=== PATIENT | female | born 1940 | race Caucasian/White ===

== ENCOUNTER 2023-09-26 23:48 | Inpatient (IN) | payer MEDICARE, OTHER, SELFPAY ==
[2023-09-26 20:56] VITALS: BP 118/78
[2023-09-26 21:00] VITALS: BP 125/71
--- NOTE | 2023-09-26 21:15 | ED.GENMED ---
History of Present Illness
General
Chief Complaint: Breathing Problem
Source: patient, spouse and family
Time Seen by Provider: 09/26/23 21:06
Travel History
Have you had any contact with someone who has COVID-19?: Yes
Comment: unknown
Do you have any symptoms of coronavirus? Fever > 100 degrees, chills, cough, shortness of breath, sore throat, loss of taste or smell, muscle aches, or headache?: Yes
Symptoms:: cough
History of Present Illness
History of Present Illness:
83-year-old female presents to the emergency room complaining of malaise, poor appetite, nausea, occasional diarrhea. Patient has been experiencing a decline in her health over the past week or so. She was diagnosed with COVID 2 weeks ago. In
addition the patient has chronic conditions including rheumatoid arthritis, diabetes, hypertension among others. She has received infusions for rheumatoid arthritis recently. No known fever. Patient had to be hypoxic by medics on the way in.
Past History
Past History
ED Past Medical History: GERD, NIDDM and Other (Kidney stones)
ED Past Surgical History: Appendectomy, Cholecystectomy, Gynecological (Hysterectomy), Orthopedic (Right rotator cuff), Tonsilectomy, Urological (Lithotripsy) and Other (Hiatal hernia repair, left breast lumpectomy)
Social History
Tobacco: Non-smoker
Alcohol: None
Drug: None
Personal:
Phy Exam
Physical Exam
Physical Exam:
General: Awake, Alert, Oriented X3. Appears weak, chronically ill
Vitals: Hypoxic on room air
Head: Atraumatic
Eyes: Pupils equal, EOMI
Throat: Airway intact, no exudates, dry mucosa
Neck: Trachea midline
Lungs: Crackles bilateral bases
Heart: Regular rate, no murmurs
Abd: Soft, Nontender, No pulsatile mass
Neuro: Nonfocal
Skin: Warm, dry, no rash
Extremities: pulses equal b/l, no edema
Scores
Heart Failure Risk
Heart Failure Risk Score: Not Applicable
Course
Orders/Labs/Results
Orders:
Orders
09/26/23 21:00
Electrocardiogram (*1) Urgent
Reason for Study: Other
Other Reason for Exam: Possible Sepsis
Cardiac Monitoring- Treatment ONCE
IV Insert/Care/Rem.- Treatment PRN
Straight cath- Treatment ONCE
O2 Therapy [RESP] Urgent
Titrate/Wean O2 to maintain O2 sat greater than (%): 93
Special Instructions: TO MAINTAIN CONTINUOUS O2 SATS > OR = 93%
Pulse Ox/cont/shift [RESP] Urgent
Quantity: 1
Special Instructions: CONTINUOUS
09/26/23 21:01
EKG- Treatment ONCE
09/26/23 21:15
0.9% Sodium Chloride 1000 ml [Nss] 1,000 ml IV BOLUS
09/26/23 21:18
Urinalysis Reflex To Culture Urgent
Date Specimen was Collected: 09/27/23
Time Specimen was Collected: 00:19
09/26/23 21:22
COVID-19 Antigen Urgent
Source: Nasal Swab
Complete Blood Count/With Diff Urgent
Comprehensive Metabolic Panel Urgent
Lactic Acid Q4H
Comment: ON ICE, CANCEL 2ND ORDER IF FIRST LACTIC ACID LEVEL <2
Magnesium Urgent
Blood Culture Q30M
[place] Source: Blood/Venous
Specimen Description:
Comment: FROM 2 SEPARATE SITES
Influenza A+B Rapid Molecular Urgent
[place] Source: Nasal Swab
Specimen Description:
09/26/23 22:11
Blood Culture Q30M
[place] Source: Blood/Venous
Specimen Description:
Comment: FROM 2 SEPARATE SITES
09/26/23 22:13
Chest [CR Chest - 2 Views ] Urgent
Comment:
Reason For Exam: recent COVID weakness
09/26/23 22:16
Potassium Chloride 10% Elixir [KCl Elixir] 80 meq PO NOW STA
09/26/23 22:59
Potassium Chloride [KCl] 40 meq 0.9% Sodium Chloride 250 ml [Nss] 250 ml IV NOW
09/26/23 23:12
Admit/Transfer Patient As Directed
Co-Sign Provider:
Level of Care: Inpatient admission
Assign to:: Telemetry
Physician / Group: Grant
Diagnosis: Hypokalemia
Reason for Telemetry: Other
Other Reason for Telemetry: Electrolyte abnormalitis
Date to Stop Telemetry: 09/28/23
Time to Stop Telemetry: 11:00
Reason for Hospitalization: potassium replacement
Expected length of stay greater than two midnights?: Yes
ELOS- Estimated Length of Stay in days: 3
I certify the patient meets the requirements for IP care: Yes
09/26/23 23:23
Code Status As Directed
Resuscitation Status: Do not resuscitate
Reached after discussion with pt or family/Healthcare POA: Yes
DNR Bracelet Application ONCE
09/26/23 23:30
Add On- LAB Urgent
Tests Added?: magnesium
09/27/23 00:20
Lactic Acid Q4H
Comment: ON ICE, CANCEL 2ND ORDER IF FIRST LACTIC ACID LEVEL <2
09/27/23 03:00
Potassium Routine
09/28/23 11:00
DC Protocol for Telemetry ONCE
Abnormal Lab Results
09/26/23
21:22
WBC 10.9 H 10^3/uL
(4.8-10.8)
RBC 4.18 L 10^6/uL
(4.20-5.40)
MCH 33.5 H pg
(27.0-31.0)
Abs Immat Gran (auto) 0.1 H 10^3/uL
(0-0.05)
Absolute Neuts (auto) 6.8 H 10^3/uL
(1.4-6.5)
Absolute Monos (auto) 1.0 H 10^3/uL
(0.1-0.6)
Sodium 134 L mmol/L
(135-145)
Potassium 2.7 L* mmol/L
(3.5-5.1)
Chloride 96 L mmol/L
(98-107)
Glucose 110 H mg/dl
(70-99)
Lactic Acid 2.1 H mmol/L
(0.7-2.0)
Total Protein 5.7 L g/dl
(6.3-8.2)
Albumin 3.2 L g/dl
(3.5-5.0)
09/26/23 21:22
09/26/23 21:22
Vital Signs
Initial and Last Documented VS:
Initial Vital Signs
Temp Pulse Resp Pulse Ox
97.6 F 84 26 90
09/26/23 20:51 09/26/23 20:51 09/26/23 20:51 09/26/23 20:51
Last Documented Vital Signs
Temp Pulse Resp BP Pulse Ox
97.6 F 79 20 136/74 93
09/26/23 20:51 09/27/23 01:00 09/27/23 01:00 09/27/23 01:00 09/27/23 01:00
MDM/Problems Addressed
Differential Diagnosis Includes:
Pneumonia, pneumonitis, heart failure, anemia, sepsis, UTI
MDM/Problems Addressed:
Patient found to have significant hypokalemia which certainly would explain much of the patient's weakness. Pulse ox consistently at or below 90 prior to oxygen. Chest x-ray shows no acute abnormality. Patient will require hospitalization for
hydration and potassium replacement
Chronic conditions affecting care: DM and HTN
*Pulse Oximetry
Patient hypoxic: no
*EKG
Interpreted by ED Provider?: Yes
Heart Rate: 84
Rate: normal
Rhythm: sinus
QRS Pattern: other (left ant fasicular block)
Ischemia: non-specific ST changes
*Industrial Radiographer Interpretation
Rate: normal
Rhythm: sinus
*Critical Care Note
Total Time (30-74mins, 75-104mins- exclusive of procedures): Not Applicable
Patient Management
Social determinants of health affecting care: Strong social support
ED Attending Note
-
Portions of this chart may have been created with voice recognition software.� Occasional wrong word or��sound alike� substitutions may have occurred due to the inherent limitations of voice recognition software.
Discharge Plan
Departure
Patient Disposition: Admit
Date of Disposition: 09/26/23
Time of Disposition: 22:55
Presentation/result/management discussed w/ accepting MD/DO: Hospitalist
Condition: Fair
Discharge Problem:
Hypoxia, Hypokalemia
Interventions
Interventions:
*Risk Screen - Suicide Last Done: 09/26/23 20:51
*General Assessment Last Done: 09/26/23 20:51
*Neglect/Abuse Screening Last Done: 09/26/23 20:51
ED- Fall Risk Assessment Last Done: 09/26/23 20:51
*ED COVID-19 Vaccine History Last Done: 09/26/23 20:51
ED- Cardiac Assessment Last Done: 09/26/23 21:36
ED- Pulmonary Assessment Last Done: 09/26/23 21:36
[2023-09-26] MEDS: NSS 1000 IV (21:30)
[2023-09-26 21:35] LABS: % Basophils 0.7 % (0-2); % Eosinophils 0.6 % (0-6); % Immature Granulocytes 0.5 % (0-0.5); % Lymphocytes 26.7 % (20.5-51.1); % Monocytes 8.7 % (1.7-9.3); % Neutrophils 62.8 % (42.2-75.2); Absolute Basophils 0.1 10^3/uL (0-0.2); Absolute Eosinophils 0.1 10^3/uL (0-0.7); Absolute Immature Granulocytes 0.1 10^3/uL (0-0.05); Absolute Lymphocytes 2.9 10^3/uL (1.2-3.4); Absolute Neutrophils 6.8 10^3/uL (1.4-6.5); Mean Corp Hgb Conc. 36.8 g/dL (33.0-37.0); Mean Corpuscular Hgb 33.5 pg (27.0-31.0); Mean Corpuscular Volume 90.9 fL (81.0-99.0); Mean Platelet Volume 9.2 fL (7.4-10.4); Nucleated Red Blood Cells % 0 %; Platelet Count 321 10^3/uL (130-400); Red Blood Cell Count 4.18 10^6/uL (4.20-5.40); Red Cell Dist. Width 13.9 % (11.5-14.5); White Blood Cell Count 10.9 10^3/uL (4.8-10.8)
[2023-09-26 21:42] LABS: Albumin 3.2 g/dl (3.5-5.0); Blood Urea Nitrogen 12 mg/dl (7-17); Carbon Dioxide 27 mmol/L (22-30); Estimated Creatinine Clearance 41 ml/min; Lactic Acid 2.1 mmol/L (0.7-2.0); Total Bilirubin 0.8 mg/dl (0.2-1.3); eGFR > 60.00
[2023-09-26 21:43] LABS: ALT (SGPT) 16 U/L (0-35); AST (SGOT) 27 U/L (14-36); Alkaline Phosphatase 70 U/L (38-126); COVID-19 Antigen Negative (Negative); Calcium 8.6 mg/dl (8.4-10.2); Glucose 110 mg/dl (70-99); Total Protein 5.7 g/dl (6.3-8.2)
[2023-09-26 21:58] LABS: Chloride 96 mmol/L (98-107); Potassium 2.7 mmol/L (3.5-5.1); Sodium 134 mmol/L (135-145)
[2023-09-26 22:00] VITALS: BP 130/72
[2023-09-26] MEDS: KCL ELIXIR 80 MEQ PO (22:34)
[2023-09-26 23:00] VITALS: BP 114/74
--- NOTE | 2023-09-26 23:29 | HPS.HSE ---
Addendum entered and electronically signed by Jose Burns MD 09/26/23 23:44:
Patient seen and examined independently with PA.� 83-year-old female past medical history of diabetes, GERD, hypertension, history of DVT on Eliquis, presenting with dry heaving/nausea, decreased p.o. intake, dizziness over the past month after her
dose of Ozempic was increased to 0.5 mg shortly prior.� She had a few episodes of diarrhea in the past few days.� She also had COVID infection a few weeks ago.� Symptoms likely from Ozempic toxicity.� Patient clinically dehydrated with hypokalemia
on labs.� Leukocytosis likely reactive from dehydration.�
Would discontinue Ozempic at this time.� IV fluids.� Potassium repletion.� Check magnesium.� Patient was placed on 2 L of oxygen but unclear if truly hypoxic, wean oxygen.� Chest x-ray shows left lower lobe atelectasis.� Incentive spirometry.� PT/OT.
Original Note:
Family Physician
-
Family Physician: Mary Goyal DO
Chief Complaint
-
Weakness
History of Present Illness
Patient is an 83-year-old female past medical history of hypertension, hyperlipidemia, diabetes and rheumatoid arthritis who presents with weakness, fatigue, poor appetite and diarrhea. Patient reports she had weeks ago and still has not returned
back to her usual. She has noted continued decline over the last week. Family at the bedside note that she has had poor oral intake with complaints of nausea and dry heaves. She has also had watery diarrhea. She denies fevers, sweats or chills.
Upon further discussion with patient's family they note she was started on Ozempic about 2 months ago with increase in the dosage a few weeks ago. They note since being on Ozempic, in particular with increased dose patient has not been herself.
Medical History
Past Medical History
Past Medical History: Reports Other
Additional Past Medical History:
Essential Hypertension
Hyperlipidemia
Diabetes Mellitus, Type II
Rheumatoid Arthritis
GERD/Gastritis
Osteoporosis
Recurrent UTIs
Hx Uterine CA
Hx DVT
Past Surgical History: Reports Other
Additional Past Surgical History:
Appendectomy
Cholecystectomy
Hysterectomy
Left breast lumpectomy
Umbilical Hernia
Tonsillectomy
Left total knee replacement
Left Shoulder replacement
Social History
Tobacco: Non-smoker
Alcohol: None
Drug: None
Personal:
Family History
Family History: Not pertinent
Allergies / Home Medications
Allergies reflects when Allergies were last updated in [facility].
Home Medications with original date entered in [facility]
Allergy/Medication List:
Allergies
Allergy/AdvReac Type Severity Reaction Status Date / Time
Iodinated Contrast Media Allergy Anaphylaxis Verified 09/26/23 20:58
[IV Dye, Iodine Containing
Contrast ]
iodine Allergy Anaphylaxis Verified 09/26/23 20:58
metformin Allergy vomiting,di Verified 09/26/23 20:58
arrhea
metformin HCl Allergy vomiting,di Verified 09/26/23 20:58
[From Glucophage] arrhea
tetracycline Allergy stomach Verified 09/26/23 20:58
pain
Home Medications
simvastatin 10 mg tablet 10 mg PO HS High cholesterol 02/12/12
biotin 5,000 mcg disintegrating tablet 2,500 mcg PO HS Supplement 03/07/22
cholecalciferol (vitamin D3) 50 mcg (2,000 unit) chewable tablet 50 mcg PO DAILY Supplement 03/07/22
folic acid 1 mg tablet 1 mg PO BID Supplement 03/07/22
methotrexate sodium 2.5 mg tablet 20 mg PO TH@1700 Autoimmune disorder 03/07/22
metoprolol succinate 25 mg tablet,extended release 24 hr 25 mg PO DAILY Blood pressure 03/07/22
lisinopril 10 mg tablet 10 mg PO DAILY Blood pressure 03/08/22
apixaban 2.5 mg tablet (Eliquis) 2.5 mg PO BID 09/26/23
cranberry extract 200 mg capsule (Ellura) 400 mg PO DAILY 09/26/23
denosumab 60 mg/mL subcutaneous syringe (Prolia) 60 mg SC [id number] 09/26/23
hydrocodone 7.5 mg-acetaminophen 325 mg tablet 1 tab PO TIDPRN PRN severe pains 09/26/23
methenamine hippurate 1 gram tablet (Hiprex) 1 g PO BID 09/26/23
omeprazole 20 mg tablet,delayed release 20 mg PO DAILY 09/26/23
semaglutide 0.25 mg or 0.5 mg (2 mg/3 mL) subcutaneous pen injector (Ozempic) 0.25 mg SC TU 09/26/23
Review of Systems
-
A 12 point ROS was completed and negative except as noted: Yes
Constitutional: Denies Fever or Chills
Respiratory: Reports Cough; Denies Trouble Breathing
Cardiac: Denies Chest Pain or Palpitations
Abdomen/GI: Reports Nausea and Diarrhea; Denies Abdominal Pain
Physical Exam
Vital Signs
Vital Signs
Temp Pulse Resp BP Pulse Ox
97.6 F 85 32 130/72 90
09/26/23 20:51 09/26/23 22:45 09/26/23 22:45 09/26/23 22:00 09/26/23 21:36
Physical Exam
General: Comfortable and Conversant
HEENT: NormoCephalic, Anicteric, Oxygen (Nasal Cannula) and Other (Dry mucous membrane)
Respiratory: Rales (Bilateral bases) and Non Labored Respirations
Cardiac: S1/S2 and Regular Rhythm
GI: Soft, Non Tender and Non Distended
Musculoskeletal: No Clubbing, No Cyanosis and No Edema
Skin: Warm and Dry
Neuro: Awake, Alert, Oriented and Nonfocal/grossly intact
Laboratory Results
-
09/26/23 21:22
09/26/23 21:22
Laboratory Results
Lactic Acid 2.1 mmol/L (0.7-2.0) H 09/26/23 21:22
Total Bilirubin 0.8 mg/dl (0.2-1.3) 09/26/23 21:22
AST 27 U/L (14-36) 09/26/23 21:22
ALT 16 U/L (0-35) 09/26/23 21:22
Alkaline Phosphatase 70 U/L (38-126) 09/26/23 21:22
Data Reviewed
-
Diagnostic Radiology: Report Reviewed by me
Lab Data: Labs Reviewed by me
Impression/Plan
-
Hypokalemia likely related to volume depletion and GI Loss
-Continue IVFs
-Replace potassium PO and IV
-Check magnesium'
-Repeat potassium level in AM
Nausea/Diarrhea and Poor Appetite suspect related to Ozempic
-Reviewed with patient and family about discontinuing Ozempic and monitoring symtpoms
Recent COVID - Currently on oxygen though unclear if truly hypoxic
-CXR negative for pneumonia
-Encourage use of incentive spirometer for atelectasis
Essential Hypertension
-Continue lisinopril and metoprolol
Hyperlipidemia
-Continue statin
Diabetes Mellitus, Type II
-Stop Ozempic
-Monitor sugars and continue coverage insulin
Rheumatoid Arthritis
-Patient maintained on methotrexate as outpatient
GERD/Gastritis
-Continue Protonix
Recurrent UTIs
-Continue Hiprex
Hx DVT
-Continue Eliquis for prophylaxis
Code Status:DNR
[2023-09-27] VITALS (8 sets, daily range): BP systolic 86–154; BP diastolic 52–98; PULSE 120; O2SAT 90; BMI 28.7
[2023-09-27 00:31] LABS: Magnesium 1.8 mg/dl (1.6-2.3)
[2023-09-27] MEDS: KCL 270 MEQ IV (00:32)
[2023-09-27 00:48] LABS: Urine Albumin Trace (Neg - Trace); Urine Bilirubin Negative (Negative); Urine Character Clear (Clear); Urine Color Yellow; Urine Glucose Negative (Negative); Urine Ketone 1+ (Negative); Urine Leukocyte Trace (Negative); Urine Nitrite Negative (Negative); Urine Occult Blood Negative (Negative); Urine Specific Gravity 1.015 (<1.030); Urine Urobilinogen Negative (Neg - 1+)
[2023-09-27 00:53] LABS: Lactic Acid 1.5 mmol/L (0.7-2.0)
[2023-09-27 01:44] LABS: Urine Hyaline Cast 0-2 /LPF (0-2); Urine Red Blood Cell 0-2 /HPF (0-2); Urine Squamous Cell 16-20 /LPF (Few)
[2023-09-27 01:45] LABS: Urine Bacteria Few (Negative)
[2023-09-27] MEDS: NSS 1000 IV ×2 (02:57→21:28)
[2023-09-27] MEDS: VITAMIN D3 (cholecalciferol) 50 MCG PO (07:48)
[2023-09-27] MEDS: FOLVITE 1 MG PO ×2 (07:48→19:38)
[2023-09-27 07:49] LABS: Hematocrit 37.7 % (37.0-47.0); Hemoglobin 13.3 g/dL (12.0-16.0); Mean Corp Hgb Conc. 35.3 g/dL (33.0-37.0); Mean Corpuscular Hgb 33.5 pg (27.0-31.0); Mean Platelet Volume 9.4 fL (7.4-10.4); Platelet Count 300 10^3/uL (130-400); Red Blood Cell Count 3.97 10^6/uL (4.20-5.40); Red Cell Dist. Width 14.1 % (11.5-14.5); White Blood Cell Count 10.5 10^3/uL (4.8-10.8)
[2023-09-27] MEDS: TOPROL XL 25 MG PO (07:50)
[2023-09-27] MEDS: ZESTRIL 10 MG PO (07:50)
[2023-09-27] MEDS: ELIQUIS 2.5 MG PO ×2 (07:50→19:38)
[2023-09-27] MEDS: PROTONIX 40 MG PO (07:51)
[2023-09-27] MEDS: HIPREX 1 GRAM PO ×2 (07:51→19:38)
[2023-09-27 08:08] LABS: Blood Urea Nitrogen 11 mg/dl (7-17); Calcium 7.6 mg/dl (8.4-10.2); Carbon Dioxide 18 mmol/L (22-30); Chloride 108 mmol/L (98-107); Estimated Creatinine Clearance 55 ml/min; Glucose 125 mg/dl (70-99); Magnesium 1.6 mg/dl (1.6-2.3); Potassium 3.9 mmol/L (3.5-5.1); Sodium 137 mmol/L (135-145); eGFR > 60.00
[2023-09-27 08:56] LABS: Glycohemoglobin (HgbA1c) 6.1 % (4.0-5.6)
[2023-09-27] MEDS: NOVOLOG FLEXPEN-LOW RESISTANCE SC ×3 (09:06→17:40)
[2023-09-27 10:48] LABS: Glucose - Point of Care 132 mg/dl (70-99)
[2023-09-27 11:44] LABS: Glucose - Point of Care 166 mg/dl (70-99)
--- NOTE | 2023-09-27 12:54 | CM ---
Reviewed chart, met with patient to obtain information for assessment. Patient's daughter was at bedside and was able to provide information for assessment.
Patient lives with her spouse in a two story home with two steps to enter with a first floor set up. There is a railing next to the steps to enter.
Patient needs assistance with her ADLs, personal care, dressing and bathing and she is supervision for ambulation with her rollator. Her spouse and two daughters who both live within 10 minutes are able to assist her with her needs, however,
patient's daughter did relay that patient is a fall risk and has had several falls within the past year.
Patient's daughter stated that patient is in need of assistance with transfers.
Patient's spouse and her daughters assist with the cooking, cleaning, laundry and teacher theater arts.
Patient has a prescription plan and uses [facility] pharmacy in [place] for all of her medications.
She has a PCP, Dr. Mary Goyal.
Patient's daughter communicated that patient's spouse works during the day and she is fearful of her being left unattended as she was deconditioned and weak, prior to her hospitalization.
Per RN, patient is on 4 liters of o2. Her daughter stated that she is new to o2. She has been hypoxic upon admission and throughout her stay when she is put on room air.
Will most likely need to discuss SNF options with patient and her family as patient is new to o2 and may become more deconditioned through acute care stay.
Attending came in to see patient, will review PT/OT and meet back with patient and her family to discuss discharge planning.
Plan: Case management will continue to follow and assist with discharge planning. Most likely patient will need a SNF. No authorization is needed for transfer.
[2023-09-27 14:05] LABS: HCO3 17.9 mmol/L (21-28); O2 Saturation % 97.1 % (94-98); PCO2 27 mmHg (32-35); PO2 76 mmHg (83-108); pH 7.43 (7.35-7.45)
--- NOTE | 2023-09-27 14:21 | W.PN.HOSP.TC ---
Addendum entered and electronically signed by Caleb Lemos MD 09/27/23 16:54:
Patient seen and examined
Discussed with resident
Discussed with nursing.
Impression:
Presentation with generalized fatigue, recurrent nausea and vomiting, oral intake.
Toxic metabolic encephalopathy likely multifactorial due to hypoxia, dehydration.
Acute hypoxic respiratory failure with desaturations down to 84%
Bilateral infiltrates, with differential: Pneumonia in immunocompromised patient, versus noninfectious including vasculitis, post-COVID lung less likely pulmonary edema.
Elevated anion gap metabolic acidosis
Severe hypokalemia.
Recent COVID-19 infection.
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
Essential hypertension
Diabetes mellitus type 2.
GERD/hiatal hernia
History of UTI with E. coli.
Chronic DVT on Eliquis
Plan:
Low oral intake with weight loss, failure to thrive, clinically dehydrated with severe hypokalemia.
Suspect possibly Ozempic, also could be with contribution of hypoxia prior to presentation.
Hold Ozempic
IV hydration
Replete potassium.
Acute hypoxic respiratory failure
Chest x-ray with no acute findings.
CT scan without contrast with diffuse bilateral infiltrates.
Differential as above.
Speech and swallow consultation.
Procalcitonin.
Vasculitis serology/JOLENE level
Pulmonology consultation
Hold methotrexate/Remicade.
Empiric antibiotics vancomycin and Zithromax
Follow blood cultures
Type 2 diabetes
Update hemoglobin A1c
Basal bolus protocol
Stop Ozempic given possible side effects.
Original Note:
Today's Communication/Plan
-
- IV antibiotics
IV hydration
Monitor BMP levels
Speech therapy evaluation
pending blood cultures and vasculitides work up.
Assessment / Plan
Assessment / Plan
Impression:
82 yo F with complex PMHx presents to the ER for not feeling herself lately, nausea and decreased appetite for 3 weeks, after being initiated on Ozempic.
Hypokalemia - Resolved
Toxic metabolic encephalopathy
nausea and poor appetite secondary to Ozempic.
Plan:
Toxic metabolic encephalopathy.
Dehydration vs electrolytes vs Chronic neurological conditions vs pneumonia
Confused, Urine analysis negative, Blood cultures and stool culture pending.
Chest X-ray negative
Hepatic function tests, and RFT WNL.
peripheral Doppler US of legs - negative
CT head 09/27/23
No acute intracranial abnormality.
Unchanged moderate chronic white matter disease and small chronic lacunar infarct within the right basal ganglia.
CT chest 09/27/23
Fairly extensive patchy bilateral airspace disease, most prominent within both upper lobes, suspicious for multifocal pneumonia.
Trace bilateral pleural effusions with adjacent atelectasis.
Additional findings above.
Hypokalemia - resolved, CO2 - at 18,
ABG - Ph -7.43, PCO2 - 27, PaO2 - 76, HCO3 - 17.7, - metabolic acidosis with high anion gap with Resp compensation
Given hbA1C and POC glucose readings less likely secondary to hyper/hypoglycemia.
Abnormal Chest CT scan -
pneumonia vs rheumatoid lung vs vasculitides vs aspiration
predominantly in the upper lobes
suspect vasculitides in the context of recent Remicade infusion
ANCA titres, JOLENE levels pending
Speech therapy evaluation
pulmonology consulted, on board.
started on zosyn and azithromycin
Hypokalemia - Resolved
secondary to dehydration.
Continue IVFs
potassium PO and IV held for today.
Check magnesium and potassium level in AM
Recent COVID,
Hypoxemia on room air, at 83% today morning.
Currently on 2l Nasal cannula flow.
CXR negative for pneumonia
Encourage use of incentive spirometer for atelectasis
Nausea/Diarrhea and Poor Appetite
large Hiatal hernia vs secondary to gastroparesis from Ozempic
Ozempic discontinued
Monitor for symptoms
Benign HTN
continue home meds, lisinopril and metoprolol
NIDDM
hold Ozempic
insulin basal bolus regimen and serial accuchecks
recurrent UTI
On Hiprex
Hx DVT
Continue Eliquis.
Code Status:DNR
Conditions CLAIMS ADJUSTER:
Essential Hypertension
Hyperlipidemia
Diabetes Mellitus, Type II
Rheumatoid Arthritis
GERD/Gastritis
Osteoporosis
Recurrent UTIs
Hx Uterine CA
Hx DVT
Continue protonix, statin and methotrexate.
Anticipated Discharge: 24 - 48 hours
Subjective/Interval History
-
Date of Service: September 27, 2023
Patient appears very confused, talks about her grandmother knitting her socks and jacket she wore today, thinks her 's phone is ringing
Not oriented to time and person, oriented to place
Extensive h/o DVT, on multiple anticoag meds in the past, hypoxemic at 83%
Objective Data
-
Labs:
Laboratory Results
09/27/23 09/27/23 09/27/23
07:03 07:03 13:55
WBC 10.5
Hgb 13.3
Hct 37.7
Plt Count 300
HCO3 17.9 L
Sodium 137
Potassium Cancelled 3.9 D
Chloride 108 H
Carbon Dioxide 18 L
BUN 11
Creatinine 0.6
Glucose 125 H
Calcium 7.6 L
Vital Signs:
Vital Signs
Temp Pulse Resp BP Pulse Ox
97.6 F 105 26 119/76 96
09/27/23 11:31 09/27/23 11:31 09/27/23 11:31 09/27/23 11:31 09/27/23 11:31
I&O
09/26/23 09/27/23 09/28/23
06:59 06:59 06:59
Intake Total 1250 / 1250
Output Total 200 / 200
Balance 1050 / 1050
Review of Systems
-
Unable to obtain full review of systems at this time due to: Other (patient confused)
History Source: Family
Constitutional: Reports Fatigue
Respiratory: Reports Trouble Breathing
Musculoskeletal: Reports Other (frequent falls, x 4 times in last 6months to 1 year)
Neuro: Reports Dizzy and Lightheadedness
Physical Exam
-
General: No Apparent Distress and Comfortable (on 2l nasal cannula flow)
HEENT: Normocephalic, Atraumatic and Moist Mucous Membranes
Respiratory: Decreased Breath Sounds (b/l upper lobes) and Other (left sided crackles in lower lobe)
Cardiac: Regular Rhythm, S1/S2 and Other (no murmur, rubs and gallops)
Breast: Deferred by me
GI: Soft, Nontender, Nondistended and Normal Bowel Sounds
Musculoskeletal: No Edema (b/l LE)
Skin: Warm
Neuro: Awake, Nonfocal/Grossly Intact and Other (Not oriented to person and place)
[2023-09-27] MEDS: ZITHROMAX INFUSION 250 IV (17:09)
--- NOTE | 2023-09-27 17:15 | CON.PUL ---
Consultation
Consultation Request
Date/Time Consultation Requested: 09/27/2023
Date/Time Consultation Performed: 09/27/2023
Reason for Consultation: Abnormal CT imaging, pneumonia
Medical History
-
History of Present Illness:
History obtained from the patient, , 2 daughters at the bedside along with reviewing records. 83-year-old female with complex medical history, rheumatoid arthritis diagnosed in 2021 on methotrexate started sometime in 2021?, Remicade started
July 2023, history of DVT x 2, last 40 years ago, presented with multiple symptoms 09/26/2023 including shortness of breath, cough, recently diagnosed with Covid early August based on symptoms. Upon arrival, found to be afebrile, pulse 84,
breathing at 26, 90%. Patient was found to have electrolyte abnormalities, chest x-ray without any acute findings per report. Patient was apparently started on Ozempic early July and since then developed increased dizziness, vertigo. She fell
around [place] while at [employer]. Hospital stay reviewed, given IV fluids, potassium. Due to hypoxia, 84%, CT chest obtained. We are asked to comment on CT imaging.
Patient does describe cough over the past 3 to 4 weeks, intermittently productive, no hemoptysis. There is no clear history of abdominal pain, diarrhea. No clear history of difficulty swallowing or choking. Patient has had 25 pound weight loss
over the past 6 months.
.
PMH: RA followed by rheumatology on methotrexate for at least 2 years, recently started Remicade July 2023, history of DVT at age 20 and at age 40, none since, on chronic anticoagulation, diabetes, hypertension, Covid pneumonia August 2023.
History of uterine cancer in the past
Past Medical History
Past Medical History: None (See above)
Past Surgical History: None (See above)
Social History
Tobacco: Non-smoker
Alcohol: None
Drug: None
Personal:
Living: With Family
Employment: Retired
Family History
Family History: Other (Family history negative for blood clots, lung disease)
Allergies / Home Medications
Allergies
Allergy/AdvReac Type Severity Reaction Status Date / Time
Iodinated Contrast Media Allergy Anaphylaxis Verified 09/26/23 20:58
[IV Dye, Iodine Containing
Contrast ]
iodine Allergy Anaphylaxis Verified 09/26/23 20:58
metformin Allergy vomiting,di Verified 09/26/23 20:58
arrhea
metformin HCl Allergy vomiting,di Verified 09/26/23 20:58
[From Glucophage] arrhea
tetracycline Allergy stomach Verified 09/26/23 20:58
pain
Home Medications
Medication Instructions Recorded Confirmed Last Taken Type
simvastatin 10 mg tablet 10 mg PO HS High cholesterol 02/12/12 09/26/23 09/26/23 History
biotin 5,000 mcg disintegrating 2,500 mcg PO HS Supplement 03/07/22 09/26/23 09/26/23 History
tablet
cholecalciferol (vitamin D3) 50 50 mcg PO DAILY Supplement 03/07/22 09/26/23 09/26/23 History
mcg (2,000 unit) chewable tablet
folic acid 1 mg tablet 1 mg PO BID Supplement 03/07/22 09/26/23 09/26/23 History
methotrexate sodium 2.5 mg tablet 20 mg PO TH@1700 Autoimmune 03/07/22 09/26/23 09/26/23 History
disorder
metoprolol succinate 25 mg 25 mg PO DAILY Blood pressure 03/07/22 09/26/23 09/26/23 History
tablet,extended release 24 hr
lisinopril 10 mg tablet 10 mg PO DAILY Blood pressure 03/08/22 09/26/23 09/26/23 History
apixaban 2.5 mg tablet (Eliquis) 2.5 mg PO BID Blood Clot 09/26/23 09/26/23 09/26/23 20:00 History
Prevention/Tx
cranberry extract 200 mg capsule 400 mg PO DAILY Supplement 09/26/23 09/26/23 09/26/23 History
(Ellura)
denosumab 60 mg/mL subcutaneous 60 mg SC [id number] osteoporosis 09/26/23 09/26/23 Unknown History
syringe (Prolia)
hydrocodone 7.5 mg-acetaminophen 1 tab PO TIDPRN PRN severe pains 09/26/23 09/26/23 Unknown History
325 mg tablet
methenamine hippurate 1 gram 1 g PO BID Urinary Issue 09/26/23 09/26/23 09/26/23 History
tablet (Hiprex)
omeprazole 20 mg tablet,delayed 20 mg PO DAILY Gastrointestinal 09/26/23 09/26/23 09/26/23 History
release Issue
semaglutide 0.25 mg or 0.5 mg (2 0.25 mg SC TU diabetes 09/26/23 09/26/23 09/24/23 History
mg/3 mL) subcutaneous pen injector
(Ozempic)
Review of Systems
-
History Source: Patient and Family
All other systems: Negative unless noted
Vitals / Labs / Diagnostic Testing
Vital Signs
Temp Pulse Resp BP Pulse Ox
97.6 F 105 26 119/76 96
09/27/23 11:31 09/27/23 11:31 09/27/23 11:31 09/27/23 11:31 09/27/23 11:31
Lab Data
09/27/23 07:03
09/27/23 07:03
Laboratory Results
09/27/23
13:55
pH 7.43
pCO2 27 L
pO2 76 L
HCO3 17.9 L
O2 Delivery Level
Microbiology
09/26/23 21:22 Nasal Swab Influenza Types A & B (SAROJ) - Final
Negative for Influenza A & B, NAAT
Negative results must be combined with clinical observations
and patient history.
Nucleic Acid Amplification test (NAAT)performed on the
[employer] platform.
Diagnostic Testing:
Physical Exam
-
HEENT: Normocephalic and Anicteric
Cardiovascular: S1/S2, Regular Rhythm, Murmur (n), Rub (n), Peripheral Edema (n) and Calf Tenderness
Respiratory: Wheeze (n), Rales (Bilateral posterior), Rhonchi (n), Non-Labored Respirations and Other (Decreased breath sounds)
GI: Soft, Non Distended and Non Tender
Neurology: Other (Lethargic but arousable, answers questions. Neuroexam nonfocal, moves all extremities)
Skin: Other (No clubbing, cyanosis) and Other (No rash)
General: Comfortable (Fatigued appearing)
Assessment
-
83-year-old female with history of rheumatoid arthritis on chronic methotrexate therapy, recently started on Remicade July 2023, COVID infection early August 2023, with general malaise, vertigo, lightheadedness, anorexia since initiation of
Ozempic early July. Admitted 09/26/2023 with electrolyte abnormalities, dehydration. Found to be hypoxic, 84% with normal chest x-ray. CT chest was obtained. We are asked to comment on her CT findings
Acute hypoxic respiratory insufficiency, 84%
Admitted 09/26/2023
Bilateral pulmonary infiltrates per CT imaging
Groundglass, areas of consolidation, small pleural effusions
Mild elevated lactate on admission, resolved
Metabolic acidemia per ABG
History of positive COVID
August 2023
3 weeks prior with cough per family
Positive COVID February 2022
Gait disturbance, vertigo
Recent fall July 2024
Conditions present prior to admission
Rheumatoid arthritis
Methotrexate since 2021
Remicade since July 2023
History of DVT x 2
On chronic anticoagulation. Eliquis
Coumadin in the past
Last episode age 40
History of uterine cancer
Hysterectomy
History of recurrent UTIs, followed by urology
Hiatal hernia/gastritis
Lxy-cvncqbs-eskoyvcqg diabetes
25 pound weight loss over the last 6 months
Plan/recommendations
Patient with extremely complex history. History obtained from multiple family members at bedside and reviewing outpatient records, hospital records
Salient features include slow decline in health over the last 3 months, 25 pound weight loss, poor appetite, vertigo, history of falls, gait disturbance
Patient developed a cough about 3 weeks ago
Although denies shortness of breath, family member states she was visibly short of breath with simple activity
Remicade started July 2023
Ozempic started July 2023
Has been on methotrexate since 2021 per records
Chest exam with crackles bilaterally poor air movement
I disagree with chest x-ray reading 09/26/2023
She has mild interstitial changes which appear to be peripheral predominant, especially so when compared to 09/23/2023
Differential is broad
Recent Covid illness noted
Aspiration pneumonitis, community-acquired infection, opportunistic infection are possibilities given chronic immunosuppression
Drug-induced pneumonitis (Remicade, methotrexate less likely given chronic use)
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
Rheumatoid arthritis related interstitial disease
Given that her chest x-ray does appear to be slightly progressive from 09/23 to 09/26/2023, I suspect there may be an acute component in the setting of subacute symptoms
There may be some mild peripheral predominant interstitial changes on her chest x-ray 02/12/2023 per my review (Subtle)
No significant interstitial changes at the lung bases on abdominal imaging February 2022
Moving forward
Agree with empiric antibiotics, despite negative procalcitonin
Can discontinue in the short-term if needed
Unfortunately, I do think we will have to start empiric steroids given the difficulty differentiate between rheumatoid arthritis with ILD (less likely given acuity) and COVID pneumonitis. Lets see how she does in the next 24 hours with low
threshold to start IV steroids
Sputum culture
Check Legionella antigen, streptococcal antigen
Aspiration precautions, head of bed elevated
Hold methotrexate as you are
Less likely CHF (nl ECHO)
Complex decision making process
Reviewed at length with family at bedside, family practice resident, primary service
Will follow
[2023-09-27 17:18] LABS: Procalcitonin < 0.05 ng/ml (0.0-0.25)
[2023-09-27 17:37] LABS: Glucose - Point of Care 115 mg/dl (70-99)
[2023-09-27] MEDS: ZOSYN 50 IV ×2 (18:22→23:56)
[2023-09-27 21:07] LABS: Glucose - Point of Care 129 mg/dl (70-99)
[2023-09-27] MEDS: LIPITOR 10 MG PO (21:28)
[2023-09-27] MEDS: NSS 250 IV (22:47)
[2023-09-28] VITALS (8 sets, daily range): BP systolic 93–112; BP diastolic 58–82; PULSE 98–114; BMI 29.1
--- NOTE | 2023-09-28 00:12 | PTCARENOTE ---
Pt. manual BP 86/52 at around 22:25. Pt. asymptomatic. MARTÍN Frazier notified. New order rec'd for 250 mL NSS bolus and to increase IVF to 100 mL/hr. After 250 mL bolus completed, BP rechecked. BP 109/68. Call velazquez within reach. Plan of care
ongoing.
[2023-09-28] MEDS: DUONEB 3 ML INH ×2 (03:07→16:48)
[2023-09-28] MEDS: ZOSYN 50 IV ×4 (05:50→23:10)
[2023-09-28 07:02] LABS: % Basophils 0.6 % (0-2); % Eosinophils 0.7 % (0-6); % Immature Granulocytes 0.6 % (0-0.5); % Lymphocytes 17.6 % (20.5-51.1); % Monocytes 6.6 % (1.7-9.3); % Neutrophils 73.9 % (42.2-75.2); Absolute Basophils 0.1 10^3/uL (0-0.2); Absolute Eosinophils 0.1 10^3/uL (0-0.7); Absolute Immature Granulocytes 0.1 10^3/uL (0-0.05); Absolute Lymphocytes 1.8 10^3/uL (1.2-3.4); Absolute Monocytes 0.7 10^3/uL (0.1-0.6); Absolute Neutrophils 7.4 10^3/uL (1.4-6.5); Hematocrit 34.8 % (37.0-47.0); Hemoglobin 12.6 g/dL (12.0-16.0); Mean Corp Hgb Conc. 36.2 g/dL (33.0-37.0); Mean Corpuscular Hgb 33.7 pg (27.0-31.0); Mean Platelet Volume 9.7 fL (7.4-10.4); Nucleated Red Blood Cells % 0 %; Platelet Count 283 10^3/uL (130-400); Red Blood Cell Count 3.74 10^6/uL (4.20-5.40); Red Cell Dist. Width 14.3 % (11.5-14.5)
[2023-09-28 07:27] LABS: Blood Urea Nitrogen 13 mg/dl (7-17); Calcium 7.1 mg/dl (8.4-10.2); Carbon Dioxide 17 mmol/L (22-30); Chloride 111 mmol/L (98-107); Estimated Creatinine Clearance 56 ml/min; Glucose 118 mg/dl (70-99); Potassium 3.5 mmol/L (3.5-5.1); Sodium 135 mmol/L (135-145); eGFR > 60.00
[2023-09-28] MEDS: ELIQUIS 2.5 MG PO ×2 (07:35→19:58)
[2023-09-28] MEDS: PROTONIX 40 MG PO (07:35)
[2023-09-28] MEDS: FOLVITE 1 MG PO ×2 (07:35→19:58)
[2023-09-28] MEDS: VITAMIN D3 (cholecalciferol) 50 MCG PO (07:36)
[2023-09-28] MEDS: HIPREX 1 GRAM PO ×2 (07:37→19:58)
[2023-09-28] MEDS: ZESTRIL PO (07:42)
[2023-09-28] MEDS: TOPROL XL PO (07:42)
[2023-09-28 07:51] LABS: Glucose - Point of Care 127 mg/dl (70-99)
[2023-09-28] MEDS: NOVOLOG FLEXPEN-LOW RESISTANCE SC ×3 (08:48→17:34)
[2023-09-28] MEDS: NSS 1000 IV (10:19)
--- NOTE | 2023-09-28 11:21 | W.PN.HOSP.TC ---
Today's Communication/Plan
-
Monitor vital signs and see plan
Wean oxygen as tolerated
Pulmonary to see today
Continue with antibiotics for now
normosol
Assessment / Plan
Assessment / Plan
Presentation with generalized fatigue, recurrent nausea and vomiting, oral intake.
Toxic metabolic encephalopathy likely multifactorial due to hypoxia, dehydration.
Acute hypoxic respiratory failure with desaturations down to 84%
Bilateral infiltrates, with differential: Pneumonia in immunocompromised patient, versus noninfectious including vasculitis, post-COVID lung less likely pulmonary edema.
Elevated anion gap metabolic acidosis
Severe hypokalemia.
Recent COVID-19 infection.
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
Essential hypertension
Diabetes mellitus type 2.
GERD/hiatal hernia
History of UTI with E. coli.
Chronic DVT on Eliquis
Plan:
Low oral intake with weight loss, failure to thrive, clinically dehydrated with severe hypokalemia.
Suspect possibly Ozempic, also could be with contribution of hypoxia prior to presentation.
Hold Ozempic
IV hydration; change to normosol
Acute hypoxic respiratory failure
Chest x-ray with no acute findings.
CT scan without contrast with diffuse bilateral infiltrates.
Differential as above.
Speech and swallow consultation.
Procalcitonin not significant however given symptoms we will treat with antibiotics for now
Vasculitis serology/JOLENE level
Pulmonology following, low threshold for steroids
Hold methotrexate/Remicade.
cw zosyn
Follow blood cultures
Type 2 diabetes
hemoglobin A1c 6.1
Basal bolus protocol
Stop Ozempic given possible side effects.
Recent COVID,
Currently on 4l Nasal cannula flow.
Encourage use of incentive spirometer for atelectasis
Benign HTN
continue home meds, lisinopril and metoprolol
recurrent UTI
On Hiprex
Hx DVT
Continue Eliquis.
Code Status:DNR
General: Comfortable and Conversant
HEENT: NormoCephalic, Anicteric, Oxygen (Nasal Cannula) and Other (Dry mucous membrane)
Respiratory: Rales (Bilateral bases) and Non Labored Respirations
Cardiac: S1/S2 and Regular Rhythm
GI: Soft, Non Tender and Non Distended
Musculoskeletal: No Clubbing, No Cyanosis and No Edema
Skin: Warm and Dry
Neuro: Awake, Alert, Oriented and Nonfocal/grossly intact
Anticipated Discharge: > 48 hours
Subjective/Interval History
-
Date of Service: September 28, 2023
denies pain
Objective Data
-
Labs:
Laboratory Results
09/28/23
06:02
WBC 10.0
Hgb 12.6
Hct 34.8 L
Plt Count 283
Sodium 135
Potassium 3.5
Chloride 111 H
Carbon Dioxide 17 L
BUN 13
Creatinine 0.6
Glucose 118 H
Calcium 7.1 L
Vital Signs:
Vital Signs
Temp Pulse Resp BP Pulse Ox
97.5 F 100 18 109/82 95
09/28/23 11:00 09/28/23 11:00 09/28/23 11:00 09/28/23 11:00 09/28/23 11:00
I&O
09/27/23 09/28/23 09/29/23
06:59 06:59 06:59
Intake Total 1250 / 1250 600 / 600
Output Total 200 / 200
Balance 1050 / 1050 600 / 600
[2023-09-28 11:38] LABS: Glucose - Point of Care 120 mg/dl (70-99)
--- NOTE | 2023-09-28 11:52 | CM ---
Chart reviewed. PT recommending snf
Spoke with pt and her at bedside
Discussed SNF and PT recs
Obtained choices of [facility]
Will refer in care port
CM will cont to follow for d/c needs
Plan - SNF - tbd when medically stable
[2023-09-28] MEDS: KCL 40 MEQ PO (12:08)
[2023-09-28 12:35] LABS: Magnesium 1.7 mg/dl (1.6-2.3)
[2023-09-28] MEDS: NORMOSOL-R 1000 IV (12:47)
--- NOTE | 2023-09-28 13:09 | PTOTSP ---
Dysphagia Evaluation
Pt presents with at most a mildly impaired oropharyngeal swallow characterized by prolonged mastication of regular solid w/ oral residue and cough x1 w/ pills w/ straw sips of thin liquid. Guarded bolus acceptance with poor appetite.
Aspiration risk is increased 2/2 AMS, increased lethargy, O2 needs, abnormal CT of chest, and multiple comorbidities (RA, large hiatal hernia, recent PNA 2/2 COVID).
Recommend:
1. Regular solids (IDDSI 7), Thin liquids (IDDSI 0)
2. Meds as tolerated, consider whole vs. crushed in puree
3. Slow rate, small bites, single sips, chew well
4. Aspiration and reflux precautions
5. SPECIAL EDUCATION COORDINATOR service to follow up at the acute care level, assess diet tolerance, and provide dysphagia tx PRN
[2023-09-28] MEDS: MAGNESIUM SULFATE 50 IV (16:36)
[2023-09-28 16:54] LABS: Glucose - Point of Care 112 mg/dl (70-99)
--- NOTE | 2023-09-28 17:50 | W.PN.PUL3 ---
Today's Communication / Plan
-
O2
Atb
CXR
Asp precs
CPT
Assessment
-
83-year-old female with history of rheumatoid arthritis on chronic methotrexate therapy, recently started on Remicade July 2023, COVID infection early August 2023, with general malaise, vertigo, lightheadedness, anorexia since initiation of
Ozempic early July. Admitted 09/26/2023 with electrolyte abnormalities, dehydration. Found to be hypoxic, 84% with normal chest x-ray. CT chest was obtained. We are asked to comment on her CT findings
Acute hypoxic respiratory insufficiency, 84%
Admitted 09/26/2023
Bilateral pulmonary infiltrates per CT imaging
Groundglass, areas of consolidation, small pleural effusions
Mild elevated lactate on admission, resolved
Metabolic acidemia per ABG
History of positive COVID
August 2023
3 weeks prior with cough per family
Positive COVID February 2022
Gait disturbance, vertigo
Recent fall July 2024
Conditions present prior to admission
Rheumatoid arthritis
Methotrexate since 2021
Remicade since July 2023
History of DVT x 2
On chronic anticoagulation. Eliquis
Coumadin in the past
Last episode age 40
History of uterine cancer
Hysterectomy
History of recurrent UTIs, followed by urology
Hiatal hernia/gastritis
Clw-hvqjyxq-hfbqctpxk diabetes
25 pound weight loss over the last 6 months
Plan/recommendations
Patient with extremely complex history.
History obtained by Dr Beltre from multiple family members at bedside and reviewing outpatient records, hospital records
Salient features include slow decline in health over the last 3 months, 25 pound weight loss, poor appetite, vertigo, history of falls, gait disturbance
Patient developed a cough about 3 weeks ago
Although denies shortness of breath, family member states she was visibly short of breath with simple activity
Remicade started July 2023
Ozempic started July 2023
Has been on methotrexate since 2021 per records
Chest exam with crackles bilaterally poor air movement
Disagree with chest x-ray reading 09/26/2023, has mild interstitial changes which appear to be peripheral predominant, especially so when compared to 09/23/2023
Differential is broad
Recent Covid illness noted
Aspiration pneumonitis, community-acquired infection, opportunistic infection are possibilities given chronic immunosuppression
Drug-induced pneumonitis (Remicade, methotrexate less likely given chronic use)
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
Rheumatoid arthritis related interstitial disease
ABG 09-27 on 4L: 7.43/27/76/17.9/97%
Continue O2 protocol
Not on home O2
Currently on 5L, POx 93%
Given that her chest x-ray does appear to be slightly progressive from 09/23 to 09/26/2023, suspect there may be an acute component in the setting of subacute symptoms
There may be some mild peripheral predominant interstitial changes on her chest x-ray 02/12/2023 (Subtle)
No significant interstitial changes at the lung bases on abdominal imaging February 2022
Agree with empiric antibiotics, despite negative procalcitonin
Can discontinue in the short-term if needed
Unfortunately, may have to start empiric steroids given the difficulty differentiate between rheumatoid arthritis with ILD (less likely given acuity) and COVID pneumonitis.
Reports mild improvement in dyspnea and no change in mild cough
Continue observing off IV CS for now
CXR PA/lat in AM 09-29
Sputum culture not collected yet, ordered 09-27, collection jar available at bedside
Check Legionella antigen, streptococcal antigen, not collected yet, d/w RN
IS encouraged, showed correct technique
Added acapella
Aspiration precautions, head of bed elevated
Speech eval 09-28: aspiration risk increased, rec reg solids, thin liquids
Holding methotrexate
Less likely CHF (nl ECHO)
DNR status
D/w and Mr Benjamin and their daughter at bedside
Subjective Data
-
Date of Service:
Date of Service: September 28, 2023
Chief Complaint: Pulmonary Follow Up
Subjective:
No change in mild intermittent cough
Mild improvement in dyspnea
Passed sputum sample in a foam cup, could not be sent for cx
Sputum jar collection at bedside
Accompanied by and daughter
Review of Systems
General: Fever (n), Sweats (n), Chills (n) and Satisfactory Appetite (n)
HEENT: Epistaxis (n) and Dysphagia (n)
Cardiopulmonary: Dyspnea, Cough, Wheezing (n) and Hemoptysis (n)
GI: Abdominal Pain (n), Nausea (n) and Vomiting (n)
Neuro: Weakness
Objective Data
Data Reviewed
Vital Signs / I&O / Oxygen:
Vital Signs
Temp Pulse Resp BP Pulse Ox
98.1 F 101 20 109/80 93
09/28/23 15:00 09/28/23 16:52 09/28/23 16:52 09/28/23 15:00 09/28/23 16:52
Intake and Output
09/27/23 09/28/23 09/29/23
06:59 06:59 06:59
Intake Total 1250 / 1250 600 / 600
Output Total 200 / 200
Balance 1050 / 1050 600 / 600
SaO2 93
Nasal Cannula flow liters per 5
minute
Physical Exam
General: Comfortable
HEENT: Normocephalic, Moist Mucous Membranes and Thrush (n)
Cardiovascular: Regular Rhythm, Murmur, JVD (n), Peripheral Edema (n) and Calf Tenderness (n)
Respiratory: Rhonchi, Accessory Resp Muscle Use (mild) and Stridor (n)
GI: Soft, Non Distended and Non Tender
Neurology: Awake, AO x 3 and No Motor Deficits
Skin: Dry
Labs/Micro/Reports
Lab Data
09/28/23 06:02
09/28/23 06:02
Microbiology
09/27/23 00:20 Feces/Stool Salmonella/Shigella Culture - Preliminary
Culture in Progress
09/27/23 00:20 Feces/Stool Campylobacter Culture - Preliminary
Culture in Progress
09/26/23 22:11 Blood/Venous Blood Culture - Preliminary
No Growth in 24 hours- Final report to follow
09/26/23 21:22 Blood/Venous Blood Culture - Preliminary
No Growth in 24 hours- Final report to follow
09/26/23 21:22 Nasal Swab Influenza Types A & B (SAROJ) - Final
Negative for Influenza A & B, NAAT
Negative results must be combined with clinical observations
and patient history.
Nucleic Acid Amplification test (NAAT)performed on the
[employer] platform.
[2023-09-28] MEDS: LIPITOR 10 MG PO (21:04)
[2023-09-28 21:27] LABS: Glucose - Point of Care 142 mg/dl (70-99)
[2023-09-29 03:14] VITALS: BP 124/84
[2023-09-29 03:35] LABS: Glucose - Point of Care 136 mg/dl (70-99)
[2023-09-29] MEDS: NORMOSOL-R 1000 IV (03:38)
[2023-09-29] MEDS: DUONEB 3 ML INH (03:55)
--- NOTE | 2023-09-29 04:14 | W.PN.UPDATE ---
Update Note
Progress Note Update
pt c/o a lttle more sob this am. o2 increased from 4-->5 L
Resp therapist gave breathing treatment-noted increased rales.
Will check proBNP, hold fluids for now
--- NOTE | 2023-09-29 04:15 | PTCARENOTE ---
pt c/o feeling like she was going to faint and SOB, pts VSS. pt received her PRN duoneb d/t being SOB. pt has rales upon assessment to which respiratory therapist also heard on assessment. pts oxygen now on 6 L NC satting 95%. MARTÍN Frazier
notified and IVFs put on hold. pt resting comfortably in bed. call velazquez within reach.
[2023-09-29] MEDS: ZOSYN 50 IV ×4 (05:39→23:20)
[2023-09-29 06:00] VITALS: BMI 29.5
[2023-09-29 07:00] VITALS: BP 106/67
[2023-09-29 07:15] LABS: % Basophils 0.3 % (0-2); % Eosinophils 0.4 % (0-6); % Immature Granulocytes 0.6 % (0-0.5); % Lymphocytes 17.4 % (20.5-51.1); % Monocytes 7.4 % (1.7-9.3); % Neutrophils 73.9 % (42.2-75.2); Absolute Immature Granulocytes 0.1 10^3/uL (0-0.05); Absolute Lymphocytes 1.6 10^3/uL (1.2-3.4); Absolute Monocytes 0.7 10^3/uL (0.1-0.6); Absolute Neutrophils 6.8 10^3/uL (1.4-6.5); Hemoglobin 11.8 g/dL (12.0-16.0); Mean Corp Hgb Conc. 36.9 g/dL (33.0-37.0); Mean Corpuscular Hgb 33.7 pg (27.0-31.0); Mean Corpuscular Volume 91.4 fL (81.0-99.0); Mean Platelet Volume 9.3 fL (7.4-10.4); Nucleated Red Blood Cells % 0 %; Platelet Count 257 10^3/uL (130-400); Red Cell Dist. Width 14.2 % (11.5-14.5); White Blood Cell Count 9.3 10^3/uL (4.8-10.8)
[2023-09-29 07:37] LABS: NT-proBNP 8900 pg/ml
[2023-09-29 07:59] LABS: Blood Urea Nitrogen 11 mg/dl (7-17); Calcium 7.1 mg/dl (8.4-10.2); Carbon Dioxide 19 mmol/L (22-30); Chloride 110 mmol/L (98-107); Estimated Creatinine Clearance 56 ml/min; Glucose 125 mg/dl (70-99); Potassium 3.5 mmol/L (3.5-5.1); Sodium 134 mmol/L (135-145); eGFR > 60.00
[2023-09-29 08:08] LABS: Glucose - Point of Care 122 mg/dl (70-99)
[2023-09-29] MEDS: ELIQUIS 2.5 MG PO ×2 (08:31→19:59)
[2023-09-29] MEDS: PROTONIX 40 MG PO (08:32)
[2023-09-29] MEDS: VITAMIN D3 (cholecalciferol) 50 MCG PO (08:32)
[2023-09-29] MEDS: FOLVITE 1 MG PO ×2 (08:32→19:59)
[2023-09-29] MEDS: HIPREX 1 GRAM PO ×2 (08:32→19:59)
[2023-09-29] MEDS: DECADRON 4 MG IV ×3 (08:33→23:20)
[2023-09-29] MEDS: TOPROL XL 25 MG PO (08:33)
[2023-09-29] MEDS: LASIX 20 MG IV (08:33)
[2023-09-29] MEDS: NOVOLOG FLEXPEN-LOW RESISTANCE SC ×3 (09:06→17:04)
[2023-09-29] MEDS: ZESTRIL PO (09:06)
--- NOTE | 2023-09-29 10:35 | W.PN.HOSP.TC ---
Addendum entered and electronically signed by Aidn Thakur MD 09/29/23 17:08:
echo 08/17 with normal EF; hold off on new echo
Original Note:
Today's Communication/Plan
-
Monitor vital signs and see plan
Responded to IV Lasix
Check echo tomorrow
Start Decadron
Chest x-ray pending
Change nebs to Xopenex and ipratropium
Wean oxygen as tolerated
Assessment / Plan
Assessment / Plan
Presentation with generalized fatigue, recurrent nausea and vomiting, oral intake.
Toxic metabolic encephalopathy likely multifactorial due to hypoxia, dehydration.
Acute hypoxic respiratory failure
Bilateral infiltrates, with differential: Pneumonia in immunocompromised patient, versus noninfectious including vasculitis, post-COVID lung less likely pulmonary edema.
Elevated anion gap metabolic acidosis
Severe hypokalemia.
Recent COVID-19 infection.
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
Essential hypertension
Diabetes mellitus type 2.
GERD/hiatal hernia
History of UTI with E. coli.
Chronic DVT on Eliquis
Plan:
Low oral intake with weight loss, failure to thrive
Suspect possibly Ozempic, also could be with contribution of hypoxia prior to presentation.
Hold Ozempic
dc fluids as appears now volume overloaded; responded to low dose lasix; monitor volume status. BNP 8900. Check echo tomorrow. Currently on 6 L. Wean oxygen as tolerated. Given worsening symptoms also started on Decadron.
Acute hypoxic respiratory failure
Chest x-ray with no acute findings.
CT scan without contrast with diffuse bilateral infiltrates.
Differential as above.
Speech and swallow consultation.
Procalcitonin not significant however given symptoms we will treat with antibiotics for now
Vasculitis serology/JOLENE level
Pulmonology following, low threshold for steroids
Hold methotrexate/Remicade.
cw zosyn
Follow blood cultures
Type 2 diabetes
hemoglobin A1c 6.1
Basal bolus protocol
Stop Ozempic given possible side effects.
Recent COVID,
Currently on 6l Nasal cannula flow.
Encourage use of incentive spirometer for atelectasis
Benign HTN
continue metoprolol, hold lisinopril
recurrent UTI
On Hiprex
Hx DVT
Continue Eliquis.
Code Status:DNR
General: Comfortable and Conversant
HEENT: NormoCephalic, Anicteric, Oxygen (Nasal Cannula) and Other (Dry mucous membrane)
Respiratory: Rales (Bilateral bases) and Non Labored Respirations
Cardiac: S1/S2 and Regular Rhythm
GI: Soft, Non Tender and Non Distended
Musculoskeletal: No Clubbing, No Cyanosis and No Edema
Skin: Warm and Dry
Neuro: Awake, Alert, Oriented and Nonfocal/grossly intact
I spent a total of 53 minutes with the patient or on the floor. More than 50% of this time involved counseling and coordination of care.
Anticipated Discharge: > 48 hours
Subjective/Interval History
-
Date of Service: September 29, 2023
had sob overnight and now on 6L
Objective Data
-
Labs:
Laboratory Results
09/29/23
06:50
WBC 9.3
Hgb 11.8 L
Hct 32.0 L
Plt Count 257
Sodium 134 L
Potassium 3.5
Chloride 110 H
Carbon Dioxide 19 L
BUN 11
Creatinine 0.5 L
Glucose 125 H
Calcium 7.1 L
Vital Signs:
Vital Signs
Temp Pulse Resp BP Pulse Ox
97.3 F 110 22 106/67 96
09/29/23 07:00 09/29/23 08:33 09/29/23 07:00 09/29/23 09:06 09/29/23 07:00
I&O
09/28/23 09/29/23 09/30/23
06:59 06:59 06:59
Intake Total 600 / 600 820 / 820
Balance 600 / 600 820 / 820
[2023-09-29 11:00] VITALS: BP 112/79
[2023-09-29 12:29] LABS: Glucose - Point of Care 134 mg/dl (70-99)
[2023-09-29] MEDS: ATROVENT NEBULES 0.5 MG INH ×2 (14:31→20:23)
[2023-09-29] MEDS: XOPENEX 1.25 MG INHALANT SOLUTION INH ×2 (14:31→20:23)
[2023-09-29 15:00] VITALS: BP 93/61
--- NOTE | 2023-09-29 15:09 | W.PN.PUL3 ---
Today's Communication / Plan
-
O2
Atb
CPT
BD
Assessment
-
83-year-old female with history of rheumatoid arthritis on chronic methotrexate therapy, recently started on Remicade July 2023, COVID infection early August 2023, with general malaise, vertigo, lightheadedness, anorexia since initiation of
Ozempic early July. Admitted 09/26/2023 with electrolyte abnormalities, dehydration. Found to be hypoxic, 84% with normal chest x-ray. CT chest was obtained. We are asked to comment on her CT findings
Acute hypoxic respiratory insufficiency, 84%
Admitted 09/26/2023
Bilateral pulmonary infiltrates per CT imaging
Groundglass, areas of consolidation, small pleural effusions
Mild elevated lactate on admission, resolved
Metabolic acidemia per ABG
History of positive COVID
August 2023
3 weeks prior with cough per family
Positive COVID February 2022
Gait disturbance, vertigo
Recent fall July 2024
Conditions present prior to admission
Rheumatoid arthritis
Methotrexate since 2021
Remicade since July 2023
History of DVT x 2
On chronic anticoagulation. Eliquis
Coumadin in the past
Last episode age 40
History of uterine cancer
Hysterectomy
History of recurrent UTIs, followed by urology
Hiatal hernia/gastritis
Nop-fiwfefw-rxoimejrv diabetes
25 pound weight loss over the last 6 months
Plan/recommendations
Patient with extremely complex history.
History obtained by Dr Beltre from multiple family members at bedside and reviewing outpatient records, hospital records
Salient features include slow decline in health over the last 3 months, 25 pound weight loss, poor appetite, vertigo, history of falls, gait disturbance
Patient developed a cough about 3 weeks ago
Although denies shortness of breath, family member stated she was visibly short of breath with simple activity
Remicade started July 2023
Ozempic started July 2023
Has been on methotrexate since 2021 per records
Chest exam with crackles bilaterally poor air movement
Chest x-ray reading 09/26/2023, has mild interstitial changes which appear to be peripheral predominant, especially so when compared to 09/23/2023
CXR 09-29 with underpenetration but overall appears worse as c/w 09-26 regarding infitrates
However, clinically appears mildly improved, patient states her dyspnea and cough are improving
Sputum production decreasing, passed sample for cx today but volume was too small for processing
Differential is broad
Recent Covid illness noted
Aspiration pneumonitis, community-acquired infection, opportunistic infection are possibilities given chronic immunosuppression
Drug-induced pneumonitis (Remicade, methotrexate less likely given chronic use)
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
Rheumatoid arthritis related interstitial disease
ABG 09-27 on 4L: 7.43/27/76/17.9/97%
Continue O2 protocol
Not on home O2
Currently on 5L plus neb treatment, POx 99%
Continue levalb/iprat nebs tid and prn
Given that her chest x-ray does appear to be slightly progressive from 09/23 to 09/26/2023, suspect there may be an acute component in the setting of subacute symptoms
There may be some mild peripheral predominant interstitial changes on her chest x-ray 02/12/2023 (Subtle)
No significant interstitial changes at the lung bases on abdominal imaging February 2022
Continue with empiric antibiotics, despite negative procalcitonin
Zosyn since 09-27
Monitor closely for potential use of empiric steroids given the difficulty differentiate between rheumatoid arthritis with ILD (less likely given acuity) and COVID pneumonitis.
Reports mild improvement in dyspnea and mild cough as of 09-29
Continue observing off IV CS for now
Check Legionella antigen, streptococcal antigen, not collected yet, d/w RN 09-28, patient had incontinence and could not provide sample
IS encouraged, showed correct technique
Added acapella, continue
Aspiration precautions, head of bed elevated
Speech eval 09-28: aspiration risk increased, rec reg solids, thin liquids
Holding methotrexate
Less likely CHF (nl ECHO)
DNR status
D/w Mrs and Mr Alexander at bedside
Subjective Data
-
Date of Service:
Date of Service: September 29, 2023
Chief Complaint: Pulmonary Follow Up
Subjective:
Intermittent worsening dyspnea overnight, improved on BDs
Feels better this morning
Sputum production decreasing, pass sample for cx but volume too scanty for analysis
Review of Systems
General: Fever (n), Sweats (n), Chills and Satisfactory Appetite
HEENT: Epistaxis and Dysphagia (n)
Cardiopulmonary: Dyspnea, Cough, Sputum Production, Wheezing (n), Chest Pain (n) and Edema (n)
GI: Abdominal Pain (n), Nausea (n) and Vomiting (n)
Neuro: Weakness
Objective Data
Data Reviewed
Vital Signs / I&O / Oxygen:
Vital Signs
Temp Pulse Resp BP Pulse Ox
97.3 F 111 22 112/79 98
09/29/23 11:00 09/29/23 14:35 09/29/23 14:35 09/29/23 11:00 09/29/23 14:35
Intake and Output
09/28/23 09/29/23 09/30/23
06:59 06:59 06:59
Intake Total 600 / 600 820 / 820
Balance 600 / 600 820 / 820
SaO2 98
Nasal Cannula flow liters per 5
minute
Physical Exam
General: Comfortable
HEENT: Normocephalic, Moist Mucous Membranes and Thrush (n)
Cardiovascular: Regular Rhythm, Murmur, JVD (n), Peripheral Edema (n) and Calf Tenderness (n)
Respiratory: Rhonchi, Accessory Resp Muscle Use (mild) and Stridor (n)
GI: Soft, Non Distended, Non Tender and Normal Bowel Sounds
Neurology: Awake, AO x 3 and No Motor Deficits
Skin: Dry
Labs/Micro/Reports
Lab Data
09/29/23 06:50
09/29/23 06:50
Microbiology
09/27/23 00:20 Feces/Stool Salmonella/Shigella Culture - Final
No Salmonella, Shigella, Aeromonas or Plesiomonas species
isolated.
09/27/23 00:20 Feces/Stool Campylobacter Culture - Final
No Campylobacter species isolated.
09/26/23 22:11 Blood/Venous Blood Culture - Preliminary
No Growth in 48 hours- Final report to follow
09/26/23 21:22 Blood/Venous Blood Culture - Preliminary
No Growth in 48 hours- Final report to follow
09/26/23 21:22 Nasal Swab Influenza Types A & B (SAROJ) - Final
Negative for Influenza A & B, NAAT
Negative results must be combined with clinical observations
and patient history.
Nucleic Acid Amplification test (NAAT)performed on the
[employer] platform.
[2023-09-29 16:46] LABS: Glucose - Point of Care 146 mg/dl (70-99)
[2023-09-29 19:32] VITALS: BP 102/67; BP 105/67; PULSE 97; PULSE 98
[2023-09-29 21:19] LABS: Glucose - Point of Care 166 mg/dl (70-99)
[2023-09-29] MEDS: LIPITOR 10 MG PO (21:44)
[2023-09-29 23:35] VITALS: BP 94/57
[2023-09-30] VITALS (10 sets, daily range): BP systolic 94–115; BP diastolic 56–75; PULSE 94–112; O2SAT 95; BMI 29.3
[2023-09-30 04:08] LABS: Angiotensin-1-converting Enzym <10 U/L (16-85)
[2023-09-30] MEDS: ZOSYN 50 IV ×4 (05:33→23:39)
[2023-09-30 06:38] LABS: % Basophils 0.1 % (0-2); % Immature Granulocytes 0.5 % (0-0.5); % Lymphocytes 12.3 % (20.5-51.1); % Monocytes 3.7 % (1.7-9.3); % Neutrophils 83.4 % (42.2-75.2); Absolute Monocytes 0.3 10^3/uL (0.1-0.6); Absolute Neutrophils 6.7 10^3/uL (1.4-6.5); Hematocrit 33.3 % (37.0-47.0); Hemoglobin 11.7 g/dL (12.0-16.0); Mean Corp Hgb Conc. 35.1 g/dL (33.0-37.0); Mean Corpuscular Hgb 33.8 pg (27.0-31.0); Mean Corpuscular Volume 96.2 fL (81.0-99.0); Mean Platelet Volume 9.6 fL (7.4-10.4); Nucleated Red Blood Cells % 0 %; Platelet Count 269 10^3/uL (130-400); Red Blood Cell Count 3.46 10^6/uL (4.20-5.40); Red Cell Dist. Width 13.8 % (11.5-14.5)
[2023-09-30 07:09] LABS: Blood Urea Nitrogen 10 mg/dl (7-17); Calcium 7.6 mg/dl (8.4-10.2); Carbon Dioxide 25 mmol/L (22-30); Chloride 102 mmol/L (98-107); Estimated Creatinine Clearance 56 ml/min; Glucose 148 mg/dl (70-99); Potassium 3.3 mmol/L (3.5-5.1); Sodium 136 mmol/L (135-145); eGFR > 60.00
[2023-09-30] MEDS: ATROVENT NEBULES 0.5 MG INH ×3 (07:50→19:17)
[2023-09-30] MEDS: XOPENEX 1.25 MG INHALANT SOLUTION INH ×3 (07:51→19:18)
[2023-09-30 08:04] LABS: Glucose - Point of Care 149 mg/dl (70-99)
[2023-09-30] MEDS: TOPROL XL 25 MG PO (08:15)
[2023-09-30] MEDS: PROTONIX 40 MG PO (08:15)
[2023-09-30] MEDS: DECADRON 4 MG IV ×3 (08:15→23:39)
[2023-09-30] MEDS: NOVOLOG FLEXPEN-LOW RESISTANCE SC ×2 (08:15→12:46)
[2023-09-30] MEDS: HIPREX 1 GRAM PO ×2 (08:15→20:16)
[2023-09-30] MEDS: ELIQUIS 2.5 MG PO ×2 (08:15→20:16)
[2023-09-30] MEDS: FOLVITE 1 MG PO ×2 (08:15→20:16)
[2023-09-30] MEDS: VITAMIN D3 (cholecalciferol) 50 MCG PO (08:15)
--- NOTE | 2023-09-30 09:22 | CM ---
Addendum entered by BLAS Olivera 09/30/23 09:30:
Placed a call to Sherita in admissions at [facility] and she stated that she will have to review chart prior to rendering a determination. Provided CM contact information. Will await return call.
Original Note:
Reviewed chart and referral in [employer]. [place] stated can maybe take pending a little more information. Placed a call to [facility] and left message for Jaimee in admissions. Provided CM contact information. Will await return call.
Plan: Case management will continue to follow and assist with discharge planning. Patient will need to transfer to a SNF. Daughter chose [facility] and [facility].
--- NOTE | 2023-09-30 10:51 | W.PN.PUL3 ---
Today's Communication / Plan
-
O2
BDs
Atb
CS
Assessment
-
83-year-old female with history of rheumatoid arthritis on chronic methotrexate therapy, recently started on Remicade July 2023, COVID infection early August 2023, with general malaise, vertigo, lightheadedness, anorexia since initiation of
Ozempic early July. Admitted 09/26/2023 with electrolyte abnormalities, dehydration. Found to be hypoxic, 84% with normal chest x-ray. CT chest was obtained. We are asked to comment on her CT findings
Acute hypoxic respiratory insufficiency, 84%
Admitted 09/26/2023
Bilateral pulmonary infiltrates per CT imaging
Groundglass, areas of consolidation, small pleural effusions
Mild elevated lactate on admission, resolved
Metabolic acidemia per ABG
History of positive COVID
August 2023
3 weeks prior with cough per family
Positive COVID February 2022
Gait disturbance, vertigo
Recent fall July 2024
Conditions present prior to admission
Rheumatoid arthritis
Methotrexate since 2021
Remicade since July 2023
History of DVT x 2
On chronic anticoagulation. Eliquis
Coumadin in the past
Last episode age 40
History of uterine cancer
Hysterectomy
History of recurrent UTIs, followed by urology
Hiatal hernia/gastritis
Njf-dreveyz-ecpurueqd diabetes
25 pound weight loss over the last 6 months
Plan/recommendations
Patient with extremely complex history.
History obtained by Dr Beltre from multiple family members at bedside and reviewing outpatient records, hospital records
Salient features include slow decline in health over the last 3 months, 25 pound weight loss, poor appetite, vertigo, history of falls, gait disturbance
Patient developed a cough about 3 weeks [employer]
Although denies shortness of breath, family member stated she was visibly short of breath with simple activity
Remicade started July 2023
Ozempic started July 2023
Has been on methotrexate since 2021 per records
Chest exam with crackles bilaterally poor air movement
Chest x-ray reading 09/26/2023, has mild interstitial changes which appear to be peripheral predominant, especially so when compared to 09/23/2023
CXR 09-29 with underpenetration but overall appears worse as c/w 09-26 regarding infitrates
However, clinically appears mildly improved, patient states her dyspnea and cough are improving (coincidentally started on IV CS 09-29 AM)
Sputum production decreasing, passed sample for cx 09-29 but volume was too small for processing
Differential is broad
Recent Covid illness noted
Aspiration pneumonitis, community-acquired infection, opportunistic infection are possibilities given chronic immunosuppression
Drug-induced pneumonitis (Remicade, methotrexate less likely given chronic use)
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
Rheumatoid arthritis related interstitial disease
ABG 09-27 on 4L: 7.43/27/76/17.9/97%
Continue O2 protocol
Not on home O2
Currently O2 requirement declining from 5L to 3L, POx 98% at rest
Continue levalb/iprat nebs tid and prn
Given that her chest x-ray does appear to be slightly progressive from 09/23 to 09/26/2023, suspect there may be an acute component in the setting of subacute symptoms
There may be some mild peripheral predominant interstitial changes on her chest x-ray 02/12/2023 (Subtle)
No significant interstitial changes at the lung bases on abdominal imaging February 2022
Continue with empiric antibiotics, despite negative procalcitonin
Zosyn since 09-27
Difficulty differentiating between rheumatoid arthritis with ILD (less likely given acuity) and COVID pneumonitis.
Started dexam 4 mg IV q6h on 09-29 AM, continue
Coincidentally reports mild improvement in dyspnea and mild cough since day of initiation of CS
Check Legionella antigen, streptococcal antigen, not collected yet, d/w RN 09-28, patient had incontinence and could not provide sample
IS encouraged, showed correct technique
Added acapella, continue
Aspiration precautions, head of bed elevated
Speech eval 09-28: aspiration risk increased, rec reg solids, thin liquids
Holding methotrexate
Less likely CHF (nl ECHO)
DNR status
D/w and Mr Alexander at bedside on a daily basis
Subjective Data
-
Date of Service:
Date of Service: September 30, 2023
Chief Complaint: Pulmonary Follow Up
Subjective:
No major events reported
Started on systemic CS 09-29
Objective Data
Data Reviewed
Vital Signs / I&O / Oxygen:
Vital Signs
Temp Pulse Resp BP Pulse Ox
97.5 F 89 20 105/65 98
09/30/23 07:00 09/30/23 08:15 09/30/23 07:54 09/30/23 08:15 09/30/23 07:54
Intake and Output
09/29/23 09/30/23 10/01/23
06:59 06:59 06:59
Intake Total 820 / 820 720 / 720
Balance 820 / 820 720 / 720
SaO2 98
Nasal Cannula flow liters per 4
minute
Physical Exam
General: Comfortable
HEENT: Normocephalic, Moist Mucous Membranes and Thrush (n)
Cardiovascular: Regular Rhythm, Murmur, JVD (n), Peripheral Edema (n) and Calf Tenderness (n)
Respiratory: Rhonchi, Accessory Resp Muscle Use (mild) and Stridor (n)
GI: Soft, Non Distended, Non Tender and Normal Bowel Sounds
Neurology: Awake, AO x 3 and No Motor Deficits
Skin: Dry
Labs/Micro/Reports
Lab Data
09/30/23 06:18
09/30/23 06:18
Microbiology
09/27/23 00:20 Feces/Stool Salmonella/Shigella Culture - Final
No Salmonella, Shigella, Aeromonas or Plesiomonas species
isolated.
09/27/23 00:20 Feces/Stool Campylobacter Culture - Final
No Campylobacter species isolated.
09/27/23 00:20 Feces/Stool Shiga Toxin Test - Final
No E. coli Shiga Toxin 1 or 2 detected.
09/26/23 22:11 Blood/Venous Blood Culture - Preliminary
No Growth in 72 hours- Final report to follow
09/26/23 21:22 Blood/Venous Blood Culture - Preliminary
No Growth in 72 hours- Final report to follow
--- NOTE | 2023-09-30 11:36 | CM ---
Received a return call from [facility] in admissions at [facility] who stated that she can take patient pending that she does not have to take the Ozempic or the Prolia during the time that she is at facility and if so, she would self provide.
TT attending and he clarified that she is off of both medications.
Returned call to [facility] in admissions and left a message that patient is off of both medications. Requested return call back to confirm acceptance.
Plan: Case management will continue to follow and assist with discharge planning. Patient/family hopeful for [facility]. No authorization would be needed for transfer.
[2023-09-30] MEDS: KCL 40 MEQ PO (11:45)
[2023-09-30 11:57] LABS: Glucose - Point of Care 136 mg/dl (70-99)
[2023-09-30] MEDS: TYLENOL 650 MG PO (13:11)
--- NOTE | 2023-09-30 13:59 | W.PN.HOSP.TC ---
Today's Communication/Plan
-
Echo
Videofluoroscopy
Assessment / Plan
Assessment / Plan
Generalized weakness
Dyspnea at rest
Acute hypoxic respiratory failure
Toxic metabolic encephalopathy likely multifactorial due to hypoxia, dehydration.
Elevated anion gap metabolic acidosis
Hypokalemia.
Recent COVID-19 infection.
Rheumatoid arthritis on immunosuppression with Remicade and methotrexate.
Essential hypertension
Diabetes mellitus type 2.
GERD/hiatal hernia
History of UTI with E. coli.
Chronic DVT on Eliquis
Plan:
# Generalized weakness
Low oral intake with 25 pound weight loss and poor appetite.
Suspect possibly Ozempic, also could be with contribution of hypoxia prior to presentation or chronic rheumatoid arthritis on immunosuppression
Ozempic on hold
# Dyspnea at rest/probability of CHF
pt c/o a worsening sob on 09/29/2023. o2 increased from 4-->5 L
proBNP 8900
IV fluids on hold as patient appears volume overloaded
Responded to low dose lasix 20 mg IV
Monitor volume status
Echo 08/02/23 report: Estimated ejection fraction is 55-60%.
�Aortic sclerosis without stenosis.
�Mitral annular calcification.� No significant mitral regurgitation detected
�Mild tricuspid regurgitation.
Plan for echo today
Currently on 4 L oxygen, wean oxygen as tolerated.
#Acute hypoxic respiratory failure
Today on 4L O2, spO2 at 97%
Chest x-ray report 09/29/23 : Marked widespread bilateral parenchymal opacification most likely with some progression in comparison to recent prior Chest CT. Most likely differential diagnostic possibilities would be pneumonia or acute pulmonary edema
CT scan without contrast with diffuse bilateral infiltrates.
Differential: rheumatoid arthritis with ILD, post-COVID lung, Vasculitides, drug-induced pneumonitis, pneumonia in immunocompromised patient, aspiration pneumonitis
JOLENE level < 10
MPO pending
Hold methotrexate/Remicade.
Continue empiric Zosyn
Continue dexamethasone 4 mg IV
Follow blood cultures
Legionella and streptococcal antigen pending
Encouraged the use of incentive spirometer, Acapella device
Video fluoroscopy to rule out aspiration pneumonitis.
# Toxic metabolic encephalopathy
Currently patient appears oriented to time place and location
Mental status at baseline
# Hypokalemia
Potassium 3.3 today
KCl per oral 40 mEq
#Type 2 diabetes
hemoglobin A1c 6.1
Basal bolus protocol
Stop Ozempic given possible side effects.
#Recent COVID,
Currently on 4 L nasal cannula flow.
Increased the use of incentive spirometer, Acapella device
#Benign HTN
continue metoprolol, hold lisinopril
#recurrent UTI
On Hiprex
#Hx DVT
Continue Eliquis.
Code Status:DNR
Anticipated Discharge: 24 - 48 hours
Subjective/Interval History
-
Date of Service: September 30, 2023
Patient reports her dyspnea has improved after starting corticosteroids. SpO2 at 95% on 4 L oxygen. reports having productive cough with very minimal amount of sputum but no fever / chest pain.
Patient is oriented to time place and person. No confusion, mental status at baseline. Reports having dizziness when she gets up from bed.
Objective Data
-
Labs:
Laboratory Results
09/30/23
06:18
WBC 8.0
Hgb 11.7 L
Hct 33.3 L
Plt Count 269
Sodium 136
Potassium 3.3 L
Chloride 102
Carbon Dioxide 25
BUN 10
Creatinine 0.6
Glucose 148 H
Calcium 7.6 L
Vital Signs:
Vital Signs
Temp Pulse Resp BP Pulse Ox
98.0 F 93 18 101/60 95
09/30/23 11:00 09/30/23 11:00 09/30/23 11:00 09/30/23 11:00 09/30/23 11:00
I&O
09/29/23 09/30/23 10/01/23
06:59 06:59 06:59
Intake Total 820 / 820 720 / 720
Balance 820 / 820 720 / 720
Review of Systems
-
History Source: Patient
All other systems: Reviewed and negative
Constitutional: Reports Weakness
Respiratory: Reports Trouble Breathing
Neuro: Reports Dizzy
Physical Exam
-
General: Well Developed and No Apparent Distress
HEENT: Normocephalic, Atraumatic and Moist Mucous Membranes
Respiratory: Wheezes (Mild wheezing at the bases bilaterally) and Decreased Breath Sounds
Cardiac: Regular Rhythm and S1/S2
GI: Soft, Nontender, Nondistended and Normal Bowel Sounds
Skin: Warm and Dry
Neuro: Awake, Alert, Oriented and AO x 3
Psych: Calm
--- NOTE | 2023-09-30 15:40 | W.PN.HOSP.TC ---
Today's Communication/Plan
-
Continue oxygen supplementation with attempt to wean off
Repeat echocardiogram
Gentle diuresis
IV corticosteroids
Empiric antibiotics
Follow vasculitis serology
Assessment / Plan
Assessment / Plan
Impression:
Presentation with generalized fatigue, recurrent nausea and vomiting, oral intake.
Toxic metabolic encephalopathy likely multifactorial due to hypoxia, dehydration.
Acute hypoxic respiratory failure with desaturations down to 84%
Bilateral infiltrates, with differential: Pneumonia in immunocompromised patient, versus noninfectious including vasculitis, post-COVID lung less likely pulmonary edema.
Elevated anion gap metabolic acidosis
Severe hypokalemia.
Recent COVID-19 infection.
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
Essential hypertension
Diabetes mellitus type 2.
GERD/hiatal hernia
History of UTI with E. coli.
Chronic DVT on Eliquis
Plan:
Low oral intake with weight loss, failure to thrive, clinically dehydrated with severe hypokalemia.
Suspect possibly Ozempic, also could be with contribution of hypoxia prior to presentation.
Hold Ozempic
IV hydration
Replete potassium.
Acute hypoxic respiratory failure
Chest x-ray with no acute findings.
CT scan without contrast with diffuse bilateral infiltrates.
Differential as above.
Speech and swallow consultation
VSE
Procalcitonin undetectable
Vasculitis serology pending.
JOLENE level within normal limits.
Noted elevated pro CHF BNP above baseline.
Repeat echocardiogram
Gentle diuresis, Lasix 20 mg IV will be provided on 09/30.
Initiated on corticosteroids: IV Decadron on 09/29
Hold methotrexate/Remicade.
Empiric antibiotics vancomycin and Zithromax
Follow blood cultures
Type 2 diabetes
Update hemoglobin 6.1
Basal bolus protocol
Stop Ozempic given possible side effects.
Anticipated Discharge: > 48 hours
Subjective/Interval History
-
Date of Service: September 30, 2023
Objective Data
-
Labs:
Laboratory Results
09/30/23
06:18
WBC 8.0
Hgb 11.7 L
Hct 33.3 L
Plt Count 269
Sodium 136
Potassium 3.3 L
Chloride 102
Carbon Dioxide 25
BUN 10
Creatinine 0.6
Glucose 148 H
Calcium 7.6 L
Vital Signs:
Vital Signs
Temp Pulse Resp BP Pulse Ox
98.0 F 87 20 101/60 95
09/30/23 11:00 09/30/23 14:27 09/30/23 14:27 09/30/23 11:00 09/30/23 14:27
I&O
09/29/23 09/30/23 10/01/23
06:59 06:59 06:59
Intake Total 820 / 820 720 / 720
Balance 820 / 820 720 / 720
Physical Exam
-
General: Well Developed and No Apparent Distress
HEENT: Normocephalic, Atraumatic and Moist Mucous Membranes
Respiratory: Clear to Auscultation
Cardiac: Regular Rhythm and S1/S2; Negative Murmur, Rub or Gallop
GI: Soft, Nontender, Nondistended and Normal Bowel Sounds; Negative Organomegaly
Rectal: Deferred by Provider
Musculoskeletal: No Clubbing, No Cyanosis and No Edema
Skin: Negative Rash
Neuro: Nonfocal/Grossly Intact
[2023-09-30] MEDS: LASIX 20 MG IV (16:10)
[2023-09-30 16:40] LABS: Glucose - Point of Care 203 mg/dl (70-99)
[2023-09-30] MEDS: NOVOLOG FLEXPEN-LOW RESISTANCE 2 UNITS SC (17:11)
[2023-09-30 17:42] LABS: Myeloperoxidase Antibody 0 AU/mL (0-19)
[2023-09-30] MEDS: LIPITOR 10 MG PO (21:23)
[2023-09-30 22:07] LABS: Glucose - Point of Care 163 mg/dl (70-99)
[2023-10-01 03:05] VITALS: BP 105/67
[2023-10-01 05:41] VITALS: BMI 30.7
[2023-10-01] MEDS: ZOSYN 50 IV ×4 (06:15→23:15)
[2023-10-01 07:12] VITALS: BP 95/58
--- NOTE | 2023-10-01 07:13 | W.PN.HOSP.TC ---
Addendum entered and electronically signed by Caleb Lemos MD 10/01/23 16:31:
Patient seen and examined
Discussed with cardiology
Discussed with resident
Impression:
Acute hypoxic respiratory failure
Diffuse bilateral infiltrates
New cardiomyopathy with now reduced EF of 25% (possibly stress/Takotsubo type).
Plan:
Given presentation with diffuse bilateral infiltrates initiated on empiric antibiotics for presumed pneumonia, systemic steroids for presumed vasculitis, post-COVID pneumonitis
Afebrile and cultures negative to date. Procalcitonin undetectable.
Vasculitis serology negative.
Complete antibiotic therapy 5 to 7-day course.
Continue systemic steroids with attempt to taper.
New diagnosis of cardiomyopathy with repeated echocardiogram LVEF of 25%, suspect Takotsubo type.
Will need ischemic evaluation plan tentatively for 10/02.
Cardiology input appreciated.
Initiated on IV diuresis.
Follow-up chest x-ray in response.
Original Note:
Today's Communication/Plan
-
.
Assessment / Plan
Assessment / Plan
Generalized weakness
Heart failure with reduced ejection fraction
Acute hypoxic respiratory failure
Toxic metabolic encephalopathy likely multifactorial due to hypoxia, dehydration.
Elevated anion gap metabolic acidosis
Hypokalemia.
Recent COVID-19 infection.
Rheumatoid arthritis on immunosuppression with Remicade and methotrexate.
Essential hypertension
Diabetes mellitus type 2.
GERD/hiatal hernia
History of UTI with E. coli.
Chronic DVT
Plan:
# Generalized weakness
Low oral intake with 25 pound weight loss and poor appetite.
Suspect possibly Ozempic, also could be with contribution of hypoxia prior to presentation or chronic rheumatoid arthritis on immunosuppression
Ozempic on hold
# Heart failure with reduced ejection fraction 25-30%
pt c/o a worsening sob on 09/29/2023. o2 increased from 4-->5 L
proBNP 8900
IV fluids on hold as patient appears volume overloaded
Responded to low dose lasix 20 mg IV
Monitor volume status
Echo on 09/30/2023 report: Severely reduced left ventricular systolic function.� Akinesis of all horvath
�except basal horvath.
�LV ejection fraction is 25-30% by visual assessment.
�Severe mitral annular calcification.
�Mild mitral stenosis without significant regurgitation.
�Moderate to severe tricuspid regurgitation.
Currently on 2L oxygen, wean oxygen as tolerated.
Continue Lasix, 40 mg, per oral, daily
Left heart catheterization tomorrow
#Acute hypoxic respiratory failure
Today on 2 L O2, spO2 at 96%
Chest x-ray report 09/29/23 : Marked widespread bilateral parenchymal opacification most likely with some progression in comparison to recent prior Chest CT. Most likely differential diagnostic possibilities would be pneumonia or acute pulmonary edema
CT scan without contrast with diffuse bilateral infiltrates.
Differential: rheumatoid arthritis with ILD, post-COVID lung, Vasculitides, drug-induced pneumonitis, pneumonia in immunocompromised patient, aspiration pneumonitis
JOLENE level < 10
MPO negative
Hold methotrexate/Remicade.
Continue empiric Zosyn, today day 5
Continue corticosteroids
Follow blood cultures
Legionella and streptococcal antigen pending
Encouraged the use of incentive spirometer, Acapella device
Video fluoroscopy report: No aspiration noted. Distal esophageal retention seen.
Speech eval 09/28/23 report: aspiration risk increased, rec reg solids, thin liquids
Aspiration precautions, head of bed elevation
# Toxic metabolic encephalopathy
Currently patient appears oriented to time place and location
Mental status at baseline
# Hypokalemia
Potassium 3.3 today
KCl per oral 40 mEq
#Type 2 diabetes
hemoglobin A1c 6.1
Basal bolus protocol
Stop Ozempic given possible side effects.
#Recent COVID,
Currently on 2 L nasal cannula flow.
Increased the use of incentive spirometer, Acapella device
#Benign HTN
continue metoprolol, hold lisinopril
#recurrent UTI
On Hiprex
#Hx DVT
Stop Eliquis
Start heparin
Code Status:DNR
Anticipated Discharge: 24 - 48 hours
Subjective/Interval History
-
Date of Service: October 01, 2023
Patient mentioned her breathing has improved since yesterday. No chest pain, fever, chills, leg pain, swelling of the feet.
Currently on 2 L oxygen
Objective Data
-
Labs:
Laboratory Results
10/01/23
06:56
WBC Pending
Hgb Pending
Hct Pending
Plt Count Pending
Sodium Pending
Potassium Pending
Chloride Pending
Carbon Dioxide Pending
BUN Pending
Creatinine Pending
Glucose Pending
Calcium Pending
Vital Signs:
Vital Signs
Temp Pulse Resp BP Pulse Ox
97.8 F 85 18 105/67 95
10/01/23 03:05 10/01/23 03:05 10/01/23 03:05 10/01/23 03:05 10/01/23 03:05
I&O
09/30/23 10/01/23 10/02/23
06:59 06:59 06:59
Intake Total 720 / 720 960 / 960
Balance 720 / 720 960 / 960
Review of Systems
-
All other systems: Reviewed and negative (As per history)
Physical Exam
-
General: No Apparent Distress
Respiratory: Wheezes
Cardiac: Regular Rhythm, S1/S2 and Murmur
GI: Soft, Nontender, Nondistended and Normal Bowel Sounds
Musculoskeletal: No Clubbing, No Cyanosis and No Edema
Skin: Warm and Dry
Neuro: Awake, Alert, Oriented and AO x 3
Psych: Calm
[2023-10-01 07:21] LABS: % Basophils 0.1 % (0-2); % Immature Granulocytes 0.8 % (0-0.5); % Lymphocytes 10.6 % (20.5-51.1); % Monocytes 5.3 % (1.7-9.3); % Neutrophils 83.2 % (42.2-75.2); Absolute Immature Granulocytes 0.1 10^3/uL (0-0.05); Absolute Lymphocytes 0.9 10^3/uL (1.2-3.4); Absolute Monocytes 0.5 10^3/uL (0.1-0.6); Absolute Neutrophils 7.4 10^3/uL (1.4-6.5); Hematocrit 32.1 % (37.0-47.0); Hemoglobin 11.5 g/dL (12.0-16.0); Mean Corp Hgb Conc. 35.8 g/dL (33.0-37.0); Mean Corpuscular Hgb 33.9 pg (27.0-31.0); Mean Corpuscular Volume 94.7 fL (81.0-99.0); Mean Platelet Volume 9.6 fL (7.4-10.4); Nucleated Red Blood Cells % 0.2 %; Platelet Count 263 10^3/uL (130-400); Red Blood Cell Count 3.39 10^6/uL (4.20-5.40); Red Cell Dist. Width 14.2 % (11.5-14.5); White Blood Cell Count 8.9 10^3/uL (4.8-10.8)
[2023-10-01 07:46] LABS: Blood Urea Nitrogen 13 mg/dl (7-17); Calcium 7.3 mg/dl (8.4-10.2); Carbon Dioxide 29 mmol/L (22-30); Chloride 104 mmol/L (98-107); Estimated Creatinine Clearance 49 ml/min; Glucose 167 mg/dl (70-99); Potassium 3.3 mmol/L (3.5-5.1); Sodium 135 mmol/L (135-145); eGFR > 60.00
[2023-10-01 07:50] LABS: Glucose - Point of Care 166 mg/dl (70-99)
[2023-10-01] MEDS: ATROVENT NEBULES 0.5 MG INH ×3 (08:15→19:20)
[2023-10-01] MEDS: XOPENEX 1.25 MG INHALANT SOLUTION INH ×3 (08:16→19:20)
[2023-10-01] MEDS: PROTONIX 40 MG PO (08:27)
[2023-10-01] MEDS: VITAMIN D3 (cholecalciferol) 50 MCG PO (08:27)
[2023-10-01] MEDS: ELIQUIS 2.5 MG PO (08:27)
[2023-10-01] MEDS: FOLVITE 1 MG PO ×2 (08:27→21:05)
[2023-10-01] MEDS: HIPREX 1 GRAM PO ×2 (08:27→21:05)
[2023-10-01] MEDS: TOPROL XL PO (08:27)
[2023-10-01] MEDS: NOVOLOG FLEXPEN-LOW RESISTANCE 1 UNITS SC ×2 (08:28→17:22)
[2023-10-01] MEDS: DECADRON 4 MG IV (08:28)
--- NOTE | 2023-10-01 09:31 | CM ---
Spoke with Jaimee in admissions at [facility] who confirmed acceptance and stated to call her the day of/before discharge so that updates can be provided.
Plan: Case management will continue to follow and assist with discharge planning. Patient to transfer to [facility] upon medical clearance.
--- NOTE | 2023-10-01 10:47 | PTOTSP ---
VIDEOFLUOROSCOPIC SWALLOWING STUDY RESULTS:
Patient presents with oropharyngeal swallow function grossly WFL at this time. VSE indicated no aspiration or penetration with any consistencies trialed. No pharyngeal residue noted during examination. Esophageal sweep revealed contrast retention in
esophagus. Consider GI consult. Patient with known hiatal hernia. Patient remains at risk for aspiration given respiratory (currently on NC) and pulmonary (current pneumonia) status. Recommend Regular texture diet and thin liquids. Medications whole
with liquid as tolerated. Aspiration precautions including: upright positioning; small single sips and bites; slow rate of intake; remain upright 30 minutes after eating/drinking; do note eat when SOB or coughing; alternate textures; GERD
precautions. Speech therapy to follow briefly at the acute care level to provide education regarding aspiration/GERD precautions.
RECOMMEND:
1) Regular texture diet and thin liquids
2) Medications whole with liquid as tolerated
3) Aspiration precautions including: upright positioning; small single sips and bites; slow rate of intake; remain upright 30 minutes after eating/drinking; do note eat when SOB or coughing; alternate textures; GERD precautions
4) Speech therapy to follow briefly at the acute care level to provide education regarding aspiration/GERD precautions
[2023-10-01] MEDS: KCL 40 MEQ PO (10:52)
[2023-10-01] MEDS: LASIX 40 MG IV (10:52)
[2023-10-01 10:54] VITALS: BP 117/71
[2023-10-01 11:00] VITALS: BP 108/65; BP 110/70; BP 117/71; PULSE 103; PULSE 82; PULSE 94
--- NOTE | 2023-10-01 11:21 | CON.CAR ---
Addendum entered and electronically signed by Uday Espinosa MD 10/01/23 12:32:
83 yo female with PMH HTN, DM, DVT on eliquis admitted with weakness. Being treated for PNA. Echo was done and showed EF 25%, with pattern that could be consistent with Takutsubo. She denies CP, SOB, edema. Exam with RRR, no murmurs, no edema.
Echo: EF 25-30%, akinesis of mid to apical segments.
New cardiomyopathy. May be Takutsubo. Continue Toprol XL and lisinopril. Cath tomorrow to assess for multivessel CAD. Prep for dye allergy. Will ramp up GDMT based on cath results.
Original Note:
Consultation
Consultation Request
Date/Time Consultation Requested: 10/01/23 10:20
Date/Time Consultation Performed: 10/01/23 11:20
Requesting Provider: Dr. Lemos
Performing Provider: MARTÍN Torres for Dr. Espinosa
Reason for Consultation: Abnormal echocardiogram
Medical History
-
Chief Complaint: Weakness
History of Present Illness:
Lora Alexander is an 80-year-old female (known to Dr. 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
09/26/2023 with a chief complaint of weakness. She endorsed associated fatigue and poor oral intake. She reports she started both Remicade and Ozempic approximately 6 weeks ago. She has had intermittent nausea and diarrhea. She was hypokalemic due
to volume depletion and GI loss on admission. She was found to have issues with hypoxia. She had bilateral infiltrates on her chest CT. An echocardiogram was ordered and she was found to have a decline in her LVEF compared to July,. She
reports no recent stressful events but did have COVID approximately 3 weeks ago. She states her family has been reporting that she has been breathing more heavily but she denies shortness of breath.
Past Medical History
Past Medical History: HTN and Hypercholesterolemia
Past Surgical History: Appendectomy, Cholecystectomy, Orthopedic and Tonsilectomy
Social History
Tobacco: Non-Smoker
Alcohol: None
Drug: None
Personal:
Living: With Family
Employment: Retired
Family History
Family History: Reviewed & Not Pertinent
Allergies / Home Medications
Allergy/AdvReac Type Severity Reaction Status Date / Time
Iodinated Contrast Media Allergy Anaphylaxis Verified 09/26/23 20:58
[IV Dye, Iodine Containing
Contrast ]
iodine Allergy Anaphylaxis Verified 09/26/23 20:58
metformin Allergy vomiting,di Verified 09/26/23 20:58
arrhea
metformin HCl Allergy vomiting,di Verified 09/26/23 20:58
[From Glucophage] arrhea
tetracycline Allergy stomach Verified 09/26/23 20:58
pain
Medication Instructions Recorded Confirmed Type
simvastatin 10 mg tablet 10 mg PO HS High cholesterol 02/12/12 09/26/23 History
biotin 5,000 mcg disintegrating 2,500 mcg PO HS Supplement 03/07/22 09/26/23 History
tablet
cholecalciferol (vitamin D3) 50 50 mcg PO DAILY Supplement 03/07/22 09/26/23 History
mcg (2,000 unit) chewable tablet
folic acid 1 mg tablet 1 mg PO BID Supplement 03/07/22 09/26/23 History
methotrexate sodium 2.5 mg tablet 20 mg PO TH@1700 Autoimmune 03/07/22 09/26/23 History
disorder
metoprolol succinate 25 mg 25 mg PO DAILY Blood pressure 03/07/22 09/26/23 History
tablet,extended release 24 hr
lisinopril 10 mg tablet 10 mg PO DAILY Blood pressure 03/08/22 09/26/23 History
apixaban 2.5 mg tablet (Eliquis) 2.5 mg PO BID Blood Clot 09/26/23 09/26/23 History
Prevention/Tx
cranberry extract 200 mg capsule 400 mg PO DAILY Supplement 09/26/23 09/26/23 History
(Ellura)
denosumab 60 mg/mL subcutaneous 60 mg SC [id number] osteoporosis 09/26/23 09/26/23 History
syringe (Prolia)
hydrocodone 7.5 mg-acetaminophen 1 tab PO TIDPRN PRN severe pains 09/26/23 09/26/23 History
325 mg tablet
methenamine hippurate 1 gram 1 g PO BID Urinary Issue 09/26/23 09/26/23 History
tablet (Hiprex)
omeprazole 20 mg tablet,delayed 20 mg PO DAILY Gastrointestinal 09/26/23 09/26/23 History
release Issue
semaglutide 0.25 mg or 0.5 mg (2 0.25 mg SC TU diabetes 09/26/23 09/26/23 History
mg/3 mL) subcutaneous pen injector
(Ozempic)
Review of Systems
-
History Source: Patient
All other systems: Negative unless noted
Constitutional: Weight Loss and Fatigue
Respiratory: Trouble Breathing
Cardiac: No Symptoms
Abdomen/GI: Anorexia
Physical Exam
Vital Signs
Temp Pulse Resp BP Pulse Ox
97.6 F 82 18 117/71 96
10/01/23 10:54 10/01/23 10:54 10/01/23 10:54 10/01/23 10:54 10/01/23 10:54
Lab Results
10/01/23 06:56
10/01/23 06:56
Ufl-E-Ndtrheszecq Pept 8900 pg/ml 09/29/23 06:50
Physical Exam
General: Well Developed, Well Nourished, No Apparent Distress and Comfortable
HEENT: Normocephalic, Anicteric and Moist Mucous Membranes
Respiratory: Clear and Non Labored Respirations
Cardiac: S1/S2 and Regular Rhythm; Negative Peripheral Edema
Breast: Deferred by me
GI: Soft, Non Tender, Non Distended and Normal Bowel Sounds
Rectal: Deferred by Provider
Genito-urinary: No Costovertebral Tender
Musculoskeletal: No Clubbing, No Cyanosis and No Edema
Skin: Warm and Dry
Neuro: AO x 3
Hematologic/Lymphatic: No Lymphadenopathy
Psych: Calm
Impression / Plan
-
HFrEF, LVEF 25-30% by TTE 09/30/2023
-Akinesis of all horvath except basal horvath
-Coronary angiography tomorrow morning
-ASA 324mg now & 81mg in am
-Start heparin gtt this evening
-Pre-treatment of dye allergy
-GDMT per findings, continue beta joey and ACEi
Multifocal PNA, in the immunocompromised patient (Remicade & MTX)
Moderate to severe tricuspid regurgitation
Type II DM, Hgba1c 6.1%
Recurrent DVTs, on apixaban 2.5 mg twice daily, per hematology
Recent COVID-19 infection
Data Reviewed
-
EKG: Report Reviewed by me (Sinus rhythm, LAFB, rate 84)
Radiology: Report Reviewed by me (CXR: Markedly low lung volumes. Marked widespread bilateral parenchymal opacification most likely with some progression in comparison to recent prior Chest CT. Most likely differential diagnostic possibilities
would be pneumonia or acute pulmonary edema.)
Medical Tests (Nuc Med, Echo etc): Report Reviewed by me (Echo as above)
Labs: Labs Reviewed by me
Old Records: Reviewed
[2023-10-01 12:01] LABS: Glucose - Point of Care 129 mg/dl (70-99)
--- NOTE | 2023-10-01 13:00 | W.PN.PUL3 ---
Today's Communication / Plan
-
O2
Atb
CS
Diuretic
LHC
Assessment
-
83-year-old female with history of rheumatoid arthritis on chronic methotrexate therapy, recently started on Remicade July 2023, COVID infection early August 2023, with general malaise, vertigo, lightheadedness, anorexia since initiation of
Ozempic early July. Admitted 09/26/2023 with electrolyte abnormalities, dehydration. Found to be hypoxic, 84% with normal chest x-ray. CT chest was obtained. We are asked to comment on her CT findings
Acute hypoxic respiratory insufficiency, 84%
Admitted 09/26/2023
Bilateral pulmonary infiltrates per CT imaging
Groundglass, areas of consolidation, small pleural effusions
Mild elevated lactate on admission, resolved
Metabolic acidemia per ABG
History of positive COVID
August 2023
3 weeks prior with cough per family
Positive COVID February 2022
Gait disturbance, vertigo
Recent fall July 2024
Conditions present prior to admission
Rheumatoid arthritis
Methotrexate since 2021
Remicade since July 2023
History of DVT x 2
On chronic anticoagulation. Eliquis
Coumadin in the past
Last episode age 40
History of uterine cancer
Hysterectomy
History of recurrent UTIs, followed by urology
Hiatal hernia/gastritis
Cll-tzxuggu-tjeidmsfw diabetes
25 pound weight loss over the last 6 months
Plan/recommendations
Patient with extremely complex history.
History obtained by Dr Beltre from multiple family members at bedside and reviewing outpatient records, hospital records
Salient features include slow decline in health over the last 3 months, 25 pound weight loss, poor appetite, vertigo, history of falls, gait disturbance
Patient developed a cough about 3 weeks [employer]
Although denies shortness of breath, family member stated she was visibly short of breath with simple activity
Remicade started July 2023
Ozempic started July 2023
Has been on methotrexate since 2021 per records
Chest exam with crackles bilaterally poor air movement
Chest x-ray reading 09/26/2023, has mild interstitial changes which appear to be peripheral predominant, especially so when compared to 09/23/2023
CXR 09-29 with underpenetration but overall appears worse as c/w 09-26 regarding infitrates
However, clinically appears mildly improved, patient states her dyspnea and cough are improving (coincidentally started on IV CS 09-29 AM)
Sputum production decreasing, passed sample for cx 09-29 but volume was too small for processing
Differential is broad
Recent Covid illness noted
Aspiration pneumonitis, community-acquired infection, opportunistic infection are possibilities given chronic immunosuppression
Drug-induced pneumonitis (Remicade, methotrexate less likely given chronic use)
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
Rheumatoid arthritis related interstitial disease
ABG 09-27 on 4L: 7.43/27/76/17.9/97%
Continue O2 protocol
Not on home O2
Currently O2 requirement declining from 5L to 2L, POx 96% at rest
Continue levalb/iprat nebs tid and prn
Given that her chest x-ray does appear to be slightly progressive from 09/23 to 09/26/2023, suspect there may be an acute component in the setting of subacute symptoms
There may be some mild peripheral predominant interstitial changes on her chest x-ray 02/12/2023 (Subtle)
No significant interstitial changes at the lung bases on abdominal imaging February 2022
Continue with empiric antibiotics, despite negative procalcitonin
Zosyn since 09-27
Difficulty differentiating between rheumatoid arthritis with ILD (less likely given acuity) and COVID pneumonitis.
Started dexam 4 mg IV q8h on 09-29 AM, continue
Coincidentally reports mild improvement in dyspnea and mild cough since day of initiation of CS
Check Legionella antigen, streptococcal antigen, not collected yet, d/w RN 09-28, patient had incontinence and could not provide sample
IS encouraged, showed correct technique
Added acapella, continue
TTE 09-30-23: LVEF 25-30%, akinesis of all horvath except basal horvath, mild MS, mod to severe TR
Seen by Cards, for [facility] tomorrow, rec IV heparin and high dose ASA
Started po furosemide 10-01
Aspiration precautions, head of bed elevated
Speech eval 09-28: aspiration risk increased, rec reg solids, thin liquids
Barium swallow 10-01: no penetration or aspiration. Distal esophageal retention
Holding methotrexate
Less likely CHF (nl ECHO)
DNR status
D/w Mrs and Mr Alexandre at bedside on a daily basis
Subjective Data
-
Date of Service:
Date of Service: October 01, 2023
Chief Complaint: Pulmonary Follow Up
Subjective:
No major events reported
Reports dyspnea and cough continue improving
Review of Systems
General: Fever (n), Sweats (n), Chills (n) and Satisfactory Appetite
Cardiopulmonary: Dyspnea (mild at rest on O2), Cough (improved), Sputum Production (n), Wheezing (n), Chest Pain (n) and Hemoptysis (n)
GI: Abdominal Pain (n), Nausea (n) and Vomiting (n)
Neuro: Weakness
Objective Data
Data Reviewed
Vital Signs / I&O / Oxygen:
Vital Signs
Temp Pulse Resp BP Pulse Ox
97.6 F 82 18 117/71 96
10/01/23 10:54 10/01/23 10:54 10/01/23 10:54 10/01/23 10:54 10/01/23 10:54
Intake and Output
09/30/23 10/01/23 10/02/23
06:59 06:59 06:59
Intake Total 720 / 720 960 / 960
Balance 720 / 720 960 / 960
SaO2 96
Nasal Cannula flow liters per 2
minute
Physical Exam
General: Comfortable
HEENT: Normocephalic, Moist Mucous Membranes and Thrush (n)
Cardiovascular: Regular Rhythm, Murmur, JVD (n), Peripheral Edema (n) and Calf Tenderness (n)
Respiratory: Wheeze (n), Crackles (posterior bases), Rhonchi (few scattered), Accessory Resp Muscle Use (mild) and Stridor (n)
GI: Soft, Non Distended, Non Tender and Normal Bowel Sounds
Neurology: Awake, AO x 3 and No Motor Deficits
Skin: Dry
Labs/Micro/Reports
Lab Data
10/01/23 06:56
10/01/23 06:56
Microbiology
09/26/23 22:11 Blood/Venous Blood Culture - Preliminary
No Growth in 4 days- Final report to follow
09/26/23 21:22 Blood/Venous Blood Culture - Preliminary
No Growth in 4 days- Final report to follow
09/27/23 00:20 Feces/Stool Salmonella/Shigella Culture - Final
No Salmonella, Shigella, Aeromonas or Plesiomonas species
isolated.
09/27/23 00:20 Feces/Stool Campylobacter Culture - Final
No Campylobacter species isolated.
09/27/23 00:20 Feces/Stool Shiga Toxin Test - Final
No E. coli Shiga Toxin 1 or 2 detected.
[2023-10-01] MEDS: NOVOLOG FLEXPEN-LOW RESISTANCE SC (13:19)
[2023-10-01] MEDS: LOW STRENGTH ASPIRIN 324 MG PO (13:19)
[2023-10-01 15:00] VITALS: BP 106/64
[2023-10-01 16:29] LABS: APTT 25.6 Sec (23.4-35.0)
[2023-10-01 16:49] LABS: Glucose - Point of Care 185 mg/dl (70-99)
[2023-10-01] MEDS: HEPARIN 25000 UNITS/250 ML IV (16:55)
[2023-10-01] MEDS: LIPITOR 10 MG PO (21:05)
[2023-10-01 21:39] LABS: Glucose - Point of Care 152 mg/dl (70-99)
[2023-10-01] MEDS: FLUSH (NSS) 1 FLUSH IV (23:16)
[2023-10-01 23:20] VITALS: BP 104/64; BP 98/66; PULSE 94; PULSE 99
[2023-10-01 23:28] LABS: APTT 89.4 Sec (23.4-35.0)
[2023-10-02] VITALS (14 sets, daily range): BP systolic 93–113; BP diastolic 58–72; PULSE 98–107; BMI 29.7
[2023-10-02 05:42] LABS: % Basophils 0.1 % (0-2); % Eosinophils 0.6 % (0-6); % Immature Granulocytes 0.6 % (0-0.5); % Lymphocytes 30.6 % (20.5-51.1); % Monocytes 9.3 % (1.7-9.3); % Neutrophils 58.8 % (42.2-75.2); Absolute Eosinophils 0.1 10^3/uL (0-0.7); Absolute Immature Granulocytes 0.1 10^3/uL (0-0.05); Absolute Lymphocytes 3.3 10^3/uL (1.2-3.4); Absolute Neutrophils 6.3 10^3/uL (1.4-6.5); Hematocrit 34.5 % (37.0-47.0); Hemoglobin 12.1 g/dL (12.0-16.0); Mean Corp Hgb Conc. 35.1 g/dL (33.0-37.0); Mean Corpuscular Hgb 33.5 pg (27.0-31.0); Mean Corpuscular Volume 95.6 fL (81.0-99.0); Mean Platelet Volume 9.3 fL (7.4-10.4); Nucleated Red Blood Cells % 0 %; Platelet Count 253 10^3/uL (130-400); Red Blood Cell Count 3.61 10^6/uL (4.20-5.40); Red Cell Dist. Width 14.5 % (11.5-14.5); White Blood Cell Count 10.8 10^3/uL (4.8-10.8)
[2023-10-02] MEDS: ZOSYN 50 IV ×4 (05:50→23:45)
[2023-10-02] MEDS: FLUSH (NSS) 1 FLUSH IV (05:53)
[2023-10-02 06:00] LABS: Glucose - Point of Care 94 mg/dl (70-99)
[2023-10-02] MEDS: NOVOLOG FLEXPEN-LOW RESISTANCE SC ×2 (06:00→12:22)
[2023-10-02 06:01] LABS: APTT 153.9 Sec (23.4-35.0)
--- NOTE | 2023-10-02 06:25 | PTCARENOTE ---
Lab informed this RN of critical ptt, oejnog=028.9. CAN HAND[employer]ER made aware, no new orders provided. Will follow protocol.
[2023-10-02 07:19] LABS: Blood Urea Nitrogen 11 mg/dl (7-17); Calcium 7.5 mg/dl (8.4-10.2); Carbon Dioxide 29 mmol/L (22-30); Chloride 105 mmol/L (98-107); Estimated Creatinine Clearance 48 ml/min; Glucose 87 mg/dl (70-99); Sodium 136 mmol/L (135-145); eGFR > 60.00
[2023-10-02] MEDS: XOPENEX 1.25 MG INHALANT SOLUTION INH ×3 (07:40→19:57)
[2023-10-02] MEDS: ATROVENT NEBULES 0.5 MG INH ×3 (07:40→19:58)
--- NOTE | 2023-10-02 08:17 | W.PN.CD ---
Today's Communication / Plan
-
Cardiac catheterization today.
Impression / Plan
-
Impression/Plan: 83 y/o female with NIDDM, DVTs on apixaban, RA on DMARD (MTX, infliximab) admitted with hypoxic respiratory failure.
#HFrEF/Cardiomyopathy
-Acute.
-LVEF 25-30% with akinesis of all horvath except basal horvath by TTE.
-Suspicious for Takotsubo.
-Coronary angiography/LHC today.
-Pre-treatment of dye allergy.
-Continue beta joey.
-Replace potassium.
#Multifocal PNA
-Immunocompromised patient (Infliximab & MTX).
-ABX per pulmonary.
#Type II DM
-Chronic, stable.
-Hgba1c 6.1%
#Recurrent DVTs
-Chronic.
-Continue apixaban 2.5 mg twice daily, per hematology.
#Recent COVID-19 infection
#Moderate to severe tricuspid regurgitation
Subjective/Interval History:
No acute events.
No subjective complaints.
Weight stable.
K+ = 3.0 this AM.
DATA:
TTE, 09/30/2023:
CONCLUSIONS
�Severely reduced left ventricular systolic function.� Akinesis of all horvath
�except basal horvath.
�LV ejection fraction is 25-30% by visual assessment.
�Severe mitral annular calcification.
�Mild mitral stenosis without significant regurgitation.
�Moderate to severe tricuspid regurgitation.
�Compared to previous echo 08/02/2023, the systolic function was normal on the
�prior study. There is now moderate to severe tricuspid regurgitation.
Speech/Swallow, 10/01/2023:
Impression: No penetration or aspiration noted. Distal esophageal retention Detailed findings as described above.
Physical Exam
Vital Signs/Labs
Vital Signs
Temp Pulse Resp BP Pulse Ox
36.6 C 85 18 113/72 96
10/02/23 07:30 10/02/23 07:42 10/02/23 07:42 10/02/23 07:30 10/02/23 07:42
09/30/23 10/01/23 10/02/23
11:59 11:59 11:59
Actual Weight 63.548 kg 66.542 kg 64.41 kg
10/02/23 05:31
10/02/23 05:31
APTT 153.9 Sec (23.4-35.0) H* 10/02/23 05:31
Magnesium Cancelled 09/28/23 11:54
09/29/23
06:50
Uow-O-Nreavgldtqk Pept 8900
Physical Exam
Constitutional: No acute distress and Comfortable
EENT: Anicteric and Moist mucous membranes
Cardiovascular: Rhythm & rate is regular, Pedal edema is absent, JVD pressure is normal, S1S2 is normal and Murmur/rub/gallop absent
Respiratory: Respiratory effort normal, Lungs clear to auscul., Wheeze Absent, Crackles Absent and Rhonchi Absent
GI: Soft, Distention absent, Flat, Non tender and Normal bowel sounds
Neuro/Psych: AO x 3
Data Reviewed
-
Date of Service: October 02, 2023
Medical Decision Making: Reviewed Test Results, Independent Historian Assessment and Test Interpretation
EKG: Tracing Personally Visualized and interpreted and Report Reviewed by me
Echo: Report Reviewed by me
X-Ray/CT/US/MRI/NUC/PET: Image Personally Visualized and interpreted and Report Reviewed by me
Labs: Labs Reviewed by me
[2023-10-02] MEDS: ZOFRAN 4 MG IV (08:21)
[2023-10-02] MEDS: TOPROL XL 25 MG PO (08:22)
[2023-10-02] MEDS: ASPIR LOW (ENTERIC COATED) 81 MG PO (08:22)
[2023-10-02] MEDS: LASIX 40 MG IV (08:22)
[2023-10-02] MEDS: VITAMIN D3 (cholecalciferol) 50 MCG PO (08:22)
[2023-10-02] MEDS: PROTONIX 40 MG PO (08:22)
[2023-10-02] MEDS: FOLVITE 1 MG PO ×2 (08:22→20:37)
[2023-10-02] MEDS: HIPREX 1 GRAM PO ×2 (08:24→20:37)
[2023-10-02] MEDS: DELTASONE 50 MG PO ×2 (09:52→15:55)
[2023-10-02] MEDS: KCL 20 MEQ PO ×2 (10:14→20:38)
--- NOTE | 2023-10-02 10:38 | CM ---
Patient seen at bedside. Patient family also present and indicated that they were aware of plan to move to [facility] when medically appropriate and were hoping to see physician. CM will follow for discharge planning needs.
Plan; SNF; [facility] when medically appropriate/pending bed availability.
[2023-10-02 12:18] LABS: Glucose - Point of Care 119 mg/dl (70-99)
[2023-10-02 13:41] LABS: APTT 163.4 Sec (23.4-35.0)
--- NOTE | 2023-10-02 15:08 | W.PN.PUL3 ---
Today's Communication / Plan
-
O2 protocol
Atb
CS
Diuretic
LHC
Assessment
-
83-year-old female with history of rheumatoid arthritis on chronic methotrexate therapy, recently started on Remicade July 2023, COVID infection early August 2023, with general malaise, vertigo, lightheadedness, anorexia since initiation of
Ozempic early July. Admitted 09/26/2023 with electrolyte abnormalities, dehydration. Found to be hypoxic, 84% with normal chest x-ray. CT chest was obtained. We are asked to comment on her CT findings
Acute hypoxic respiratory insufficiency, 84%
Admitted 09/26/2023
Bilateral pulmonary infiltrates per CT imaging
Groundglass, areas of consolidation, small pleural effusions
Mild elevated lactate on admission, resolved
Metabolic acidemia per ABG
History of positive COVID
August 2023
3 weeks prior with cough per family
Positive COVID February 2022
Gait disturbance, vertigo
Recent fall July 2024
Conditions present prior to admission
Rheumatoid arthritis
Methotrexate since 2021
Remicade since July 2023
History of DVT x 2
On chronic anticoagulation. Eliquis
Coumadin in the past
Last episode age 40
History of uterine cancer
Hysterectomy
History of recurrent UTIs, followed by urology
Hiatal hernia/gastritis
Inh-aootdeo-wrsmookui diabetes
25 pound weight loss over the last 6 months
Plan/recommendations
History obtained by Dr Beltre from multiple family members at bedside and reviewing outpatient records, hospital records
Salient features include slow decline in health over the last 3 months, 25 pound weight loss, poor appetite, vertigo, history of falls, gait disturbance
Patient developed a cough about 3 weeks [employer]
Although denies shortness of breath, family member stated she was visibly short of breath with mild activity
Remicade started July 2023
Ozempic started July 2023
Has been on methotrexate since 2021 per records
Chest exam with crackles bilaterally poor air movement
Chest x-ray reading 09/26/2023, has mild interstitial changes which appear to be peripheral predominant, especially so when compared to 09/23/2023
CXR 09-29 with underpenetration but overall appears worse as c/w 09-26 regarding infiltrates
However, clinically appears mildly improved, patient states her dyspnea and cough are improving (coincidentally just started on IV CS 09-29 AM)
Sputum production decreasing, passed sample for cx 09-29 but volume was too small for processing
Follow up CXR 10-02 AM with better technique, no major change as c/w 09-26 film
Broad differential
Recent Covid illness noted
Aspiration pneumonitis, community-acquired infection, opportunistic infection are possibilities given chronic immunosuppression
Drug-induced pneumonitis (Remicade, methotrexate less likely given chronic use)
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
Rheumatoid arthritis related interstitial disease
ABG 09-27 on 4L: 7.43/27/76/17.9/97%
Continue O2 protocol
Not on home O2
Currently O2 requirement declining from 5L to 2L with POx 96% at rest. Currently on RA at rest, POx 96%
Continue levalb/iprat nebs tid and prn
Given that her chest x-ray does appear to be slightly progressive from 09/23 to 09/26/2023, suspect there may be an acute component in the setting of subacute symptoms
There may be some mild peripheral predominant interstitial changes on her chest x-ray 02/12/2023 (Subtle)
No significant interstitial changes at the lung bases on abdominal imaging February 2022
Continue with empiric antibiotics, despite negative procalcitonin
Zosyn since 09-27, complete 5d course 10-02 and d/c
Difficulty differentiating between rheumatoid arthritis with ILD (less likely given acuity) and COVID pneumonitis.
Started dexam 4 mg IV q8h on 09-29 AM, continue
Coincidentally reports improvement in dyspnea and mild cough since day of initiation of CS, and improvement accelerated since diuretics added upon identification of abnormal TTE with decreased EF
Legionella antigen, streptococcal antigen, not collected yet, d/w RN 09-28, patient had incontinence and could not provide sample
IS encouraged, showed correct technique
Added acapella, continue
TTE 09-30-23: LVEF 25-30%, akinesis of all horvath except basal horvath, mild MS, mod to severe TR
Seen by Cards, for [facility] today, rec IV heparin and high dose ASA
Started po furosemide 10-01
Apixaban on hold for now (h/o recurrent DVT)
Aspiration precautions, head of bed elevated
Speech eval 09-28: aspiration risk increased, rec reg solids, thin liquids
Barium swallow 10-01: no penetration or aspiration. Distal esophageal retention
Holding methotrexate
DNR status
D/w Mrs and Mr Alexander at bedside on a daily basis
Subjective Data
-
Date of Service:
Date of Service: October 02, 2023
Chief Complaint: Pulmonary Follow Up
Subjective:
Resp plaza continues improving
Awaiting [facility] today
Review of Systems
General: Fever (n), Sweats (n), Chills and Satisfactory Appetite (n)
Cardiopulmonary: Dyspnea (n at rest on RA at time of visit), Cough, Sputum Production (trace), Wheezing (n) and Chest Pain (n)
GI: Abdominal Pain (n), Nausea (n) and Vomiting (n)
Neuro: Weakness
Objective Data
Data Reviewed
Vital Signs / I&O / Oxygen:
Vital Signs
Temp Pulse Resp BP Pulse Ox
97.6 F 88 16 99/64 94
10/02/23 11:55 10/02/23 14:00 10/02/23 14:00 10/02/23 11:55 10/02/23 11:55
Intake and Output
10/01/23 10/02/23 10/03/23
06:59 06:59 06:59
Intake Total 960 / 960 820 / 820
Balance 960 / 960 820 / 820
SaO2 94
Nasal Cannula flow liters per 2
minute
Physical Exam
General: Comfortable
HEENT: Normocephalic, Moist Mucous Membranes and Thrush (n)
Cardiovascular: Regular Rhythm, Murmur, JVD (n), Peripheral Edema (n) and Calf Tenderness (n)
Respiratory: Wheeze (n), Crackles (posterior bases), Rhonchi (few scattered), Accessory Resp Muscle Use (mild) and Stridor (n)
GI: Soft, Non Distended, Non Tender and Normal Bowel Sounds
Neurology: Awake, AO x 3 and No Motor Deficits
Skin: Dry
Labs/Micro/Reports
Lab Data
10/02/23 05:31
10/02/23 05:31
Laboratory Results
10/01/23 10/01/23 10/01/23
16:10 21:00 23:08
APTT 25.6 Cancelled 89.4 H
10/02/23 10/02/23
05:31 12:38
APTT 153.9 H* 163.4 H*
Microbiology
09/26/23 22:11 Blood/Venous Blood Culture - Final
No Growth - Final Report
09/26/23 21:22 Blood/Venous Blood Culture - Final
No Growth - Final Report
09/27/23 00:20 Feces/Stool Salmonella/Shigella Culture - Final
No Salmonella, Shigella, Aeromonas or Plesiomonas species
isolated.
09/27/23 00:20 Feces/Stool Campylobacter Culture - Final
No Campylobacter species isolated.
09/27/23 00:20 Feces/Stool Shiga Toxin Test - Final
No E. coli Shiga Toxin 1 or 2 detected.
--- NOTE | 2023-10-02 15:50 | W.PN.HOSP.TC ---
Addendum entered and electronically signed by Caleb Lemos MD 10/02/23 16:46:
Patient seen and examined
Discussed with resident
Acute hypoxic respiratory failure with bilateral diffuse infiltrates.
Initial concern for multifocal pneumonia versus post-COVID lung, versus vasculitis.
ID workup negative to date.
Negative vasculitis serology.
Remains on broad-spectrum antibiotics.
Initiated on systemic corticosteroids.
New diagnosis of cardiomyopathy with LVEF now decreased to 25%.
Initiated on IV diuresis.
Follow-up chest x-ray today with significant improvement of bilateral infiltrates leaning towards resolving pulmonary edema rather than infectious or inflammatory infiltrates.
Left heart cath pending.
Continue IV diuresis monitoring renal function closely.
Plan is to complete total of 7-day course of antibiotics.
Start IV steroid taper from 10/03.
Original Note:
Today's Communication/Plan
-
Left heart catheterization today
Assessment / Plan
Assessment / Plan
Generalized weakness
Heart failure with reduced ejection fraction
Acute hypoxic respiratory failure
Toxic metabolic encephalopathy likely multifactorial due to hypoxia, dehydration.
Elevated anion gap metabolic acidosis
Hypokalemia.
Recent COVID-19 infection.
Rheumatoid arthritis on immunosuppression with Remicade and methotrexate.
Essential hypertension
Diabetes mellitus type 2.
GERD/hiatal hernia
History of UTI with E. coli.
Chronic DVT
Plan:
# Generalized weakness
Low oral intake with 25 pound weight loss and poor appetite.
Suspect possibly Ozempic, also could be with contribution of hypoxia prior to presentation or chronic rheumatoid arthritis on immunosuppression
Ozempic on hold
# Heart failure with reduced ejection fraction 25-30%
pt c/o a worsening sob on 09/29/2023. o2 increased from 4-->5 L
proBNP 8900
IV fluids on hold as patient appears volume overloaded
Responded to low dose lasix 20 mg IV
Monitor volume status
Echo on 09/30/2023 report: Severely reduced left ventricular systolic function.� Akinesis of all horvath
�except basal horvath.
�LV ejection fraction is 25-30% by visual assessment.
�Severe mitral annular calcification.
�Mild mitral stenosis without significant regurgitation.
�Moderate to severe tricuspid regurgitation.
Currently on room air, SpO2 sat at 94%
Continue Lasix, 40 mg, per oral, daily
Left heart catheterization today, suspicion for Takotsubo cardiomyopathy.
#Acute hypoxic respiratory failure
Today on 2 L O2, spO2 at 96%
Chest x-ray report 09/29/23 : Marked widespread bilateral parenchymal opacification most likely with some progression in comparison to recent prior Chest CT. Most likely differential diagnostic possibilities would be pneumonia or acute pulmonary edema
CT scan without contrast with diffuse bilateral infiltrates.
Differential: rheumatoid arthritis with ILD, post-COVID lung, Vasculitides, drug-induced pneumonitis, pneumonia in immunocompromised patient, aspiration pneumonitis
JOLENE level < 10
MPO negative
Hold methotrexate/Remicade.
Continue empiric Zosyn, today day 6
Continue corticosteroids
Follow blood cultures
Legionella and streptococcal antigen pending
Encouraged the use of incentive spirometer, Acapella device
Video fluoroscopy report: No aspiration noted. Distal esophageal retention seen.
Speech eval 09/28/23 report: aspiration risk increased, rec reg solids, thin liquids
Aspiration precautions, head of bed elevation
# Toxic metabolic encephalopathy
Currently patient appears oriented to time place and location
Mental status at baseline
# Hypokalemia
Potassium 3.0 today
KCl per oral 20 mEq
#Type 2 diabetes
hemoglobin A1c 6.1
Basal bolus protocol
Stop Ozempic given possible side effects.
#Recent COVID,
Currently on room air, SpO2 94%
Encouraged the use of incentive spirometer, Acapella device
#Benign HTN
continue metoprolol, hold lisinopril
#recurrent UTI
On Hiprex
#Hx DVT
Stop Eliquis
Start heparin
Code Status:DNR
Anticipated Discharge: > 48 hours
Subjective/Interval History
-
Date of Service: October 02, 2023
Patient reports feeling tired and weak. He is not on oxygen, room air SpO2 sat at 94%.
No shortness of breath, chest pain, swelling of the feet, fever/chills. She is having cough with minimal amount of sputum production.
Objective Data
-
Labs:
Laboratory Results
10/02/23 10/02/23 10/02/23
05:31 12:38 21:30
WBC 10.8
Hgb 12.1
Hct 34.5 L
Plt Count 253
APTT 153.9 H* 163.4 H* Pending
Sodium 136
Potassium 3.0 L
Chloride 105
Carbon Dioxide 29
BUN 11
Creatinine 0.7
Glucose 87
Calcium 7.5 L
Vital Signs:
Vital Signs
Temp Pulse Resp BP Pulse Ox
97.6 F 88 16 99/64 94
10/02/23 11:55 10/02/23 14:00 10/02/23 14:00 10/02/23 11:55 10/02/23 11:55
I&O
10/01/23 10/02/23 10/03/23
06:59 06:59 06:59
Intake Total 960 / 960 820 / 820
Balance 960 / 960 820 / 820
Review of Systems
-
All other systems: Reviewed and negative (As per history)
Physical Exam
-
General: No Apparent Distress and Comfortable
HEENT: Normocephalic and Atraumatic
Respiratory: Clear to Auscultation
Cardiac: Regular Rhythm and S1/S2
GI: Soft, Nontender, Nondistended and Normal Bowel Sounds
Musculoskeletal: No Clubbing, No Cyanosis and No Edema
Skin: Warm and Dry
Neuro: Awake, Alert, Oriented and AO x 3
Psych: Calm
[2023-10-02] MEDS: BENADRYL 50 MG IV (15:56)
[2023-10-02] MEDS: NOVOLOG FLEXPEN-LOW RESISTANCE 1 UNITS SC (18:04)
[2023-10-02 18:10] LABS: Glucose - Point of Care 189 mg/dl (70-99)
[2023-10-02] MEDS: NSS 250 IV (18:41)
--- NOTE | 2023-10-02 18:50 | ITS.CL.CATH ---
Long Term Care Pharmacist - Catheterization
Cardiac Catheterization
Procedure Report:
CARDIAC CATHETERIZATION REPORT
Date of Procedure: 10/02/2023
Referring: Uday Espinosa M.D., Ph.D.
INDICATION: New cardiomyopathy.
PROCEDURE:
1. Left heart catheterization.
2. Coronary angiography.
ACCESS:
6 Nigerien right radial artery.
CATHETERS:
1. 5 [place]ien JR4.
2. 5 Nigerien JL 3.5.
HEMODYNAMIC DATA
Weight (kg): 64.4
AO (s/d/x, mmHg): 97/66/80
LV (s/x mmHg): 98/10
LEFT VENTRICULOGRAPHY: Not performed.
CORONARY ANGIOGRAPHY
Dominance: Right.
Left Main: Normal size, trifurcating vessel. There is no coronary artery disease.
LAD: Normal size vessel giving rise to several small diagonals. The proximal and mid vessel appear relatively normal. The distal vessel tapers rapidly with intermittent subtotal occlusion. The apex vessel is never clearly seen.
Ramus: Diminutive, 1 mm vessel.
Circumflex: Normal size, nondominant vessel that is essentially a single marginal supplying the lateral wall. There is no coronary artery disease.
RCA: Large size, dominant vessel with a significant posterolateral arcade. There is no coronary artery disease.
INTERVENTION(S)
None.
Closure Device: Vascular band.
Radiation (mGy): 342.99
DAP (cm2.Gy): 34.0849
Fluoroscopy time (minutes): 8.5
Sedation time (minutes): 12
CONCLUSIONS
1. 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
2. Severely tortuous right subclavian artery with severe radial artery spasm, making advancement of a pigtail catheter for left ventriculography and possible.
3. Normal filling pressures (LVEDP = 10 mmHg at 64.4 kg), likely inappropriately normal given degree of left ventricular dysfunction (LV ejection fraction = 25-30%).
4. Based on left ventricular findings on echocardiogram with absence of diffuse coronary disease, differential diagnosis includes Takotsubo cardiomyopathy versus SCAD with distal anterior apical dysfunction. Favor Takotsubo given diffuse nature on
echocardiogram.
RECOMMENDATIONS:
1. Expectant management after cardiac catheterization via right radial approach.
2. Limited weight bearing on the right wrist for one week.
3. Regardless of underlying etiology (Takotsubo versus SCAD), treatment will be medical.
4. Allow to be net positive given inappropriately normal LVEDP and severity of LV dysfunction.
5. Guideline directed medical therapy as hemodynamics will tolerate.
6. All further cardiac catheterization should be performed from a right common femoral artery approach given radial artery spasm and severe subclavian tortuosity.
Copy to: Uday Espinosa M.D., Ph.D., Mary Goyal D.O., Leoncio Hernández M.D.
Peter Harmon, , FACC, FACP
[2023-10-02] MEDS: LIPITOR 10 MG PO (20:37)
[2023-10-02] MEDS: TYLENOL 650 MG PO (20:38)
[2023-10-02 21:52] LABS: Glucose - Point of Care 277 mg/dl (70-99)
[2023-10-02 21:55] LABS: APTT 81.5 Sec (23.4-35.0)
[2023-10-03] VITALS (8 sets, daily range): BP systolic 105–127; BP diastolic 60–81; PULSE 89–106; O2SAT 92; BMI 27.8
[2023-10-03] MEDS: ZOSYN 50 IV ×2 (05:51→11:59)
[2023-10-03 06:37] LABS: Hematocrit 37.2 % (37.0-47.0); Hemoglobin 13.1 g/dL (12.0-16.0); Mean Corp Hgb Conc. 35.2 g/dL (33.0-37.0); Mean Corpuscular Hgb 34.2 pg (27.0-31.0); Mean Corpuscular Volume 97.1 fL (81.0-99.0); Mean Platelet Volume 9.9 fL (7.4-10.4); Platelet Count 238 10^3/uL (130-400); Red Blood Cell Count 3.83 10^6/uL (4.20-5.40); Red Cell Dist. Width 14.5 % (11.5-14.5); White Blood Cell Count 12.3 10^3/uL (4.8-10.8)
[2023-10-03 07:07] LABS: Blood Urea Nitrogen 15 mg/dl (7-17); Calcium 7.9 mg/dl (8.4-10.2); Carbon Dioxide 26 mmol/L (22-30); Chloride 102 mmol/L (98-107); Estimated Creatinine Clearance 55 ml/min; Glucose 167 mg/dl (70-99); Potassium 4.2 mmol/L (3.5-5.1); Sodium 135 mmol/L (135-145); eGFR > 60.00
[2023-10-03 07:48] LABS: Glucose - Point of Care 151 mg/dl (70-99)
--- NOTE | 2023-10-03 07:55 | W.PN.CD ---
Today's Communication / Plan
-
Continue to hold diuretics.
Change furosemide dosing to weight based (furosemide 40 mg PO PRN weight gain of 1-3 lbs/24 hours, 3-5 lbs/week).
Continue to hold lisinopril in favor of beta blockers.
Allow to be net positive on I/O.
Start dapagliflozin 10 mg daily.
Case management consult.
Impression / Plan
-
Impression/Plan: 83 y/o female with NIDDM, DVTs on apixaban, RA on DMARD (MTX, infliximab) admitted with hypoxic respiratory failure,found to have new [employer] NAVIGATOR.
#HFrEF/Cardiomyopathy
-Acute.
-LVEF 25-30% with akinesis of all horvath except basal horvath by TTE.
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
-LVgram could not be accomplished due to severe radial artery spasm and severe right subclavian artery tortuosity.
-Treatment is GDMT.
-Filling pressures were inappropriately normal. Hold diuretics.
-We will change to a weight based diuretic strategy (furosemide 40 mg PO PRN weight gain of 1-3 lbs/24 hours, 3-5 lbs/week).
-Agree with holding lisinopril with softer blood pressures. Beta blockers are more appropriate given possible SCAD.
-Allow to be net positive on I/O.
-Start dapagliflozin 10 mg daily. Case management consult.
-Repeat echocardiogram in 90 days.
-Repeat EKG this morning for abnormal telemetry.
#Multifocal PNA
-Immunocompromised patient (Infliximab & MTX).
-ABX per pulmonary.
#Type II DM
-Chronic, stable.
-Hgba1c 6.1%
#Recurrent DVTs
-Chronic.
-Continue apixaban 2.5 mg twice daily, per hematology.
#Recent COVID-19 infection
#Moderate to severe tricuspid regurgitation
Subjective/Interval History:
Cath shows possible dLAD SCAD.
LVGram could not be accomplished due to severe subclavian tortuosity complicated by radial artery spasm.
Given diffuse nature on TTE and possible SCAD only in the dLAD, I favor a diagnosis of Takotsubo, though we will never be 100% certain.
Tele shows some irregularity.
DATA:
TTE, 09/30/2023:
CONCLUSIONS
�Severely reduced left ventricular systolic function.� Akinesis of all horvath
�except basal horvath.
�LV ejection fraction is 25-30% by visual assessment.
�Severe mitral annular calcification.
�Mild mitral stenosis without significant regurgitation.
�Moderate to severe tricuspid regurgitation.
�Compared to previous echo 08/02/2023, the systolic function was normal on the
�prior study. There is now moderate to severe tricuspid regurgitation.
Speech/Swallow, 10/01/2023:
Impression: No penetration or aspiration noted. Distal esophageal retention Detailed findings as described above.
Cardiac Catheterization, 10/02/2023:
CONCLUSIONS
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
2.� Severely tortuous right subclavian artery with severe radial artery spasm, making advancement of a pigtail catheter for left ventriculography and possible.
3.� Normal filling pressures (LVEDP = 10 mmHg at 64.4 kg), likely inappropriately normal given degree of left ventricular dysfunction (LV ejection fraction = 25-30%).
4.� Based on left ventricular findings on echocardiogram with absence of diffuse coronary disease, differential diagnosis includes Takotsubo cardiomyopathy versus SCAD with distal anterior apical dysfunction.� Favor Takotsubo given diffuse nature on
echocardiogram.
Physical Exam
Vital Signs/Labs
Vital Signs
Temp Pulse Resp BP Pulse Ox
37.1 C 84 18 109/75 96
10/03/23 03:17 10/03/23 03:17 10/03/23 03:17 10/03/23 03:17 10/03/23 03:17
10/01/23 10/02/23 10/03/23
11:59 11:59 11:59
Actual Weight 66.542 kg 64.41 kg 60.384 kg
10/03/23 05:50
10/03/23 05:50
APTT 81.5 Sec (23.4-35.0) H 10/02/23 21:38
Magnesium Cancelled 09/28/23 11:54
09/29/23
06:50
[id number] Pept 8900
Physical Exam
Constitutional: No acute distress and Comfortable
EENT: Anicteric and Moist mucous membranes
Cardiovascular: Rhythm & rate is regular, Pedal edema is absent, JVD pressure is normal, S1S2 is normal and Murmur/rub/gallop absent
Respiratory: Respiratory effort normal, Lungs clear to auscul., Wheeze Absent, Crackles Absent and Rhonchi Absent
GI: Soft, Distention absent, Flat, Non tender and Normal bowel sounds
Neuro/Psych: AO x 3
Other: Cath Site (Right radial access site is C/D/I.)
Data Reviewed
-
Date of Service: October 03, 2023
Medical Decision Making: Reviewed Test Results, Independent Historian Assessment and Test Interpretation
EKG: Tracing Personally Visualized and interpreted and Report Reviewed by me
Echo: Tracing Personally Visualized and interpreted and Report Reviewed by me
X-Ray/CT/US/MRI/NUC/PET: Image Personally Visualized and interpreted and Report Reviewed by me
Medical Tests (PFT, Pathology etc): Image Personally Visualized and interpreted, Report Reviewed by me, Discussed with Patient and Discussed with Family
Labs: Labs Reviewed by me
[2023-10-03] MEDS: ATROVENT NEBULES 0.5 MG INH ×2 (08:12→14:13)
[2023-10-03] MEDS: XOPENEX 1.25 MG INHALANT SOLUTION INH ×2 (08:13→14:13)
[2023-10-03] MEDS: HIPREX 1 GRAM PO ×2 (08:35→20:29)
[2023-10-03] MEDS: FOLVITE 1 MG PO ×2 (08:35→20:29)
[2023-10-03] MEDS: VITAMIN D3 (cholecalciferol) 50 MCG PO (08:35)
[2023-10-03] MEDS: PROTONIX 40 MG PO (08:35)
[2023-10-03] MEDS: ASPIR LOW (ENTERIC COATED) 81 MG PO (08:35)
[2023-10-03] MEDS: KCL 20 MEQ PO ×2 (08:35→20:29)
[2023-10-03] MEDS: TOPROL XL 25 MG PO (08:36)
[2023-10-03] MEDS: NOVOLOG FLEXPEN-LOW RESISTANCE 1 UNITS SC ×2 (08:36→12:50)
[2023-10-03] MEDS: LASIX IV (08:37)
--- NOTE | 2023-10-03 10:06 | CM ---
Addendum entered by Trena House 10/03/23 13:14:
pending patient to provide [employer] number for accurate cost of med. CM provided coupon and family to provide card tomorrow
Addendum entered by Trena House 10/03/23 11:32:
CM called to patient daughter and about medication coverage. Patient is covered under [employer] per admissions but family does not have card at this time. Patient pharmacy- [facility] refuses to obtain cost of medication without
prescription. CM attempted to get cost via [employer] but prescription not covered per [employer]. CM will provide coupon and requested family to provide card for prescription coverage when possible.
Original Note:
Patient daughter seen at bedside, Patient sleeping. Per Patient daughter plan remains going to [facility] when medically appropriate. CM will continue to follow for discharge planning needs.
Plan; transfer to SNF; [facility] pending medically appropriate.
[2023-10-03 12:00] LABS: Glucose - Point of Care 155 mg/dl (70-99)
[2023-10-03] MEDS: FARXIGA 10 MG PO (12:00)
--- NOTE | 2023-10-03 14:21 | W.PN.PUL3 ---
Today's Communication / Plan
-
-
Oxygen has been weaned off
Steroids discontinued
Complete antibiotics today total of 5 days.
Wean down FiO2
Continue cardiac management.
will follow.
Assessment
-
83-year-old female with history of rheumatoid arthritis on chronic methotrexate therapy, recently started on Remicade July 2023, COVID infection early August 2023, with general malaise, vertigo, lightheadedness, anorexia since initiation of
Ozempic early July. Admitted 09/26/2023 with electrolyte abnormalities, dehydration. Found to be hypoxic, 84% with normal chest x-ray. CT chest was obtained. We are asked to comment on her CT findings
Acute hypoxic respiratory insufficiency, 84%
Admitted 09/26/2023
Bilateral pulmonary infiltrates per CT imaging
Groundglass, areas of consolidation, small pleural effusions
Mild elevated lactate on admission, resolved
Metabolic acidemia per ABG
History of positive COVID
August 2023
3 weeks prior with cough per family
Positive COVID February 2022
Gait disturbance, vertigo
Recent fall July 2024
Conditions present prior to admission
Rheumatoid arthritis
Methotrexate since 2021
Remicade since July 2023
History of DVT x 2
On chronic anticoagulation. Eliquis
Coumadin in the past
Last episode age 40
History of uterine cancer
Hysterectomy
History of recurrent UTIs, followed by urology
Hiatal hernia/gastritis
Mty-skwplax-aqecrbzbj diabetes
25 pound weight loss over the last 6 months
Plan/recommendations
Oxygen requirement significantly improved. Currently has been weaned off as of 10/03/2023.
-
Chest exam with crackles bilaterally.
No significant interstitial changes at the lung bases on abdominal imaging February 2022
Chest x-ray reading 09/26/2023, has mild interstitial changes which appear to be peripheral predominant, especially so when compared to 09/23/2023
CXR - with underpenetration but overall appears worse as c/w 09-26 regarding infiltrates
Chest x-ray 10/02/2023: Shows significant improvement of bilateral infiltrates.
-
Patient has been on IV corticosteroids since 09/29/2023 for possible inflammatory pneumonitis.
TTE 09-30-23: LVEF 25-30%, akinesis of all horvath except basal horvath, mild MS, mod to severe TR
So far negative workup other than new onset LV dysfunction with ejection fraction 25 to 30%. Possible Takotsubo cardiomyopathy. Left and right heart catheterization noted from 10/02/2023.
At this point given new findings with LVEF possible cardiomyopathy. I will discontinue steroids and observe.
Continue with cardiac management
Lasix on hold for now per cardiology.
Broad differential:
Prior history:
History obtained by Dr Beltre from multiple family members at bedside and reviewing outpatient records, hospital records
Salient features include slow decline in health over the last 3 months, 25 pound weight loss, poor appetite, vertigo, history of falls, gait disturbance
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
Although denies shortness of breath, family member stated she was visibly short of breath with mild activity.-
-
Remicade started July 2023
Ozempic started July 2023
Has been on methotrexate since 2021 per records
Recent Covid illness noted
Aspiration pneumonitis, community-acquired infection, opportunistic infection are possibilities given chronic immunosuppression
Drug-induced pneumonitis (Remicade, methotrexate less likely given chronic use)
Rheumatoid arthritis related interstitial disease (less likely with normal serologies being negative)
-
Oxygen has been weaned off.
Not bronchospastic on exam: Hold standing nebulizers, continue on as needed.
-
Continue with empiric antibiotics, despite negative procalcitonin
Legionella antigen, streptococcal antigen, not collected yet, d/w RN 09-28, patient had incontinence and could not provide sample
Cultures negative.
Zosyn since 09-27, complete 5d course [id number] 5 days of antibiotics. Will discontinue and observe.
Difficulty differentiating between rheumatoid arthritis with ILD (less likely given acuity) and COVID pneumonitis.
Started dexam 4 mg IV q8h on 09-29 AM, discontinue dexamethasone 10/03/2023 and observe.
-
Apixaban continues (h/o recurrent DVT)
Aspiration precautions, head of bed elevated
Speech eval 09-28: aspiration risk increased, rec reg solids, thin liquids
Barium swallow 10-01: no penetration or aspiration. Distal esophageal retention
Holding methotrexate for now.
DNR status
Dr. Covington updated at the bedside 10/03/[address] Lyman D/w Mrs and Mr Alexander at bedside 10/02/2023
Subjective Data
-
Date of Service:
Date of Service: October 03, 2023
Chief Complaint: Pulmonary Follow Up (Acute hypoxemic respiratory failure-bilateral infiltrates)
Review of Systems
General: Fever (n)
Cardiopulmonary: Dyspnea (improving), Cough (n) and Sputum Production (n)
GI: Abdominal Pain (n) and Nausea (n)
Objective Data
Data Reviewed
Vital Signs / I&O / Oxygen:
Vital Signs
Temp Pulse Resp BP Pulse Ox
97.4 F 93 20 108/63 91
10/03/23 11:30 10/03/23 11:30 10/03/23 11:30 10/03/23 11:30 10/03/23 11:30
Intake and Output
10/02/23 10/03/23 10/04/23
06:59 06:59 06:59
Intake Total 820 / 820 120 / 120
Balance 820 / 820 120 / 120
SaO2 91
Nasal Cannula flow liters per 2
minute
Physical Exam
General: Comfortable
HEENT: Normocephalic, Moist Mucous Membranes and Thrush (n)
Cardiovascular: Regular Rhythm, Murmur, JVD (n), Peripheral Edema (n) and Calf Tenderness (n)
Respiratory: Wheeze (n), Crackles (posterior bases), Rhonchi (few scattered), Accessory Resp Muscle Use (mild) and Stridor (n)
GI: Soft, Non Distended, Non Tender and Normal Bowel Sounds
Neurology: Awake, AO x 3 and No Motor Deficits
Skin: Dry
Labs/Micro/Reports
Lab Data
10/03/23 05:50
10/03/23 05:50
Laboratory Results
10/02/23
21:38
APTT 81.5 H
Microbiology
09/26/23 22:11 Blood/Venous Blood Culture - Final
No Growth - Final Report
09/26/23 21:22 Blood/Venous Blood Culture - Final
No Growth - Final Report
09/27/23 00:20 Feces/Stool Salmonella/Shigella Culture - Final
No Salmonella, Shigella, Aeromonas or Plesiomonas species
isolated.
09/27/23 00:20 Feces/Stool Campylobacter Culture - Final
No Campylobacter species isolated.
09/27/23 00:20 Feces/Stool Shiga Toxin Test - Final
No E. coli Shiga Toxin 1 or 2 detected.
--- NOTE | 2023-10-03 15:45 | W.PN.HOSP.TC ---
Today's Communication/Plan
-
Stop steroids and antibiotics
Optimize medication regimen
Physical therapy assessment
Assessment / Plan
Assessment / Plan
Impression:
Presentation with generalized fatigue, recurrent nausea and vomiting, oral intake.
Toxic metabolic encephalopathy likely multifactorial due to hypoxia, dehydration.
Acute hypoxic respiratory failure with desaturations down to 84%
Bilateral infiltrates, with differential: Pneumonia in immunocompromised patient, versus noninfectious including vasculitis, post-COVID lung less likely pulmonary edema.
Elevated anion gap metabolic acidosis
Severe hypokalemia.
Recent COVID-19 infection.
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
Essential hypertension
Diabetes mellitus type 2.
GERD/hiatal hernia
History of UTI with E. coli.
Chronic DVT on Eliquis
Plan:
Acute hypoxic respiratory failure secondary to acute systolic CHF.
Repeated echocardiogram with newly decreased LVEF at 20%
Follow-up left heart cath confirmed nonischemic nature with likely stress cardiomyopathy, possible SCAD, less likely
Drastically improved with IV diuresis
LVEDP at the cath.
Follow-up chest x-ray with drastically improved/resolved bilateral infiltrates.
Hold off on diuresis monitor volume status closely.
Medical optimization: Beta-joey, holding lisinopril given marginal blood pressure. Agree with addition of SGLT2 inhibitor.
Monitor volume status closely while off diuretics
ID workup negative.
Completed empiric course of antibiotics with Zosyn for 5 days.
Negative workup for vasculitis.
Corticosteroids discontinued on 10/03.
Type 2 diabetes per
Updated hemoglobin A1c 6.1.
Previously on Ozempic, although presents with generalized fatigue and low oral intake. Latest likely multifactorial in settings of hypoxia. Hold Ozempic for now.
Initiated on Farxiga.
Monitor blood glucose
Chronic lower extremity DVT.
Resume Eliquis.
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
Overall deconditioning.
Physical therapy assessment
Discharge planning possibly to SNF.
Anticipated Discharge: 24 - 48 hours
Subjective/Interval History
-
Date of Service: October 03, 2023
Objective Data
-
Labs:
Laboratory Results
10/03/23
05:50
WBC 12.3 H
Hgb 13.1
Hct 37.2
Plt Count 238
Sodium 135
Potassium 4.2 D
Chloride 102
Carbon Dioxide 26
BUN 15
Creatinine 0.6
Glucose 167 H
Calcium 7.9 L
Vital Signs:
Vital Signs
Temp Pulse Resp BP Pulse Ox
97.4 F 88 16 108/63 91
10/03/23 11:30 10/03/23 14:14 10/03/23 14:14 10/03/23 11:30 10/03/23 11:30
I&O
10/02/23 10/03/23 10/04/23
06:59 06:59 06:59
Intake Total 820 / 820 120 / 120
Balance 820 / 820 120 / 120
Physical Exam
-
General: Well Developed and No Apparent Distress
HEENT: Normocephalic, Atraumatic and Moist Mucous Membranes
Respiratory: Clear to Auscultation
Cardiac: Regular Rhythm and S1/S2; Negative Murmur, Rub or Gallop
GI: Soft, Nontender, Nondistended and Normal Bowel Sounds; Negative Organomegaly
Rectal: Deferred by Provider
Musculoskeletal: No Clubbing, No Cyanosis and No Edema
Skin: Negative Rash
Neuro: Nonfocal/Grossly Intact
[2023-10-03 16:37] LABS: Glucose - Point of Care 142 mg/dl (70-99)
[2023-10-03] MEDS: NOVOLOG FLEXPEN-LOW RESISTANCE SC (16:47)
[2023-10-03] MEDS: ELIQUIS 2.5 MG PO (20:29)
[2023-10-03] MEDS: LIPITOR 10 MG PO (20:29)
[2023-10-03 22:07] LABS: Glucose - Point of Care 134 mg/dl (70-99)
[2023-10-04 03:40] VITALS: BP 127/86
[2023-10-04 06:00] VITALS: BMI 28.1
[2023-10-04 06:51] LABS: % Basophils 0.1 % (0-2); % Eosinophils 0.8 % (0-6); % Immature Granulocytes 0.7 % (0-0.5); % Lymphocytes 13.1 % (20.5-51.1); % Monocytes 7.5 % (1.7-9.3); % Neutrophils 77.8 % (42.2-75.2); Absolute Eosinophils 0.1 10^3/uL (0-0.7); Absolute Immature Granulocytes 0.1 10^3/uL (0-0.05); Absolute Lymphocytes 2.1 10^3/uL (1.2-3.4); Absolute Monocytes 1.2 10^3/uL (0.1-0.6); Absolute Neutrophils 12.3 10^3/uL (1.4-6.5); Hematocrit 38.2 % (37.0-47.0); Hemoglobin 13.1 g/dL (12.0-16.0); Mean Corp Hgb Conc. 34.3 g/dL (33.0-37.0); Mean Corpuscular Hgb 34.1 pg (27.0-31.0); Mean Corpuscular Volume 99.5 fL (81.0-99.0); Mean Platelet Volume 9.6 fL (7.4-10.4); Nucleated Red Blood Cells % 0 %; Platelet Count 266 10^3/uL (130-400); Red Blood Cell Count 3.84 10^6/uL (4.20-5.40); Red Cell Dist. Width 14.6 % (11.5-14.5); White Blood Cell Count 15.8 10^3/uL (4.8-10.8)
[2023-10-04 07:00] VITALS: BP 102/68
--- NOTE | 2023-10-04 07:02 | W.PN.CD ---
Today's Communication / Plan
-
Consider today her dry weight (~61 kg).
Weight based diuretics.
Restart lisinopril 2.5 mg daily.
Stable for transfer to rehab.
Impression / Plan
-
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
#HFrEF/Cardiomyopathy
-Acute. HFrEF now compensated.
-LVEF 25-30% with akinesis of all horvath except basal horvath by TTE.
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
-LVgram could not be accomplished due to severe radial artery spasm and severe right subclavian artery tortuosity.
-Treatment is GDMT.
-Weight based diuretic strategy (furosemide 40 mg PO PRN weight gain of 1-3 lbs/24 hours, 3-5 lbs/week).
-Allow to be net even on I/O. Consider this her dry weight (~61 kg).
-Continue metoprolol and dapagliflozin. Restart lisinopril 2.5 mg daily.
-Repeat echocardiogram in 90 days.
-EKG shows NSR.
#Multifocal PNA
-Immunocompromised patient (Infliximab & MTX).
-ABX per pulmonary.
#Type II DM
-Chronic, stable.
-Hgba1c 6.1%
-We are adding dapagliflozin 10 mg daily.
#Recurrent DVTs
-Chronic.
-Continue apixaban 2.5 mg twice daily, per hematology.
#Recent COVID-19 infection
#Moderate to severe tricuspid regurgitation
Subjective/Interval History:
No acute events.
Weight is up 0.5 kg.
BP is better.
DATA:
TTE, 09/30/2023:
CONCLUSIONS
�Severely reduced left ventricular systolic function.� Akinesis of all horvath
�except basal horvath.
�LV ejection fraction is 25-30% by visual assessment.
�Severe mitral annular calcification.
�Mild mitral stenosis without significant regurgitation.
�Moderate to severe tricuspid regurgitation.
�Compared to previous echo 08/02/2023, the systolic function was normal on the
�prior study. There is now moderate to severe tricuspid regurgitation.
Speech/Swallow, 10/01/2023:
Impression: No penetration or aspiration noted. Distal esophageal retention Detailed findings as described above.
Cardiac Catheterization, 10/02/2023:
CONCLUSIONS
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
2.� Severely tortuous right subclavian artery with severe radial artery spasm, making advancement of a pigtail catheter for left ventriculography and possible.
3.� Normal filling pressures (LVEDP = 10 mmHg at 64.4 kg), likely inappropriately normal given degree of left ventricular dysfunction (LV ejection fraction = 25-30%).
4.� Based on left ventricular findings on echocardiogram with absence of diffuse coronary disease, differential diagnosis includes Takotsubo cardiomyopathy versus SCAD with distal anterior apical dysfunction.� Favor Takotsubo given diffuse nature on
echocardiogram.
Physical Exam
Vital Signs/Labs
Vital Signs
Temp Pulse Resp BP Pulse Ox
36.9 C 96 14 127/86 94
10/04/23 03:40 10/04/23 03:40 10/04/23 03:40 10/04/23 03:40 10/04/23 03:40
10/02/23 10/03/23 10/04/23
11:59 11:59 11:59
Actual Weight 64.41 kg 60.384 kg 60.866 kg
10/04/23 06:22
APTT 81.5 Sec (23.4-35.0) H 10/02/23 21:38
Magnesium Cancelled 09/28/23 11:54
09/29/23
06:50
[id number] Pept 8900
Physical Exam
Constitutional: No acute distress and Comfortable
EENT: Anicteric and Moist mucous membranes
Cardiovascular: Rhythm & rate is regular, Pedal edema is absent, JVD pressure is normal, S1S2 is normal and Murmur/rub/gallop absent
Respiratory: Respiratory effort normal, Lungs clear to auscul., Wheeze Absent, Crackles Absent and Rhonchi Absent
GI: Soft, Distention absent, Flat, Non tender and Normal bowel sounds
Neuro/Psych: AO x 3
Data Reviewed
-
Date of Service: October 04, 2023
Medical Decision Making: Reviewed Test Results, Independent Historian Assessment and Test Interpretation
EKG: Tracing Personally Visualized and interpreted and Report Reviewed by me
Echo: Tracing Personally Visualized and interpreted and Report Reviewed by me
X-Ray/CT/US/MRI/NUC/PET: Image Personally Visualized and interpreted and Report Reviewed by me
Medical Tests (PFT, Pathology etc): Image Personally Visualized and interpreted, Report Reviewed by me, Discussed with Patient and Discussed with Family
Labs: Labs Reviewed by me
[2023-10-04 07:12] LABS: Blood Urea Nitrogen 11 mg/dl (7-17); Calcium 8.4 mg/dl (8.4-10.2); Carbon Dioxide 28 mmol/L (22-30); Chloride 100 mmol/L (98-107); Estimated Creatinine Clearance 55 ml/min; Glucose 98 mg/dl (70-99); Potassium 3.9 mmol/L (3.5-5.1); Sodium 136 mmol/L (135-145); eGFR > 60.00
[2023-10-04] MEDS: KCL 20 MEQ PO ×2 (07:34→21:00)
[2023-10-04] MEDS: FOLVITE 1 MG PO ×2 (07:34→21:01)
[2023-10-04] MEDS: FARXIGA 10 MG PO (07:34)
[2023-10-04] MEDS: PROTONIX 40 MG PO (07:34)
[2023-10-04] MEDS: TOPROL XL 25 MG PO (07:34)
[2023-10-04] MEDS: ELIQUIS 2.5 MG PO ×2 (07:34→21:00)
[2023-10-04] MEDS: ASPIR LOW (ENTERIC COATED) 81 MG PO (07:35)
[2023-10-04] MEDS: HIPREX 1 GRAM PO ×2 (07:35→21:00)
[2023-10-04] MEDS: VITAMIN D3 (cholecalciferol) 50 MCG PO (07:35)
[2023-10-04] MEDS: ZOFRAN 4 MG IV (07:42)
[2023-10-04 08:17] LABS: Glucose - Point of Care 92 mg/dl (70-99)
[2023-10-04] MEDS: NOVOLOG FLEXPEN-LOW RESISTANCE SC ×3 (08:44→18:05)
[2023-10-04 11:26] VITALS: BP 103/65
[2023-10-04 11:44] LABS: Glucose - Point of Care 112 mg/dl (70-99)
--- NOTE | 2023-10-04 13:07 | W.PN.PUL3 ---
Today's Communication / Plan
-
Continue with cardiac management
Continue to observe off of steroids and antibiotics
No additional recommendation from the pulmonary perspective
Sign off
Recommend outpatient pulmonary follow-up.
Assessment
-
83-year-old female with history of rheumatoid arthritis on chronic methotrexate therapy, recently started on Remicade July 2023, COVID infection early August 2023, with general malaise, vertigo, lightheadedness, anorexia since initiation of
Ozempic early July. Admitted 09/26/2023 with electrolyte abnormalities, dehydration. Found to be hypoxic, 84% with normal chest x-ray. CT chest was obtained. We are asked to comment on her CT findings
Acute hypoxic respiratory insufficiency, 84%
Admitted 09/26/2023
Bilateral pulmonary infiltrates per CT imaging
Groundglass, areas of consolidation, small pleural effusions
Mild elevated lactate on admission, resolved
Metabolic acidemia per ABG
History of positive COVID
August 2023
3 weeks prior with cough per family
Positive COVID February 2022
Gait disturbance, vertigo
Recent fall July 2024
Conditions present prior to admission
Rheumatoid arthritis
Methotrexate since 2021
Remicade since July 2023
History of DVT x 2
On chronic anticoagulation. Eliquis
Coumadin in the past
Last episode age 40
History of uterine cancer
Hysterectomy
History of recurrent UTIs, followed by urology
Hiatal hernia/gastritis
Nvk-knaegqg-tejgkhibg diabetes
25 pound weight loss over the last 6 months
Plan/recommendations
Oxygen has been discontinued 10/03/2023.
-
Lung exam relatively clear. 10/04/2023.
No significant interstitial changes at the lung bases on abdominal imaging February 2022
Chest x-ray reading 09/26/2023, has mild interstitial changes which appear to be peripheral predominant, especially so when compared to 09/23/2023
Chest x-ray 10/02/2023: Shows significant improvement of bilateral infiltrates.
-
Patient has been on IV corticosteroids since 09/29/2023 for possible inflammatory pneumonitis.
Steroids discontinued 10/03/2023.
-
TTE 09-30-23: LVEF 25-30%, akinesis of all horvath except basal horvath, mild MS, mod to severe TR
So far negative workup other than new onset LV dysfunction with ejection fraction 25 to 30%. Possible Takotsubo cardiomyopathy. Left and right heart catheterization noted from 10/02/2023.
Continue with cardiac management
Lasix on hold for now per cardiology.
At this point no evidence for autoimmune disorders.
Less likely idiopathic interstitial pneumonia or infectious etiology.
-
Remicade started July 2023
Ozempic started July 2023
Has been on methotrexate since 2021 per records
Recent Covid illness noted
Drug-induced pneumonitis (Remicade, methotrexate less likely given chronic use)
Rheumatoid arthritis related interstitial disease (less likely with normal serologies being negative)
-
Not bronchospastic on exam: Hold standing nebulizers, continue on as needed.
-
Antibiotics have been discontinued-infectious etiology is less likely
Legionella antigen, streptococcal antigen, not collected yet, d/w RN 09-28, patient had incontinence and could not provide sample
Cultures negative.
Zosyn since 09-27, complete 5d course [id number] 5 days of antibiotics. Discontinue 10/03/2023.
-
Apixaban continues (h/o recurrent DVT)
Aspiration precautions, head of bed elevated
Speech eval 09-28: aspiration risk increased, rec reg solids, thin liquids
Barium swallow 10-01: no penetration or aspiration. Distal esophageal retention
Holding methotrexate for now.
DNR status
Dr. Covington updated at the bedside 10/03/[address] Lyman D/w Mrs and Mr Alexander at bedside 10/02/2023
-
No additional recommendation from the pulmonary perspective
Sign off
Recommend outpatient pulmonary evaluation.
Subjective Data
-
Date of Service:
Date of Service: October 04, 2023
Chief Complaint: Pulmonary Follow Up (Acute hypoxemic respiratory failure-bilateral infiltrates)
Subjective:
No new complaints
Remains off supplemental oxygen
Denies hemoptysis or phlegm production.
Review of Systems
General: Fever (n)
Cardiopulmonary: Dyspnea (none at rest)
GI: Abdominal Pain (n), Nausea (n) and Vomiting (n)
Objective Data
Data Reviewed
Vital Signs / I&O / Oxygen:
Vital Signs
Temp Pulse Resp BP Pulse Ox
97.6 F 96 16 103/65 94
10/04/23 11:26 10/04/23 11:59 10/04/23 11:26 10/04/23 11:59 10/04/23 11:26
Intake and Output
10/03/23 10/04/23 10/05/23
06:59 06:59 06:59
Intake Total 120 / 120 500 / 500
Balance 120 / 120 500 / 500
SaO2 94
Nasal Cannula flow liters per 2
minute
Physical Exam
General: Comfortable
HEENT: Normocephalic, Moist Mucous Membranes and Thrush (n)
Cardiovascular: Regular Rhythm, Murmur, JVD (n), Peripheral Edema (n) and Calf Tenderness (n)
Respiratory: Clear, Accessory Resp Muscle Use (mild) and Stridor (n)
GI: Soft, Non Distended, Non Tender and Normal Bowel Sounds
Neurology: Awake, AO x 3 and No Motor Deficits
Skin: Dry
Labs/Micro/Reports
Lab Data
10/04/23 06:22
10/04/23 06:22
Microbiology
09/26/23 22:11 Blood/Venous Blood Culture - Final
No Growth - Final Report
09/26/23 21:22 Blood/Venous Blood Culture - Final
No Growth - Final Report
--- NOTE | 2023-10-04 13:08 | CM ---
Addendum entered by Rosa Isela Ortega 10/04/23 16:47:

Report # [phone]
[facility] 10[facility]04/23 16:43:
Patient needs COVID Test in AM; Attending notified to order
IMM explained and signed
Plan: Discharge to [facility]; after 3:00 PM tomorrow, 10/05, via Ambulance
Transport forms completed; asked Unit Control Worker to schedule ambulance for 4 tomorrow.
Addendum entered by Rosa Isela [facility] 10/04/23 16:11:
Plan: discharge to SNF pending bed availability at another facility
Addendum entered by [facility] 10/04/23 15:55:
made aware that Quiana Lin had active Covid in the building. Stated he did not want to go to [facility].
Per request, referral sent to [facility]
Addendum entered by Rosa Isela [facility] 10/04/23 15:02:
[facility] requested Covid vaccine dates; notified via phone; will go home to get the information before transport @ 1730 today.
Jaimee at [facility] notified
Addendum entered by Rosa Isela [facility] 10/04/23 14:31:
Ambulance medicinal plant picker time 1730
Addendum entered by Rosa Isela [facility] 10/04/23 14:07:
Plan: Discharge to [facility] today; spouse notified of plan and agreeable
Transport via Ambulance
Report # [phone]

Addendum entered by Rosa Iselaedwin Stark 10/04/23 13:17:
Notified Jaimee W @ [facility] multiple times to get a status on bed availability for today. No response yet
Original Note:
Notified [facility] for Farxiga cost prescribed by Attending
Out of Pocket cost for 30 day supply is $47.00
Attending notified via [facility] [employer]
--- NOTE | 2023-10-04 14:11 | W.DS.TRANS ---
DC Summary - Multimedia Assistant
-
Discharge Instructions:
Discharge Diagnosis/Procedures Cardiac cath 10/02/23
Presentation with generalized fatigue, recurrent
nausea and vomiting, oral intake.
Toxic metabolic encephalopathy likely
multifactorial due to hypoxia, dehydration.
Acute hypoxic respiratory failure with
desaturations down to 84%
Bilateral infiltrates, with differential:
Pneumonia in immunocompromised patient, versus
noninfectious including vasculitis, post-COVID
lung less likely pulmonary edema.
Elevated anion gap metabolic acidosis
Severe hypokalemia.
Recent COVID-19 infection.
Rheumatoid Tritus on immunosuppression with
Remicade and methotrexate.
Essential hypertension
Diabetes mellitus type 2.
GERD/hiatal hernia
History of UTI with E. coli.
Chronic DVT on Eliquis
Instructions:
Stand-Alone Forms: DC Instructions- Cath/EP Lab
Changes to Home Medications: Yes
Discharge Medications:
DC Medications w/original date entered in [facility]
simvastatin 10 mg tablet 10 mg PO HS High cholesterol 02/12/12
biotin 5,000 mcg disintegrating tablet 2,500 mcg PO HS Supplement 03/07/22
cholecalciferol (vitamin D3) 50 mcg (2,000 unit) chewable tablet 50 mcg PO DAILY Supplement 03/07/22
folic acid 1 mg tablet 1 mg PO BID Supplement 03/07/22
methotrexate sodium 2.5 mg tablet 20 mg PO TH@1700 Autoimmune disorder 03/07/22
metoprolol succinate 25 mg tablet,extended release 24 hr 25 mg PO DAILY Blood pressure 03/07/22
apixaban 2.5 mg tablet (Eliquis) 2.5 mg PO BID Blood Clot Prevention/Tx 09/26/23
cranberry extract 200 mg capsule (Ellura) 400 mg PO DAILY Supplement 09/26/23
denosumab 60 mg/mL subcutaneous syringe (Prolia) 60 mg SC [id number] osteoporosis 09/26/23
methenamine hippurate 1 gram tablet (Hiprex) 1 g PO BID Urinary Issue 09/26/23
omeprazole 20 mg tablet,delayed release 20 mg PO DAILY Gastrointestinal Issue 09/26/23
dapagliflozin propanediol 10 mg tablet (Farxiga) 10 mg PO DAILY #30 tabs 10/04/23
furosemide 40 mg tablet (Lasix) 40 mg PO DAILY PRN Weight gain #30 tabs 10/04/23
lisinopril 2.5 mg tablet 2.5 mg PO DAILY #30 tabs 10/04/23
Home Medication Changes
Ozempic discontinued
Farxiga initiated
Lisinopril dose decreased
Lasix started on as needed weight-based protocol
Pending Results: No
--- NOTE | 2023-10-04 14:27 | W.PN.HOSP.TC ---
Today's Communication/Plan
-
Discharge to SNF
Assessment / Plan
Assessment / Plan
Assessment / Plan
Generalized weakness
Heart failure with reduced ejection fraction
Acute hypoxic respiratory failure
Toxic metabolic encephalopathy likely multifactorial due to hypoxia, dehydration.
Elevated anion gap metabolic acidosis
Hypokalemia.
Recent COVID-19 infection.
Rheumatoid arthritis on immunosuppression with Remicade and methotrexate.
Essential hypertension
Diabetes mellitus type 2.
GERD/hiatal hernia
History of UTI with E. coli.
Chronic DVT
Plan:
# Generalized weakness
Low oral intake with 25 pound weight loss and poor appetite.
Suspect possibly Ozempic, also could be with contribution of hypoxia prior to presentation or chronic rheumatoid arthritis on immunosuppression
Ozempic on hold
# Heart failure with reduced ejection fraction 25-30%
proBNP 8900
Responded to low dose lasix 20 mg IV
Monitor volume status
Echo on 09/30/2023 report: Severely reduced left ventricular systolic function.� Akinesis of all horvath
�except basal horvath.
�LV ejection fraction is 25-30% by visual assessment.
�Severe mitral annular calcification.
�Mild mitral stenosis without significant regurgitation.
�Moderate to severe tricuspid regurgitation.
Currently on room air, SpO2 sat at 94%
Continue Lasix, 40 mg, per oral, daily
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
artery dissection.
2.� Severely tortuous right subclavian artery with severe radial artery spasm, making advancement of a pigtail catheter for left ventriculography and possible.
3.� Normal filling pressures (LVEDP = 10 mmHg at 64.4 kg), likely inappropriately normal given degree of left ventricular dysfunction (LV ejection fraction = 25-30%).
4.� Based on left ventricular findings on echocardiogram with absence of diffuse coronary disease, differential diagnosis includes Takotsubo cardiomyopathy versus SCAD with distal anterior apical dysfunction.� Favor Takotsubo given diffuse nature on
echocardiogram.
Treatment is GDMT
Initiated on Farxiga on 10/03/2023
Weight-based diuretic regimen with furosemide 40 mg per oral as needed with weight gain of 1-3 lbs in 1 day or 3-5 lbs in 1 week
Continue metoprolol
#Acute hypoxic respiratory failure
Patient is weaned off oxygen, SpO2 at 94% on room air
Chest x-ray report 09/29/23 :� Marked widespread bilateral parenchymal opacification most likely with some progression in comparison to recent prior Chest CT. Most likely differential diagnostic possibilities would be pneumonia or acute pulmonary edema
CT scan without contrast with diffuse bilateral infiltrates.
Differential: rheumatoid arthritis with ILD, post-COVID lung, Vasculitides, drug-induced pneumonitis,� pneumonia in immunocompromised patient, aspiration pneumonitis
JOLENE level < 10
MPO negative
Hold methotrexate/Remicade.
Encouraged the use of incentive spirometer, Acapella device
Video fluoroscopy report: No aspiration noted. Distal esophageal retention seen.
Speech eval 09/28/23 report: aspiration risk increased, rec reg solids, thin liquids
Aspiration precautions, head of bed elevation
Chest x-ray report 10/02/2023 : Significantly improved bilateral opacification most likely representing resolving pulmonary edema, less likely resolving pneumonitis.
Antibiotics discontinued
Corticosteroids discontinued
# Toxic metabolic encephalopathy
Currently patient appears oriented to time place and location
Mental status at baseline
# Hypokalemia
Resolved
Potassium 3.9 today
#Type 2 diabetes
hemoglobin A1c 6.1
Basal bolus protocol
Stop Ozempic given possible side effects.
Started on Farxiga
Monitor blood glucose
#Recent COVID,
Currently on room air, SpO2 94%
Encouraged the use of incentive spirometer, Acapella device
#Benign HTN
continue metoprolol, hold lisinopril given marginal blood pressure
#recurrent UTI
On Hiprex
#Hx DVT
Restarted Eliquis
Code Status:DNR
Anticipated Discharge: Within 24 hours
Subjective/Interval History
-
Date of Service: October 04, 2023
Patient reports being very tired. No shortness of breath, patient is at room air, no fever/chills, chest pain, cough, pedal edema.
Objective Data
-
Labs:
Laboratory Results
10/04/23
06:22
WBC 15.8 H
Hgb 13.1
Hct 38.2
Plt Count 266
Sodium 136
Potassium 3.9
Chloride 100
Carbon Dioxide 28
BUN 11
Creatinine 0.6
Glucose 98
Calcium 8.4
Vital Signs:
Vital Signs
Temp Pulse Resp BP Pulse Ox
97.6 F 96 16 103/65 94
10/04/23 11:26 10/04/23 11:59 10/04/23 11:26 10/04/23 11:59 10/04/23 11:26
I&O
10/03/23 10/04/23 10/05/23
06:59 06:59 06:59
Intake Total 120 / 120 500 / 500
Balance 120 / 120 500 / 500
Review of Systems
-
All other systems: Reviewed and negative (As per history)
Physical Exam
-
General: No Apparent Distress
HEENT: Normocephalic and Atraumatic
Respiratory: Clear to Auscultation
Cardiac: Regular Rhythm and S1/S2
GI: Soft, Nontender, Nondistended and Normal Bowel Sounds
Musculoskeletal: No Clubbing, No Cyanosis and No Edema
Skin: Warm and Dry
Neuro: Awake, Alert, Oriented and AO x 3
Psych: Calm
[2023-10-04 15:15] VITALS: BP 103/67
[2023-10-04 17:04] LABS: Glucose - Point of Care 129 mg/dl (70-99)
[2023-10-04 19:00] VITALS: BP 121/66
[2023-10-04] MEDS: LIPITOR 10 MG PO (21:01)
[2023-10-04 21:20] LABS: Glucose - Point of Care 145 mg/dl (70-99)
[2023-10-04 23:00] VITALS: BP 100/68
[2023-10-05 03:00] VITALS: BP 118/71
[2023-10-05 04:09] VITALS: BMI 28.9
[2023-10-05 07:00] VITALS: BP 109/62
[2023-10-05 07:05] LABS: COVID-19 Antigen Negative (Negative)
[2023-10-05] MEDS: FOLVITE 1 MG PO (08:06)
[2023-10-05] MEDS: VITAMIN D3 (cholecalciferol) 50 MCG PO (08:06)
[2023-10-05] MEDS: FARXIGA 10 MG PO (08:06)
[2023-10-05] MEDS: PROTONIX 40 MG PO (08:06)
[2023-10-05] MEDS: KCL 20 MEQ PO (08:06)
[2023-10-05] MEDS: HIPREX 1 GRAM PO (08:07)
[2023-10-05] MEDS: TOPROL XL 25 MG PO (08:07)
[2023-10-05] MEDS: ASPIR LOW (ENTERIC COATED) 81 MG PO (08:07)
[2023-10-05] MEDS: ELIQUIS 2.5 MG PO (08:07)
[2023-10-05 08:38] LABS: Glucose - Point of Care 112 mg/dl (70-99)
--- NOTE | 2023-10-05 08:55 | W.PN.UPDATE ---
Update Note
Progress Note Update
Patient seen and examined in presence of patient's spouse at bedside remained stable for discharge as planned yesterday and now will be going to [facility] discharge plan and outline as per Dr. Ellis's discharge summary and career center director as of
yesterday. Patient with no new concerns with stable vitals and unchanged exam
[2023-10-05] MEDS: NOVOLOG FLEXPEN-LOW RESISTANCE SC ×2 (09:26→12:36)
--- NOTE | 2023-10-05 10:43 | CM ---
Patient seen at bedside and plan is for transition to [facility] Patient at bedside, all questions answered. Patient ambulance for transfer at 4pm. CM updated Erma at [facility] and she confirmed plan for transfer today. Please call
report to Report # [phone]/ . CM updated admissions at [facility] that patient has had COVID testing and it is negative. CM will continue to follwo for discharge planning needs.
Plan; transfer to SNF
[2023-10-05 11:00] VITALS: BP 90/56
[2023-10-05 12:18] LABS: Glucose - Point of Care 85 mg/dl (70-99)
[2023-10-05 13:29] VITALS: BP 113/68; BP 96/54; PULSE 89; O2SAT 94
--- NOTE | 2023-10-07 15:24 | HPS.HSE ---
Family Physician
-
Family Physician: Mary Goyal DO
Chief Complaint
-
Altered mental status
History of Present Illness
Patient is 83 years old female who [facility] after diagnosis of acute hypoxic respiratory failure secondary to nonischemic cardiomyopathy, acute CHF. Early in the morning today patient was found
to be lethargic and less responsive. She remained afebrile hemodynamically stable with no other focal findings on neurologic exam. Upon presentation to the emergency room I found the patient with her mental status back to her baseline as she alert
awake and oriented to time and place with nonfocal neurologic exam. Further evaluation with CT scan of the head showed no acute abnormalities. Her basic metabolic panel, white count, urinalysis all within normal limits.
Medical History
Past Medical History
Past Medical History: Reports CHF, HTN, NIDDM and Other (Rheumatoid arthritis)
Past Surgical History: Reports None
Social History
Tobacco: Non-smoker
Alcohol: None
Drug: None
Personal:
Living: With Family
Family History
Family History: Not pertinent
Allergies / Home Medications
Allergies reflects when Allergies were last updated in [facility].
Home Medications with original date entered in [facility]
Allergy/Medication List:
Allergies
Allergy/AdvReac Type Severity Reaction Status Date / Time
Iodinated Contrast Media Allergy Anaphylaxis Verified 09/26/23 20:58
[IV Dye, Iodine Containing
Contrast ]
iodine Allergy Anaphylaxis Verified 09/26/23 20:58
metformin Allergy vomiting,di Verified 09/26/23 20:58
arrhea
metformin HCl Allergy vomiting,di Verified 09/26/23 20:58
[From Glucophage] arrhea
tetracycline Allergy stomach Verified 09/26/23 20:58
pain
Home Medications
simvastatin 10 mg tablet 10 mg PO HS High cholesterol 02/12/12
folic acid 1 mg tablet 1 mg PO BID Supplement 03/07/22
methotrexate sodium 2.5 mg tablet 20 mg PO TH@1700 Autoimmune disorder 03/07/22
metoprolol succinate 25 mg tablet,extended release 24 hr 25 mg PO DAILY Blood pressure 03/07/22
apixaban 2.5 mg tablet (Eliquis) 2.5 mg PO BID Blood Clot Prevention/Tx 09/26/23
methenamine hippurate 1 gram tablet (Hiprex) 1 g PO BID Urinary Issue 09/26/23
omeprazole 20 mg tablet,delayed release 20 mg PO DAILY Gastrointestinal Issue 09/26/23
bisacodyl 10 mg rectal suppository (Dulcolax (bisacodyl)) 10 mg TN DAILY PRN if no BM in 8hr after MOM 10/07/23
cholecalciferol (vitamin D3) 50 mcg (2,000 unit) tablet 50 mcg PO DAILY Supplement 10/07/23
dapagliflozin propanediol 10 mg tablet (Farxiga) 10 mg PO DAILY diabetes 10/07/23
furosemide 40 mg tablet (Lasix) 40 mg PO DAILY PRN weight gain 10/07/23
lisinopril 2.5 mg tablet 2.5 mg PO DAILY Blood Pressure 10/07/23
magnesium hydroxide 400 mg/5 mL oral suspension (Milk of Magnesia) 30 ml PO DAILY PRN if no BM x 2 days 10/07/23
sodium phosphates 19 gram-7 gram/118 mL enema (Fleet Enema) 118 ml TN DAILYPRN PRN if no BM 8hr after supp. 10/07/23
Review of Systems
-
A 12 point ROS was completed and negative except as noted: Yes
Physical Exam
Vital Signs
Vital Signs
Temp Pulse Resp BP Pulse Ox
98.7 F 90 18 90/56 92
10/05/23 11:00 10/05/23 11:00 10/05/23 11:00 10/05/23 11:00 10/05/23 11:00
Physical Exam
General: Well Developed, Well Nourished and No Apparent Distress
HEENT: NormoCephalic, Moist mucous membranes and Atraumatic
Respiratory: Clear
Cardiac: S1/S2 and Regular Rhythm; No Murmur or Rub
GI: Soft, Non Tender, Non Distended and Normal Bowel Sounds; No Organomegaly
Rectal: Deferred by Provider
Musculoskeletal: No Clubbing, No Cyanosis and No Edema
Skin: No Rash
Neuro: Awake, Alert, Oriented, AO x 3 and Nonfocal/grossly intact
Laboratory Results
-
10/04/23 06:22
10/04/23 06:22
Laboratory Results
APTT 81.5 Sec (23.4-35.0) H 10/02/23 21:38
pH 7.43 (7.35-7.45) 09/27/23 13:55
pCO2 27 mmHg (32-35) L 09/27/23 13:55
pO2 76 mmHg (83-108) L 09/27/23 13:55
HCO3 17.9 mmol/L (21-28) L 09/27/23 13:55
Lactic Acid 1.5 mmol/L (0.7-2.0) 09/27/23 00:20
Total Bilirubin 0.8 mg/dl (0.2-1.3) 09/26/23 21:22
AST 27 U/L (14-36) 09/26/23 21:22
ALT 16 U/L (0-35) 09/26/23 21:22
Alkaline Phosphatase 70 U/L (38-126) 09/26/23 21:22
Data Reviewed
-
CT Scan: Report Reviewed by me
Lab Data: Labs Reviewed by me
Impression/Plan
-
IMPRESSION:
Altered mental status
Conditions prior to admission:
Cardiomyopathy, nonischemic
Recent COVID-19 infection
Rheumatoid arthritis on immunosuppression with Remicade and methotrexate.
Essential hypertension
Type 2 diabetes.
GERD.
History of urine tract infection with E. coli.
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
PLAN:
Altered mental status with episode of less responsiveness and lethargy, aphasia acute versus chronic.
No focal neurological findings on exam.
CT scan of the head with no acute abnormalities.
Differential diagnosis TIA, need to rule out CVA, versus progressive neurodegenerative disease and dementia, rule out orthostasis.
Initial evaluation was not consistent with infection. Afebrile, urinalysis unremarkable stable respiratory status with recent chest x-ray showed improved bilateral infiltrates attributed to pulmonary edema
Admit for close monitoring.
TIA/CVA workup with MRI of the brain and carotid ultrasound.
Check orthostatic vitals.
Physical/Occupational Therapy evaluation
Recent diagnosis of nonischemic cardiomyopathy.
LVEF 25-30%.
Cardiac cath with no evidence of CAD lesions to overt nonischemic cardiomyopathy, although possible SCAD less likely
Recently diuresed with now compensated volume status. Dry weight 61 kg
Noted marginal blood pressure
Continue metoprolol.
Hold lisinopril.
Continue Farxiga
Hold Lasix monitoring volume status and weight closely
Orthostatic vitals.
Diabetes type 2. Recent hemoglobin A1c 6.1
Recently on Ozempic with reported poor tolerance including nausea and vomiting and decreased oral intake
Continue sliding scale
Monitor blood glucose avoiding hypoglycemia
Continue Farxiga recently initiated for this and as a part of GDMT.
Chronic lower extremity DVT
Resume Eliquis.
Rheumatoid arthritis on Remicade and methotrexate prior to admission.
--- NOTE | 2023-10-28 12:57 | W.HF.CON ---
Heart Failure
- LV Function
Left ventricular function study result: LV Ejection fraction </= 35%
Ejection Fraction Percentage: 25-30
- ARNI
Patient already on ARNI: No
Heart Failure ARNI Contraindication: Hypotension
- ACEI/ARB
Patient already on ACEI/ARB: Yes
- Beta Darlene
Patient already on Evidence Based Beta Darlene: Yes
- Mineralocorticord Receptor Antagonist
Patient already on MRA: No
Heart Failure MRA Contraindication: Hypotension
- SGLT-2 Inhibitor
Patient already on SGLT-2 Inhibitor: Yes
- NYHA CHF Classification
NYHA CHF Classification Level: Class III - Symptoms w/ min exertion, interferes w/ nml daily activity
- ACC/AHA Stage
ACC/AHA Stage: Stage C: Symptomatic Heart Failure
== END 2023-10-05 16:59 | DRG 286 ==
LOC: 3 WEST ACU 23:48
PROVIDERS: Internal Medicine; Internal Medicine Cardiovascular Disease; Nurse Practitioner Family; Nurse Practitioner Gerontology; Physician Assistant Medical; ADMITTING PHYSICIAN Hospitalist; ATTENDING PHYSICIAN Internal Medicine; CONSULT PHYSICIAN Internal Medicine; CONSULT PHYSICIAN Internal Medicine Critical Care Medicine; EMERGENCY PHYSICIAN Emergency Medicine; FAMILY PHYSICIAN Internal Medicine
PROC: 4A023N7 Measurement of Cardiac Sampling and Pressure, Left Heart, Percutaneous Approach (ICD-10-PCS; 2023-10-02)
PROC: B2111ZZ Fluoroscopy of Multiple Coronary Arteries using Low Osmolar Contrast (ICD-10-PCS; 2023-10-02)
DX: I11.0 Hypertensive heart disease with heart failure (principal); G92.8 Other toxic encephalopathy; I50.21 Acute systolic (congestive) heart failure; J96.01 Acute respiratory failure with hypoxia; J18.9 Pneumonia, unspecified organism; E87.20 Acidosis, unspecified; J98.11 Atelectasis; D84.9 Immunodeficiency, unspecified; I51.81 Takotsubo syndrome; E86.0 Dehydration; E87.6 Hypokalemia; M06.9 Rheumatoid arthritis, unspecified; E11.9 Type 2 diabetes mellitus without complications; K21.9 Gastro-esophageal reflux disease without esophagitis; U09.9 Post COVID-19 condition, unspecified; E78.00 Pure hypercholesterolemia, unspecified; R11.2 Nausea with vomiting, unspecified; R19.7 Diarrhea, unspecified; T38.3X5A Adverse effect of insulin and oral hypoglycemic [antidiabetic] drugs, initial encounter; Z66 Do not resuscitate; R63.4 Abnormal weight loss; I08.1 Rheumatic disorders of both mitral and tricuspid valves; M81.0 Age-related osteoporosis without current pathological fracture; I77.1 Stricture of artery; I73.9 Peripheral vascular disease, unspecified; R62.7 Adult failure to thrive; Z68.28 Body mass index [BMI] 28.0-28.9, adult; Z11.52 Encounter for screening for COVID-19; Z91.041 Radiographic dye allergy status; Z87.440 Personal history of urinary (tract) infections; Z86.718 Personal history of other venous thrombosis and embolism; Z85.42 Personal history of malignant neoplasm of other parts of uterus; Z79.84 Long term (current) use of oral hypoglycemic drugs; Z79.01 Long term (current) use of anticoagulants
CPT/HCPCS: 36415; 36600; 70450; 71045; 71046; 71250; 74230; 80048; 80053; 81003; 81015; 82164; 82805; 82962; 83036; 83516; 83605; 83735; 83880; 84145; 85025; 85027; 85730; 87040; 87045; 87046; 87077; 87427; 87502; 87811; 92526; 92610; 92611; 93005; 93306; 93458; 93970; 94640; 96360; 96361; 97116; 97162; 97167; 97530; 97535; 99285; C1769; C1894; Q9967

== ENCOUNTER 2023-10-09 08:41 | Inpatient (IN) | payer MEDICARE, OTHER, SELFPAY ==
[2023-10-07] VITALS (13 sets, daily range): BP systolic 79–121; BP diastolic 48–76; BMI 28.9; BMI 27.2
--- NOTE | 2023-10-07 11:25 | ED.GENMED ---
History of Present Illness
<Marj Abbott MD - Last Filed: 10/07/23 11:27>
General
Chief Complaint: Change in Mental Status
Time Seen by Provider: 10/07/23 11:05
Travel History
Have you had any contact with someone who has COVID-19?: No
Do you have any symptoms of coronavirus? Fever > 100 degrees, chills, cough, shortness of breath, sore throat, loss of taste or smell, muscle aches, or headache?: No
<Mariano Rangel PA-C - Last Filed: 10/07/23 14:15>
History of Present Illness
History of Present Illness:
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 notes that yesterday she did appear to
have a period of time with confusion and difficulty word finding that lasted several hours before resolving. This morning during physical therapy session at her nursing facility she began complaining of lightheadedness and developed expressive
aphasia and left facial droop, the symptoms seem to improve after several minutes. According to the she has no cognitive deficits and is typically 'very sharp'. Was discharged from this hospital 2 days ago after a prolonged admission due
to deconditioning and respiratory failure felt to be multifactorial due to possible pneumonia versus pulmonary vasculitis versus congestive heart failure.
Past History
<Marj Abbott MD - Last Filed: 10/07/23 11:27>
Past History
ED Past Medical History: GERD, NIDDM and Other (Kidney stones)
ED Past Surgical History: Appendectomy, Cholecystectomy, Gynecological (Hysterectomy), Orthopedic (Right rotator cuff), Tonsilectomy, Urological (Lithotripsy) and Other (Hiatal hernia repair, left breast lumpectomy)
Social History
Tobacco: Non-smoker
Alcohol: None
Drug: None
Personal:
<Mariano Rangel PA-C - Last Filed: 10/07/23 14:15>
Review of Systems
Allergies reviewed?: Yes
All Other Systems: ROS reviewed and negative except as documented in HPI and ROS
<Mariano Rangel PA-C - Last Filed: 10/07/23 14:15>
Physical Exam
Physical Exam:
GEN: Well appearing, NAD, WDWN
HEENT: Oral mucosa moist, no scleral icterus, no nasal congestion
Cardiac: Regular rate
Lung: No respiratory distress, no tachypnea
MSK: No gross deformity or injuries
Skin: Good color, no pallor or jaundice, no rashes
Neuro: Alert, follows commands. Disoriented to year and place. Left facial droop affecting the nasolabial fold and eyelids. Mild left upper extremity and left lower extremity drift on exam. Normal right upper and right lower extremity strength.
Normal sensation x 4 extremities. No limb ataxia x 4. Normal visual gaines. NIHSS 4
Psych: Calm, cooperative
<Mariano Rangel PA-C - Last Filed: 10/07/23 14:15>
NIH Stroke Score
Level of Consciousness: 0 - Alert
LOC Questions: 1-Answers one correctly
LOC Commands: 0-Performs both correctly
Best Horizontal Gaze: 0-Normal
Visual Gaines: 0=Normal, no visual loss
Facial Palsy: 1=Minor paralysis
Motor - Right Arm: 0=No drift 10 seconds
Motor - Left Arm: 1=Drift < 10 seconds
Motor - Right Le-No drift 5 seconds
Motor - Left Le-Drift < 5 seconds
Limb Ataxia: 0-Absent
Sensation: 0-Normal
Best Language: 0-No aphasia
Dysarthria: 0-Normal
Extinction and Inattention: 0-No abnormality
Total Score:: 4
Course
<Marj Abbott MD - Last Filed: 10/07/23 11:27>
Orders/Labs/Results
Orders:
Orders
10/07/23 11:20
Electrocardiogram (*1) Urgent
Reason for Study: Atrial Fibrillation
EKG- Treatment ONCE
10/07/23 11:24
CT Head W/o Iv Contrast Urgent
Comment:
Reason For Exam: altered mental status
10/07/23 11:33
Basic Metabolic Panel Urgent
Complete Blood Count/With Diff Urgent
Blood Culture Urgent
FRANKLIN Source: Blood/Venous
Specimen Description:
10/07/23 12:25
Urinalysis Reflex To Culture Urgent
Date Specimen was Collected: 10/07/23
Time Specimen was Collected: 12:24
Urine Microscopic Reflex Cult Urgent
Abnormal Lab Results
10/07/23 10/07/23
11:33 12:25
MCH 33.3 H pg
(27.0-31.0)
Abs Immat Gran (auto) 0.1 H 10^3/uL
(0-0.05)
Absolute Monos (auto) 1.1 H 10^3/uL
(0.1-0.6)
Monocytes % 11.9 H %
(1.7-9.3)
Sodium 131 L mmol/L
(135-145)
Glucose 102 H mg/dl
(70-99)
Calcium 8.2 L mg/dl
(8.4-10.2)
Urine Ketones 3+ A
(Negative)
Ur Occult Blood Reflex Trace A
(Negative)
Urine Bacteria (Reflex) Few A
(Negative)
Urine Glucose 3+ A
(Negative)
10/07/23 11:33
10/07/23 11:33
Vital Signs
Initial and Last Documented VS:
Initial Vital Signs
Temp Pulse Resp BP Pulse Ox
97.9 F 93 18 109/68 97
10/07/23 11:00 10/07/23 11:00 10/07/23 11:00 10/07/23 11:00 10/07/23 11:00
Last Documented Vital Signs
Temp Pulse Resp BP Pulse Ox
97.9 F 95 26 99/65 96
10/07/23 11:00 10/07/23 11:02 10/07/23 11:02 10/07/23 11:01 10/07/23 11:02
<Mariano Rangel PA-C - Last Filed: 10/07/23 14:15>
Orders/Labs/Results
Orders:
Orders
10/07/23 11:20
Electrocardiogram (*1) Urgent
Reason for Study: Atrial Fibrillation
EKG- Treatment ONCE
10/07/23 11:24
CT Head W/o Iv Contrast Urgent
Comment:
Reason For Exam: altered mental status
10/07/23 11:33
Basic Metabolic Panel Urgent
Complete Blood Count/With Diff Urgent
Blood Culture Urgent
FRANKLIN Source: Blood/Venous
Specimen Description:
10/07/23 12:25
Urinalysis Reflex To Culture Urgent
Date Specimen was Collected: 10/07/23
Time Specimen was Collected: 12:24
Urine Microscopic Reflex Cult Urgent
Abnormal Lab Results
10/07/23 10/07/23
11:33 12:25
MCH 33.3 H pg
(27.0-31.0)
Abs Immat Gran (auto) 0.1 H 10^3/uL
(0-0.05)
Absolute Monos (auto) 1.1 H 10^3/uL
(0.1-0.6)
Monocytes % 11.9 H %
(1.7-9.3)
Sodium 131 L mmol/L
(135-145)
Glucose 102 H mg/dl
(70-99)
Calcium 8.2 L mg/dl
(8.4-10.2)
Urine Ketones 3+ A
(Negative)
Ur Occult Blood Reflex Trace A
(Negative)
Urine Bacteria (Reflex) Few A
(Negative)
Urine Glucose 3+ A
(Negative)
10/07/23 11:33
10/07/23 11:33
Vital Signs
Initial and Last Documented VS:
Initial Vital Signs
Temp Pulse Resp BP Pulse Ox
97.9 F 93 18 109/68 97
10/07/23 11:00 10/07/23 11:00 10/07/23 11:00 10/07/23 11:00 10/07/23 11:00
Last Documented Vital Signs
Temp Pulse Resp BP Pulse Ox
97.9 F 95 26 99/65 96
10/07/23 11:00 10/07/23 11:02 10/07/23 11:02 10/07/23 11:01 10/07/23 11:02
<Mariano Rangel PA-C - Last Filed: 10/07/23 14:15>
MDM/Problems Addressed
MDM/Problems Addressed:
83-year-old female presents with strokelike symptoms. Time of onset is uncertain that she did have episodic aphasia and confusion yesterday according to family. On my evaluation she has mild left facial droop associated with left upper and lower
extremity drift. She is not a thrombolytic candidate on the basis of her Eliquis use coupled with uncertain time of onset. CT angiogram was omitted during ER workup due to patient's anaphylaxis to IV contrast, low clinical suspicion for large
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 Will admit to the hospitalist service for neurology consultation and further stroke workup
<Mariano Rangel PA-C - Last Filed: 10/07/23 14:15>
*Critical Care Note
Total Time (30-74mins, 75-104mins- exclusive of procedures): Not Applicable
ED Attending Note
<Marj Abbott MD - Last Filed: 10/07/23 11:27>
-
Portions of this chart may have been created with voice recognition software.� Occasional wrong word or��sound alike� substitutions may have occurred due to the inherent limitations of voice recognition software.
Discharge Plan
Departure
Patient Disposition: Admit
Date of Disposition: 10/07/23
Time of Disposition: 12:55
Presentation/result/management discussed w/ accepting MD/DO: Hospitalist
Discharge Problem:
Stroke
Prescriptions:
No Action
simvastatin 10 MG tablet
10 mg PO HS
metoprolol succinate 25 mg Tablet Extended Release 24 Hr
25 mg PO DAILY
Rx Instructions:
10/07/2023, HOLD for HR<60.
methotrexate sodium 2.5 mg Tablet
20 mg PO TH@1700
folic acid 1 mg Tablet
1 mg PO BID
methenamine hippurate [Hiprex] 1 gram Tablet
1 g PO BID
omeprazole 20 mg Tablet,Delayed Release (Dr/Ec)
20 mg PO DAILY
Eliquis 2.5 mg Tablet
2.5 mg PO BID
magnesium hydroxide [Milk of Magnesia] 400 mg/5 mL Suspension
30 ml PO DAILY PRN (Reason: if no BM x 2 days)
bisacodyl [Dulcolax (bisacodyl)] 10 mg Suppository
10 mg AL DAILY PRN (Reason: if no BM in 8hr after MOM)
Fleet Enema 19-7 gram/118 mL Enema
118 ml AL DAILYPRN PRN (Reason: if no BM 8hr after supp. )
cholecalciferol (vitamin D3) 50 mcg (2,000 unit) Tablet
50 mcg PO DAILY
furosemide [Lasix] 40 mg tablet
40 mg PO DAILY PRN (Reason: weight gain )
Rx Instructions:
10/07/2023, (furosemide 40 mg PO DAILYPRN weight gain of 1-3 lbs/24 hours, 3-5 lbs/week).
lisinopril 2.5 mg tablet
2.5 mg PO DAILY
dapagliflozin propanediol [Farxiga] 10 mg tablet
10 mg PO DAILY
Referrals:
Tianna Hearn DO [Family Provider] -
Interventions
Interventions:
*Risk Screen - Suicide Last Done: 10/07/23 11:00
*General Assessment Last Done: 10/07/23 11:00
*Neglect/Abuse Screening Last Done: 10/07/23 11:00
ED- Neurological Assessment Last Done: 10/07/23 12:33
[2023-10-07 11:41] LABS: % Basophils 0.2 % (0-2); % Eosinophils 4.1 % (0-6); % Immature Granulocytes 0.5 % (0-0.5); % Lymphocytes 22.4 % (20.5-51.1); % Monocytes 11.9 % (1.7-9.3); % Neutrophils 60.9 % (42.2-75.2); Absolute Eosinophils 0.4 10^3/uL (0-0.7); Absolute Immature Granulocytes 0.1 10^3/uL (0-0.05); Absolute Lymphocytes 2.1 10^3/uL (1.2-3.4); Absolute Monocytes 1.1 10^3/uL (0.1-0.6); Absolute Neutrophils 5.6 10^3/uL (1.4-6.5); Hematocrit 43.6 % (37.0-47.0); Hemoglobin 14.7 g/dL (12.0-16.0); Mean Corp Hgb Conc. 33.7 g/dL (33.0-37.0); Mean Corpuscular Hgb 33.3 pg (27.0-31.0); Mean Corpuscular Volume 98.6 fL (81.0-99.0); Mean Platelet Volume 9.7 fL (7.4-10.4); Nucleated Red Blood Cells % 0 %; Platelet Count 248 10^3/uL (130-400); Red Blood Cell Count 4.42 10^6/uL (4.20-5.40); Red Cell Dist. Width 13.6 % (11.5-14.5); White Blood Cell Count 9.2 10^3/uL (4.8-10.8)
[2023-10-07 12:25] LABS: Blood Urea Nitrogen 12 mg/dl (7-17); Calcium 8.2 mg/dl (8.4-10.2); Carbon Dioxide 26 mmol/L (22-30); Chloride 101 mmol/L (98-107); Estimated Creatinine Clearance 56 ml/min; Glucose 102 mg/dl (70-99); Sodium 131 mmol/L (135-145); eGFR > 60.00
[2023-10-07 12:36] LABS: Urine Albumin Trace (Neg - Trace); Urine Bilirubin Negative (Negative); Urine Character Clear (Clear); Urine Color Yellow; Urine Glucose 3+ (Negative); Urine Ketone 3+ (Negative); Urine Leukocyte Negative (Negative); Urine Nitrite Negative (Negative); Urine Occult Blood Trace (Negative); Urine Urobilinogen Negative (Neg - 1+)
[2023-10-07 12:52] LABS: Urine Mucus Moderate; Urine Squamous Cell 0-2 /LPF (Few)
[2023-10-07 12:55] LABS: Urine Bacteria Few (Negative); Urine Red Blood Cell 0-2 /HPF (0-2)
--- NOTE | 2023-10-07 15:04 | CON.NEURO ---
Consultation
Order
CC:
HPI: This is an 83-year-old immunocompromised woman who presented to [facility] on October 07, 2022 with transient language deficits.
According to patient's spouse Mr. Joyce had difficulties expressing herself 'word salad 'lasting for several hours. No reports of abnormal movements, motor, sensory or visual deficits.
According to patient's family Ms. joyce has had progressive cognitive decline over the last 2 years. Her has been managing finances cooking and medication administration due to patient's cognitive deficits.
Ms. Alexander was hospitalized to [facility] 09/26/2023-10/04/2023 with hypoxic respiratory failure/cardiomyopathy�
ER VS: 109/68, 93, afebrile
PDMP: Hydrocodone-Acetamin 7.5-325 90 tabs filled in on 04/24/2023, 07/15/2023.
Labs: Sodium�131, gluc-102, normal WBCs, BUN/Cr 20.
EKG: NSR, QTc Int : [address] head-mild atrophy and mild chronic small vessel change.
PMH: uterine CA, RA on Remicade and methotrexate, ICM, HTN, DLP, DM, chronic DVT on Eliquis, GERD, Osteoporosis
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
FH: No family history of dementia
All: Iodine, metformin, tetracycline,
ROS:Constitutional: Negative. Negative for chills, fever and unexpected weight change.
HENT: Negative for ear pain, hearing loss, tinnitus and trouble swallowing.
Eyes: Negative. Negative for photophobia, pain and visual disturbance.
Respiratory: Negative for cough, choking and shortness of breath.
Cardiovascular: Negative for chest pain, palpitations and leg swelling.
Gastrointestinal: Negative for abdominal pain and vomiting.
Endocrine: Negative. Negative for cold intolerance.
Musculoskeletal: Positive for chronic arthralgia
Skin: Negative for rash.
Allergic/Immunologic: Negative. Negative for immunocompromised state.
Neurological: Positive for forgetfulness
Psychiatric/Behavioral: positive for confusion
General: Well developed. In no acute distress.
Cardio: Regular rate and rhythm without murmur. Extremities are without cyanosis or edema.
Neuro:
Mental Status: Alert, oriented to self, person, month, 2023. Follows simple commands consistently. Poor attention and preserved comprehension, nonfluent, difficulties with calculation.
Cranial Nerves: . Pupils are equally round and reactive to light. EOMs full. BTT BL. Mild L ptosis. No nystagmus. V1-V3 intact to light touch and pinprick bilaterally, symmetric. Face symmetric. Normal hearing AU. The palate elevated well.
SCMs and traps 5/5. Tongue midline. No dysarthria.
Motor: No PD, pain related strength exam
Reflexes: bilateral grasp
Sensory: Limited due to poor attention
Coordination: No dysmetria or tremor.
Gait: deferred
Assessment and Plan:
I. TIA vs seizure
II. Chronic neurodegenerative encephalopathy
III. Chronic immunosuppression
IV. History of uterine cancer
-surveillance system monitor
-Please obtain carotid artery US;
-Brain MRI without leonarda
Continue Eliquis
-Will consider routine EEG
-Will follow
I reviewed all radiology and labs along with past medical records pertinent to current medical problems.
Thank you for allowing us to participate in the care of this patient. We will continue to follow. Please do not hesitate to contact us with any questions or concerns.
Subjective/Objective
Subjective Data
Date of Service: October 07, 2023
Objective Data
Vital Signs
Temp Pulse Resp BP Pulse Ox
36.6 C 95 26 99/65 96
10/07/23 11:00 10/07/23 11:02 10/07/23 11:02 10/07/23 11:01 10/07/23 11:02
Lab Results
10/07/23 11:33
10/07/23 11:33
Sodium 131 mmol/L (135-145) L 10/07/23 11:33
Potassium mmol/L (3.5-5.1) 10/07/23 11:33
BUN 12 mg/dl (7-17) 10/07/23 11:33
Glucose 102 mg/dl (70-99) H 10/07/23 11:33
Calcium 8.2 mg/dl (8.4-10.2) L 10/07/23 11:33
Patient Allergies
Iodinated Contrast Media [IV Dye, Iodine Containing Contrast ] Allergy (Verified 09/26/23 20:58)
Anaphylaxis
iodine Allergy (Verified 09/26/23 20:58)
Anaphylaxis
metformin Allergy (Verified 09/26/23 20:58)
vomiting,diarrhea
metformin HCl [From Glucophage] Allergy (Verified 09/26/23 20:58)
vomiting,diarrhea
tetracycline Allergy (Verified 09/26/23 20:58)
stomach pain
Modified Benton Score (MRS)
-
MRS Score:
Medications
-
Home Medications
Medication Instructions Recorded
simvastatin 10 mg tablet 10 mg PO HS High cholesterol 02/12/12
folic acid 1 mg tablet 1 mg PO BID Supplement 03/07/22
methotrexate sodium 2.5 mg tablet 20 mg PO TH@1700 Autoimmune 03/07/22
disorder
metoprolol succinate 25 mg 25 mg PO DAILY Blood pressure 03/07/22
tablet,extended release 24 hr
apixaban 2.5 mg tablet (Eliquis) 2.5 mg PO BID Blood Clot 09/26/23
Prevention/Tx
methenamine hippurate 1 gram 1 g PO BID Urinary Issue 09/26/23
tablet (Hiprex)
omeprazole 20 mg tablet,delayed 20 mg PO DAILY Gastrointestinal 09/26/23
release Issue
bisacodyl 10 mg rectal suppository 10 mg NJ DAILY PRN if no BM in 8hr 10/07/23
(Dulcolax (bisacodyl)) after MOM
cholecalciferol (vitamin D3) 50 50 mcg PO DAILY Supplement 10/07/23
mcg (2,000 unit) tablet
dapagliflozin propanediol 10 mg 10 mg PO DAILY diabetes 10/07/23
tablet (Farxiga)
furosemide 40 mg tablet (Lasix) 40 mg PO DAILY PRN weight gain 10/07/23
lisinopril 2.5 mg tablet 2.5 mg PO DAILY Blood Pressure 10/07/23
magnesium hydroxide 400 mg/5 mL 30 ml PO DAILY PRN if no BM x 2 10/07/23
oral suspension (Milk of Magnesia) days
sodium phosphates 19 gram-7 118 ml NJ DAILYPRN PRN if no BM 10/07/23
gram/118 mL enema (Fleet Enema) 8hr after supp.
Vital Signs and Labs
-
Vital Signs and Labs:
Vital Signs
Temp Pulse Resp BP Pulse Ox
36.6 C 95 26 99/65 96
10/07/23 11:00 10/07/23 11:02 10/07/23 11:02 10/07/23 11:01 10/07/23 11:02
Lab Results
10/07/23 11:33
10/07/23 11:33
Sodium 131 mmol/L (135-145) L 10/07/23 11:33
Potassium mmol/L (3.5-5.1) 10/07/23 11:33
BUN 12 mg/dl (7-17) 10/07/23 11:33
Glucose 102 mg/dl (70-99) H 10/07/23 11:33
Calcium 8.2 mg/dl (8.4-10.2) L 10/07/23 11:33
Home Medications
-
Home Medications
simvastatin 10 mg tablet 10 mg PO HS High cholesterol 02/12/12
folic acid 1 mg tablet 1 mg PO BID Supplement 03/07/22
methotrexate sodium 2.5 mg tablet 20 mg PO TH@1700 Autoimmune disorder 03/07/22
metoprolol succinate 25 mg tablet,extended release 24 hr 25 mg PO DAILY Blood pressure 03/07/22
apixaban 2.5 mg tablet (Eliquis) 2.5 mg PO BID Blood Clot Prevention/Tx 09/26/23
methenamine hippurate 1 gram tablet (Hiprex) 1 g PO BID Urinary Issue 09/26/23
omeprazole 20 mg tablet,delayed release 20 mg PO DAILY Gastrointestinal Issue 09/26/23
bisacodyl 10 mg rectal suppository (Dulcolax (bisacodyl)) 10 mg NJ DAILY PRN if no BM in 8hr after MOM 10/07/23
cholecalciferol (vitamin D3) 50 mcg (2,000 unit) tablet 50 mcg PO DAILY Supplement 10/07/23
dapagliflozin propanediol 10 mg tablet (Farxiga) 10 mg PO DAILY diabetes 10/07/23
furosemide 40 mg tablet (Lasix) 40 mg PO DAILY PRN weight gain 10/07/23
lisinopril 2.5 mg tablet 2.5 mg PO DAILY Blood Pressure 10/07/23
magnesium hydroxide 400 mg/5 mL oral suspension (Milk of Magnesia) 30 ml PO DAILY PRN if no BM x 2 days 10/07/23
sodium phosphates 19 gram-7 gram/118 mL enema (Fleet Enema) 118 ml NJ DAILYPRN PRN if no BM 8hr after supp. 10/07/23
[2023-10-07] MEDS: NOVOLOG FLEXPEN-LOW RESISTANCE SC (17:30)
[2023-10-07 17:31] LABS: Glucose - Point of Care 75 mg/dl (70-99)
[2023-10-07] MEDS: DEXTROSE 50% SYRINGE 12.5 GRAMS IV (19:53)
[2023-10-07] MEDS: NSS 500 IV (20:00)
[2023-10-07] MEDS: ELIQUIS 2.5 MG PO (20:01)
[2023-10-07] MEDS: FOLVITE 1 MG PO (20:01)
[2023-10-07] MEDS: HIPREX 1 GRAM PO (20:01)
[2023-10-07] MEDS: DESENEX/MITRAZOL/ZEASORB 1 APPLIC TOPICAL (20:22)
[2023-10-07 21:39] LABS: Glucose - Point of Care 140 mg/dl (70-99)
[2023-10-07] MEDS: LIPITOR 10 MG PO (23:02)
[2023-10-07] MEDS: ProAmatine 5 MG PO (23:02)
[2023-10-08] VITALS (7 sets, daily range): BP systolic 88–108; BP diastolic 52–63; PULSE 94–95; O2SAT 96; BMI 27.2; BMI 27.5
--- NOTE | 2023-10-08 00:30 | PTCARENOTE ---
1899 vitals, BP 79/48 automatic. Glucose 75. [employer] SAL[employer] CONSULTANT notified. 500 ml NS bolus and 12.5g IV Glucose. Recheck BP 88/52 manual, glucose 140. [employer] CONSULTANT notified and ordered 5 mg PO midodrine. Given as ordered. Recheck BP 100/56. Patient resting comfortably in
bed with call velazquez within reach.
[2023-10-08 06:37] LABS: HDL Cholesterol 28 mg/dl; LDL Cholesterol, Calculated 42 mg/dl; Total Cholesterol 95 mg/dl (50-199); Triglyceride 128 mg/dl (10-149); Very Low Density Lipoprotein 25 mg/dl (0-30)
[2023-10-08 08:38] LABS: Glucose - Point of Care 74 mg/dl (70-99)
[2023-10-08] MEDS: NOVOLOG FLEXPEN-LOW RESISTANCE SC ×3 (08:50→17:25)
[2023-10-08] MEDS: VITAMIN D3 (cholecalciferol) 50 MCG PO (08:52)
[2023-10-08] MEDS: PROTONIX 40 MG PO (08:52)
[2023-10-08] MEDS: HIPREX 1 GRAM PO ×2 (08:52→20:50)
[2023-10-08] MEDS: FOLVITE 1 MG PO ×2 (08:52→20:51)
[2023-10-08] MEDS: FARXIGA 10 MG PO (08:52)
[2023-10-08] MEDS: TOPROL XL 25 MG PO (08:52)
[2023-10-08] MEDS: ELIQUIS 2.5 MG PO (08:53)
[2023-10-08] MEDS: DESENEX/MITRAZOL/ZEASORB 1 APPLIC TOPICAL ×2 (08:53→20:51)
--- NOTE | 2023-10-08 09:50 | W.PN.HOSP.TC ---
Addendum entered and electronically signed by Caleb Lemos MD 10/08/23 18:00:
Patient seen and examined.
Discussed with resident.
Discussed with neurology and cardiology.
Impression and plan:
Presentation with altered mental status and aphasia.
CT scan of the head with no acute abnormalities
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
Patient with no prior history of confirmed arrhythmia.
Repeated echocardiogram today with slightly improved LVEF at 35% and no evidence of LV thrombus.
She has been on Eliquis at 2.5 mg twice daily for chronic lower extremity DVT.
Discussed with cardiology.
Given limitations with Eliquis dosing with age and weight, anticoagulation will be transition to Xarelto.
May need prolonged cardiac monitoring for occult arrhythmia.
Continue physical therapy.
Nonischemic cardiomyopathy.
Volume status compensated
Continue GDMT
Close weight monitoring while off IV Lasix
Type 2 diabetes.
Monitor for hypoglycemia.
Original Note:
Today's Communication/Plan
-
Switch Eliquis 2.5 mg twice daily to Xarelto 20 mg nightly given with fluctuations in normal kidney function
Echo with nonhemorrhagic foci of acute infarct. Most consistent with an embolic event.
Improved LVEF from 25-30% to 30-35%
Hold lisinopril
Hold Lasix
Assessment / Plan
Assessment / Plan
IMPRESSION:
Altered mental status
Conditions prior to admission:
Cardiomyopathy, nonischemic
Recent COVID-19 infection
Rheumatoid arthritis on immunosuppression with Remicade and methotrexate.
Essential hypertension
Type 2 diabetes.
GERD.
History of urine tract infection with E. coli.
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
PLAN:
Presentation with altered mental status with episode of less responsiveness and lethargy, aphasia acute versus chronic.
-Brain MRI: There are 4 tiny foci of restricted diffusion involving the right cerebellum and bilateral cerebrum, consistent with nonhemorrhagic foci of acute infarct. Most consistent with an embolic event.
-Echocardiogram with No obvious LV thrombus.
-Carotid ultrasound with Mild calcified plaque right�common carotid artery and carotid bifurcation. Velocity profiles consistent with less than 50% bilateral internal carotid arteries. Antegrade flow bilateral vertebral arteries.
-CT scan of the head with no acute abnormalities.
-Initial evaluation was not consistent with infection.�Afebrile, urinalysis unremarkable stable respiratory status with recent chest x-ray showed improved bilateral infiltrates attributed to pulmonary edema
-No focal neurological findings on exam.
-Cardiology input appreciated
-On Eliquis 2.5 mg twice daily for DVT prophylaxis
-Transition to Xarelto 20 mg once daily given with fluctuations and normal kidney function
-Telemetry monitoring
-Neurology input appreciated
-Patient too weak for orthostasis
-Physical/Occupational Therapy evaluation
Recent diagnosis of nonischemic cardiomyopathy.
-LVEF improved from 25-30% to 30-35%, TR has improved and is now mild, with no obvious LV thrombus.
-Cardiac cath with no evidence of CAD lesions to overt nonischemic cardiomyopathy, although possible SCAD less likely
-Recently diuresed with now compensated volume status.� Dry weight down to 59.6 kg, previously 61 kg
-Noted marginal blood pressure
-Continue metoprolol.
-Hold lisinopril.
-Continue Farxiga
-Hold Lasix monitoring volume status and weight closely
-Orthostatic vitals.
Diabetes type 2.� Recent hemoglobin A1c 6.1
-Recently on Ozempic with reported poor tolerance including nausea and vomiting and decreased oral intake
-Continue sliding scale
-Monitor blood glucose avoiding hypoglycemia
-Continue Farxiga recently initiated for this and as a part of GDMT.
Chronic lower extremity DVT
-Start Xarelto
Rheumatoid arthritis on Remicade and methotrexate prior to admission.
Anticipated Discharge: > 48 hours
Subjective/Interval History
-
Date of Service: October 08, 2023
Patient is an 83 years old female with past medical history of hypertension, DVT on Eliis, DM, who presented to the ED for evaluation of altered mental status and lethargy. Patient was recently [facility] to [facility]
after diagnosis of acute hypoxic respiratory failure secondary to nonischemic cardiomyopathy, acute CHF. Patient is currently afebrile, hemodynamically stable with no apparent focal neurologic deficit. Her reports that she is increasingly
lethargic but was able to converse with him this morning without any difficulty. On examination, patient seems drowsy, but was easily aroused and was was only oriented to person and place but not time. Previous CT scan of the head showed no acute
abnormalities. Patient was also reported to have been aphasic with 'word salad' but the reports that she has been in and out for aphasia. Patient is scheduled to get a brain MRI without contrast and a carotid artery ultrasound today for
further evaluation.�Her basic metabolic panel, white count, urinalysis all within normal limits.
Objective Data
-
Vital Signs:
Vital Signs
Temp Pulse Resp BP Pulse Ox
98.4 F 84 16 108/63 95
10/08/23 07:07 10/08/23 08:52 10/08/23 07:07 10/08/23 08:52 10/08/23 07:07
I&O
10/07/23 10/08/23 10/09/23
06:59 06:59 06:59
Intake Total 320 / 320
Balance 320 / 320
Review of Systems
-
History Source: Patient
All other systems: Not reviewed unless documented (As per history)
Respiratory: Reports No Symptoms
Skin: Reports No Symptoms
Neuro: Reports Weakness
Physical Exam
-
General: No Apparent Distress
HEENT: Normocephalic and Atraumatic
Respiratory: Clear to Auscultation
Cardiac: Regular Rhythm and S1/S2
GI: Soft, Nontender, Nondistended and Normal Bowel Sounds
Musculoskeletal: No Clubbing, No Cyanosis and No Edema
Skin: Warm and Dry
Neuro: Awake
Psych: Calm and Confused
Data Reviewed
-
Diagnostic Radiology: Image personally visualized and interpreted, Report Reviewed by me and Discussed with Physician
CT Scan: Image personally visualized and interpreted, Report Reviewed by me and Discussed with Physician
Ultrasound: Image personally visualized and interpreted, Report Reviewed by me and Discussed with Physician
Labs: Labs Reviewed by me and Discussed with Physician
Old Records: Reviewed
--- NOTE | 2023-10-08 12:11 | CM ---
Chart reviewed. Pt off unit - spoke with pts at bedside
Reports pt was short term at [facility], transferred to hospital
Prior pt lived with her in 2 story home - has FF set-up
Some assist needed with adl's
Has rolling walker
Plan to return to [facility]
Discussed observation status -
PCP - Dr Goyal
Pharm - [facility]
CM will follow for needs
Plan - tbd
--- NOTE | 2023-10-08 13:48 | CON.CAR ---
Addendum entered and electronically signed by Ruby Pollock MD 10/08/23 15:41:
I saw and examined the patient.
The ECOLOGIST TECHNICIAN's note was reviewed and I agree with the note.
Comment: 80-year-old female with past medical Struve hypertension, hyperlipidemia, type 2 diabetes, prior DVTs on chronic apixaban, recent catheterization (10/02/2023) for a new cardiomyopathy showing no ischemic disease presents from subacute rehab
with weakness and change in her mental status. Currently, she is not oriented, she knows her first name but not her last she knows she is not home but not where, and does not know the appropriate date. MRI shows 4 tiny separate areas of acute
infarct. She had been on Eliquis 2.5 mg p.o. twice daily given her DVT history. Depending on her weight which seems to fluctuate this could have been full dose anticoagulation alternating with preventative dose for DVT. I reviewed her echo
preliminarily at the bedside and it did not show any evidence of LV thrombus with contrast. However given the above findings, would suggest initiating consistent full dose anticoagulation when okay with neurology. Given her weight fluctuations and
normal kidney function would recommend transitioning to Xarelto 20 mg once a day. She did not seem volume overloaded. Continue remaining medications for chronic HFrEF.
Original Note:
Medical History
-
Chief Complaint: Change in mental status
History of Present Illness:
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
09/26/2023 with weakness. That hospitalization lead to an echocardiogram with LVEF of 25-30% as opposed to recent study in July of 2023 with normal EF. Cardiac catheterization did not show obstructive CAD. She was started on GDMT. She presented
back yesterday with change in mental status. She has a confirmed CVA on MRI imaging. Cardiology was consulted. On exam is she confused to time and place.
Past Medical History
Past Medical History: CHF (HFrEF), IDDM and Other (DVT/PE, RA)
Social History
Tobacco: Non-Smoker
Alcohol: None
Drug: None
Personal:
Employment: Retired
Family History
Family History: Reviewed & Not Pertinent
Allergies / Home Medications
Allergy/AdvReac Type Severity Reaction Status Date / Time
Iodinated Contrast Media Allergy Anaphylaxis Verified 09/26/23 20:58
[IV Dye, Iodine Containing
Contrast ]
iodine Allergy Anaphylaxis Verified 09/26/23 20:58
metformin Allergy vomiting,di Verified 09/26/23 20:58
arrhea
metformin HCl Allergy vomiting,di Verified 09/26/23 20:58
[From Glucophage] arrhea
tetracycline Allergy stomach Verified 09/26/23 20:58
pain
Medication Instructions Recorded Confirmed Type
simvastatin 10 mg tablet 10 mg PO HS High cholesterol 02/12/12 10/07/23 History
folic acid 1 mg tablet 1 mg PO BID Supplement 03/07/22 10/07/23 History
methotrexate sodium 2.5 mg tablet 20 mg PO TH@1700 Autoimmune 03/07/22 10/07/23 History
disorder
metoprolol succinate 25 mg 25 mg PO DAILY Blood pressure 03/07/22 10/07/23 History
tablet,extended release 24 hr
apixaban 2.5 mg tablet (Eliquis) 2.5 mg PO BID Blood Clot 09/26/23 10/07/23 History
Prevention/Tx
methenamine hippurate 1 gram 1 g PO BID Urinary Issue 09/26/23 10/07/23 History
tablet (Hiprex)
omeprazole 20 mg tablet,delayed 20 mg PO DAILY Gastrointestinal 09/26/23 10/07/23 History
release Issue
bisacodyl 10 mg rectal suppository 10 mg DC DAILY PRN if no BM in 8hr 10/07/23 10/07/23 History
(Dulcolax (bisacodyl)) after MOM
cholecalciferol (vitamin D3) 50 50 mcg PO DAILY Supplement 10/07/23 10/07/23 History
mcg (2,000 unit) tablet
dapagliflozin propanediol 10 mg 10 mg PO DAILY diabetes 10/07/23 10/07/23 History
tablet (Farxiga)
furosemide 40 mg tablet (Lasix) 40 mg PO DAILY PRN weight gain 10/07/23 10/07/23 History
lisinopril 2.5 mg tablet 2.5 mg PO DAILY Blood Pressure 10/07/23 10/07/23 History
magnesium hydroxide 400 mg/5 mL 30 ml PO DAILY PRN if no BM x 2 10/07/23 10/07/23 History
oral suspension (Milk of Magnesia) days
sodium phosphates 19 gram-7 118 ml DC DAILYPRN PRN if no BM 10/07/23 10/07/23 History
gram/118 mL enema (Fleet Enema) 8hr after supp.
Review of Systems
-
Unable to obtain full review of systems at this time due to: Other (Confusion)
History Source: Patient
Physical Exam
Vital Signs
Temp Pulse Resp BP Pulse Ox
98.4 F 84 16 108/63 95
10/08/23 07:07 10/08/23 08:52 10/08/23 07:07 10/08/23 08:52 10/08/23 07:07
Lab Results
10/07/23 11:33
10/07/23 11:33
Physical Exam
General: Well Developed, Well Nourished, No Apparent Distress and Comfortable
HEENT: Normocephalic, Anicteric and Moist Mucous Membranes
Respiratory: Clear and Non Labored Respirations
Cardiac: S1/S2 and Regular Rhythm; Negative Peripheral Edema
Breast: Deferred by me
GI: Soft, Non Tender, Non Distended and Normal Bowel Sounds
Rectal: Deferred by Provider
Musculoskeletal: No Clubbing, No Cyanosis and No Edema
Skin: Warm and Dry
Neuro: Awake, Alert and Oriented (to herself)
Hematologic/Lymphatic: Lymphadenopathy
Psych: Confused
Impression / Plan
-
CVA
-MRI: 4 tiny foci of restricted diffusion as outlined above, bilateral and involving the right cerebellum and bilateral cerebrum, consistent with nonhemorrhagic foci of acute infarct
-She denies missed doses of apixaban
-Follow up echocardiogram with contrast to rule out LV thrombus
-Neurology following
HFrEF/Cardiomyopathy (LVEF 25-30%)
-Akinesis of all horvath except basal horvath by TTE
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
-GDMT as tolerated
-Beta joey: metoprolol succinate 25mg
-ACEi/ARB: Lisinopril 2.5mg
-SGLT2: Farxiga
-MRA: Can consider
-ICD: Reassess LVEF in 90 days after maximally tolerated GDMT
-Weight based diuretic strategy (furosemide 40 mg PO PRN weight gain of 1-3 lbs/24 hours, 3-5 lbs/week).
-Allow to be net even on I/O.� Consider her dry weight ~61 kg
-Continue metoprolol and dapagliflozin.� Restart lisinopril 2.5 mg daily.
-Repeat echocardiogram in 90 days in LVEF is not recovered
Type II DM, chronic, Hgba1c 6.1%
Recurrent DVTs, chronic, on apixaban 2.5 mg twice daily, per hematology
Recent COVID-19 infection
Immunocompromised patient (Infliximab & MTX)
Moderate to severe tricuspid regurgitation
--- NOTE | 2023-10-08 14:40 | CARDSERVLU ---
Echocardiogram with [facility] completed after protocol screening completed. Allergies verified.
Patent IV site: ___left AC
IV site flushed with 0.9% NaCl pre and post administration.
Diluted bolus method utilized to enhance visualization of ventricular horvath.
Total volume given: __3.0__ mL
Patient tolerated all procedures well without complications.
--- NOTE | 2023-10-08 15:54 | PTCARENOTE ---
NIH not performed at 1200 due to patient being off the floor all morning and afternoon. Will perform 1600 evaluation.
--- NOTE | 2023-10-08 16:19 | EEGC.RPT ---
Continuous EEG Report
Recording
Start Date of Data Reviewed: 10/08/23
Done with Video Recording: Yes
Electrocardiogram: Unremarkable
Report
TECHNICAL REMARKS:��This is a technically satisfactory eighteen channel record employing 21 disc electrodes applied according to a measured international 10-20 electrode placement system.��There were no significant technical difficulties.��The study
was done on a Given.to System.
�
CLINICAL HISTORY: This is an 83-year-old woman with encephalopathy. This study was requested to look for epileptiform abnormalities
MEDICATIONS: no AED
STUDY DURATION: 27 min, 25 sec
REPORT: �At the onset of the EEG, the patient is in drowsy. During a brief wakefulness the background activity consists of 6-7 Hz, impersistent, posteriorly dominant, moderate amplitude, symmetric, and rhythmic activity. Continuous generalized, 2-3
Hz, 30-50 uV at times sharply contoured and rhythmic polymorphic delta activity was seen.� Stepwise intermittent photic stimulation did not induce additional abnormalities. Hyperventilation was not performed. Drowsiness is characterized by low
amplitude mixed frequency activity, decreased eye blinking, and muscle artifact. No epileptiform activity was seen.
�
IMPRESSION: �This is an abnormal awake and drowsy EEG due to a moderate generalized slowing. This finding indicates diffuse cerebral dysfunction
[2023-10-08 17:20] LABS: Glucose - Point of Care 86 mg/dl (70-99)
[2023-10-08] MEDS: XARELTO 20 MG PO (18:39)
[2023-10-08 21:40] LABS: Glucose - Point of Care 104 mg/dl (70-99)
[2023-10-08] MEDS: LIPITOR 10 MG PO (22:31)
[2023-10-08] MEDS: ProAmatine 10 MG PO (23:55)
[2023-10-09] VITALS (10 sets, daily range): BP systolic 73–123; BP diastolic 45–95; BMI 27.4
--- NOTE | 2023-10-09 05:20 | PTCARENOTE ---
about 2300 pt BP 88/56. Notified TONG CARRIER. 10 mg Midodrine PO ordered and given. Recheck BP 123/95. Patient resting comfortably with call velazquez in reach.
[2023-10-09 08:08] LABS: Glucose - Point of Care 84 mg/dl (70-99)
[2023-10-09] MEDS: NOVOLOG FLEXPEN-LOW RESISTANCE SC ×3 (08:47→16:47)
[2023-10-09] MEDS: PROTONIX 40 MG PO (09:07)
[2023-10-09] MEDS: FOLVITE 1 MG PO ×2 (09:08→20:21)
[2023-10-09] MEDS: FARXIGA 10 MG PO (09:08)
[2023-10-09] MEDS: HIPREX 1 GRAM PO ×2 (09:08→20:21)
[2023-10-09] MEDS: VITAMIN D3 (cholecalciferol) 50 MCG PO (09:08)
[2023-10-09] MEDS: DESENEX/MITRAZOL/ZEASORB 1 APPLIC TOPICAL ×2 (09:09→20:22)
--- NOTE | 2023-10-09 09:48 | W.PN.CD ---
Today's Communication / Plan
-
- no further cardiac workup is anticipated and I will sign off
- MEDS: Toprol XL 25 HS, Farxiga 10 po qd, Xarelto 20 po qpm (new), atorvastatin 10 po QHS
- Follow up: Chitra King Oct 18 at 9:20 ([address] Dr. Espinosa)
Impression / Plan
-
Impression: 80-year-old female with past medical hypertension, hyperlipidemia, type 2 diabetes, prior DVTs on chronic apixaban, recent catheterization (10/02/2023) for a new cardiomyopathy showing no ischemic disease presents from subacute rehab with
weakness and change in her mental status.�
Plan:
CVA
-MRI: 4 tiny foci of restricted diffusion as outlined above, bilateral and involving the right cerebellum and bilateral cerebrum, consistent with nonhemorrhagic foci of acute infarct
-Follow up echocardiogram with contrast to rule out LV thrombus -> none seen
-transitioned to rivaroxaban 20 po qd, which covers both DVT and concern for occult/undiagnosed AF
-Neurology following
HFrEF/Cardiomyopathy (LVEF 25-30%)
-Akinesis of all horvath except basal horvath by TTE
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
-GDMT as tolerated
-Beta joey: metoprolol succinate 25mg -. move to evening to see if it helps
-ACEi/ARB: Lisinopril 2.5mg -> held for hypotension
-SGLT2: Farxiga
-MRA: Can consider
-ICD: Reassess LVEF in 90 days after maximally tolerated GDMT
-Weight based diuretic strategy (furosemide 40 mg PO PRN weight gain of 1-3 lbs/24 hours, 3-5 lbs/week).
-Allow to be net even on I/O.� Consider her dry weight ~61 kg
-Continue metoprolol and dapagliflozin.� Restart lisinopril 2.5 mg daily.
-Repeat echocardiogram in 90 days if LVEF is not recovered
Type II DM, chronic, Hgba1c 6.1%
Recurrent DVTs, chronic, on apixaban 2.5 mg twice daily, per hematology
Recent COVID-19 infection
Immunocompromised patient (Infliximab & MTX)
Moderate to severe tricuspid regurgitation
Dispo
- no further cardiac workup is anticipated and I will sign off
- MEDS: Toprol XL 25 HS, Farxiga 10 po qd, Xarelto 20 po qpm (new), atorvastatin 10 po QHS
- Follow up: Chitra King Oct 18 at 9:20 (then Dr. Espinosa)
Laboratory Data
10/07/23
11:33
Hgb 14.7
Creatinine 0.6
Generic Name Dose Route Start Last Admin
Trade Name Freq PRN Reason Stop Dose Admin
Dapagliflozin 10 mg 10/08/23 08:00
Dapagliflozin (Farxiga) 10 Mg Tablet PO 11/05/23 07:59
DAILY MIKE
Metoprolol Succinate 25 mg 10/08/23 08:00
Metoprolol 25 Mg Extended Release Tablet PO 11/05/23 07:59
DAILY MIKE
Rivaroxaban 20 mg 10/08/23 18:00
Rivaroxaban 20 Mg Tablet PO 11/05/23 17:59
QPM MIKE
Atorvastatin Calcium 10 mg 10/07/23 22:00
Atorvastatin (Lipitor) 10 Mg Tablet PO 11/04/23 21:59
HS MIKE
Physical Exam
Vital Signs/Labs
Vital Signs
Temp Pulse Resp BP Pulse Ox
36.3 C 80 16 106/63 95
10/09/23 07:07 10/09/23 08:27 10/09/23 08:27 10/09/23 08:27 10/09/23 07:07
10/08/23 10/09/23 10/10/23
06:59 06:59 06:59
Actual Weight 131 lb 9 oz 130 lb 14.4 oz
10/07/23 11:33
10/07/23 11:33
Triglycerides 128 mg/dl (10-149) 10/08/23 04:47
LDL Cholesterol, Calc 42 mg/dl 10/08/23 04:47
VLDL Cholesterol, Calc 25 mg/dl (0-30) 10/08/23 04:47
HDL Cholesterol 28 mg/dl 10/08/23 04:47
Physical Exam
Constitutional: No acute distress
EENT: Anicteric and Moist mucous membranes
Cardiovascular: Rhythm & rate is regular, Pedal edema is absent, Systolic murmur absent and Diastolic murmur absent
Respiratory: Respiratory effort normal
GI: Soft, Distention absent, Non tender and Normal bowel sounds
Neuro/Psych: Alert
Data Reviewed
-
Date of Service: October 09, 2023
Echo: Report Reviewed by me (Ef may be a bit better)
--- NOTE | 2023-10-09 11:20 | W.PN.HOSP.TC ---
Addendum entered and electronically signed by Caleb Lemos MD 10/09/23 17:24:
Patient seen and examined
Discussed with resident
Discussed with cardiology and neurology
Discussed with family members at the bedside
Impression/plan
Acute embolic CVA
Nonischemic cardiomyopathy
Repeated echocardiogram with no evidence of endocardial thrombosis.
No history of documented arrhythmias.
Neurologic status remained stable with mild residual aphasia and overall generalized weakness.
Anticoagulation changed to Xarelto
Continue physical therapy
Discharge planning
Cardiomyopathy
LVEF 25 to 30%.
GDMT with Toprol, Farxiga could be limited due to hypotension.
Will monitor hemodynamics over the next 24 hours.
Original Note:
Today's Communication/Plan
-
Mental status at baseline
Continue blood pressure consider discontinuing metoprolol while patient is on midodrine
monitor weight and volume status while off IV Lasix.
Continue GDMT
Continue Xarelto
Continue PT/OT
Plan for discharge to SNF
Assessment / Plan
Assessment / Plan
IMPRESSION:
Mental status at baseline
Conditions prior to admission:
Cardiomyopathy, nonischemic
Recent COVID-19 infection
Rheumatoid arthritis on immunosuppression with Remicade and methotrexate.
Essential hypertension
Type 2 diabetes.
GERD.
History of urine tract infection with E. coli.
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
PLAN:
Presentation with altered mental status with lethargy and aphasia.
-CT scan of the head with no acute abnormalities.
-Brain MRI yesterday with nonhemorrhagic foci of acute infarct involving the right cerebellum and bilateral cerebrum consistent with an acute embolic CVA.
-No previous documented arrhythmias with repeat ECG noncontributory.
-Repeat echocardiogram yesterday with improved LVEF at 35% and no evidence of LV thrombus.
-Reassess LVEF in 90 days post stable GDMT.
-Discussed with cardiology.
-Vascular ultrasound with mild calcified plaque in the right and common carotid arteries and carotid bifurcation. However no severe stenosis.
-EEG yesterday with diffuse cerebral dysfunction but no seizure abnormalities.
-Neurology following.
-Patient has been on 2.5 mg Eliquis twice daily for chronic DVT prophylaxis.
-Given patient's age and weight fluctuations which affects Eliquis dosing, anticoagulation transition to Xarelto 20 mg daily.
-May need prolonged cardiac monitoring for occult arrhythmia.
-Continue PT/OT
Nonischemic cardiomyopathy.
-Marginal blood pressure.
-Patient on midodrine and metoprolol.
-Consider discontinuing metoprolol.
-Recent echo with improved TR and LVEF from 25-30% to 30-35%.
-Cardiac cath with no evidence of CAD lesions to overt nonischemic cardiomyopathy, although possible SCAD less likely
-Dry weight down to 59.6 kg, monitor weight and volume status while off IV Lasix.
-Continue GDMT
-Hold lisinopril.
Diabetes type 2.� Recent hemoglobin A1c 6.1
-Recently on Ozempic with reported poor tolerance including nausea and vomiting and decreased oral intake
-Continue sliding scale
-Monitor for hypoglycemia
-Continue GDMT.
Chronic lower extremity DVT
-Continue Xarelto
Rheumatoid arthritis on Remicade and methotrexate prior to admission.
Plan for discharge to SNF
Anticipated Discharge: 24 - 48 hours
Subjective/Interval History
-
Date of Service: October 09, 2023
Objective Data
-
Vital Signs:
Vital Signs
Temp Pulse Resp BP Pulse Ox
97.4 F 80 16 106/63 95
10/09/23 07:07 10/09/23 08:27 10/09/23 08:27 10/09/23 08:27 10/09/23 11:02
I&O
10/08/23 10/09/23 10/10/23
06:59 06:59 06:59
Intake Total 320 / 320 780 / 780
Balance 320 / 320 780 / 780
Review of Systems
-
History Source: Patient and Family
All other systems: Not reviewed unless documented (As per history)
Constitutional: Reports No Symptoms
EENT: Reports No Symptoms Reported
Respiratory: Reports No Symptoms
Cardiac: Reports No Symptoms
Abdomen/GI: Reports No Symptoms
Genitourinary: Reports No Symptoms
Musculoskeletal: Reports No Symptoms
Skin: Reports No Symptoms
Neuro: Reports Weakness
Endocrine: Reports No Symptoms
Hematologic / Lymphatic: Reports No Symptoms
Physical Exam
-
General: Well Developed and No Apparent Distress
HEENT: Normocephalic and Atraumatic
Respiratory: Clear to Auscultation
Cardiac: Regular Rhythm and S1/S2
GI: Soft, Nontender, Nondistended and Normal Bowel Sounds
Musculoskeletal: No Clubbing, No Cyanosis and No Edema
Skin: Warm and Dry
Neuro: Awake
Psych: Calm
Data Reviewed
-
Diagnostic Radiology: Image personally visualized and interpreted, Report Reviewed by me and Discussed with Physician
CT Scan: Image personally visualized and interpreted, Report Reviewed by me and Discussed with Physician
Ultrasound: Image personally visualized and interpreted, Report Reviewed by me and Discussed with Physician
MRI: Image personally visualized and interpreted, Report Reviewed by me and Discussed with Physician
Labs: Labs Reviewed by me and Discussed with Physician
Old Records: Reviewed
[2023-10-09 11:48] LABS: Glucose - Point of Care 110 mg/dl (70-99)
[2023-10-09] MEDS: TOPROL XL PO (12:05)
[2023-10-09] MEDS: ProAmatine 5 MG PO (12:05)
--- NOTE | 2023-10-09 13:03 | W.PN.NEURO.1 ---
Today's Communication / Plan
-
.
Subjective/Objective
Subjective Data
Date of Service: October 09, 2023
24h events: Hypotensive down to 73/54, afebrile.
Ms. Salazar reports no complaints.
TTE(10/08/2023)-technically difficult study, 30-35%, no evidence of intramural thrombus.
Brain MRI (10/08/2023)-right cerebellar/occipital left temporal and parietal acute infarcts.
LDL-42, HbA1C 6.1
PMH: uterine CA, RA, ICM, HTN, DLP, DM, chronic DVT on Eliquis, GERD, Osteoporosis
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
FH: No family history of dementia
All: Iodine, metformin, tetracycline,
ROS:Constitutional: Negative. Negative for chills, fever and unexpected weight change.
HENT: Negative for ear pain, hearing loss, tinnitus and trouble swallowing.
Eyes: Negative. Negative for photophobia, pain and visual disturbance.
Respiratory: Negative for cough, choking and shortness of breath.
Cardiovascular: Negative for chest pain, palpitations and leg swelling.
Gastrointestinal: Negative for abdominal pain and vomiting.
Endocrine: Negative. Negative for cold intolerance.
Musculoskeletal: Positive for chronic arthralgia
Skin: Negative for rash.
Allergic/Immunologic: Negative. Negative for immunocompromised state.
Neurological: Positive for forgetfulness
Psychiatric/Behavioral: positive for intermittent confusion
�
�
General: Well developed. In no acute distress.
Cardio: Regular rate and rhythm without murmur. Extremities are without cyanosis or edema.
Neuro:
Mental Status: Alert, oriented to self, person, 2023.� Follows simple commands consistently.� Poor attention and preserved comprehension, nonfluent, difficulties with calculation.
Cranial Nerves: . Pupils are equally round and reactive to light.� EOMs full.� BTT BL.� Mild L ptosis.� No nystagmus.� V1-V3 intact to light touch and pinprick bilaterally, symmetric.� Face symmetric.� Normal hearing AU.� The palate elevated well.�
SCMs and traps 5/5.� Tongue midline.� No dysarthria.
Motor:� � � � No PD, pain related strength exam
Coordination: No dysmetria or tremor.�
Gait: � � � � � deferred
Assessment and Plan:
�
�I. Cryptogenic acute bihemispheric embolic infarcts. Likely etiology-cardio/aortic embolism or hypercoagulopathy.
II.� Chronic neurodegenerative encephalopathy
III.� Chronic immunosuppression
IV.� History of uterine cancer
-Telemetry monitoring
-Cerebral perfusion goal-60 and 80 mm Hg
-TTE, ILR
-No indication for systemic anticoagulation from neurological perspective at this time
-ASA 81 mg QD, Plavix 75 mg QD
-PT
-DVT prophylaxis
-The patient was discussed with patient's daughter
I reviewed all radiology and labs along with past medical records pertinent to current medical problems.
�
Thank you for allowing us to participate in the care of this patient. We will continue to follow. Please do not hesitate to contact us with any questions or concerns.
�
Objective Data
Vital Signs
Temp Pulse Resp BP Pulse Ox
36.6 C 97 16 78/42 96
10/09/23 11:46 10/09/23 11:46 10/09/23 11:46 10/09/23 12:05 10/09/23 11:46
Lab Results
10/07/23 11:33
10/07/23 11:33
Sodium 131 mmol/L (135-145) L 10/07/23 11:33
Potassium mmol/L (3.5-5.1) 10/07/23 11:33
BUN 12 mg/dl (7-17) 10/07/23 11:33
Glucose 102 mg/dl (70-99) H 10/07/23 11:33
Calcium 8.2 mg/dl (8.4-10.2) L 10/07/23 11:33
LDL Cholesterol, Calc 42 mg/dl 10/08/23 04:47
Patient Allergies
Iodinated Contrast Media [IV Dye, Iodine Containing Contrast ] Allergy (Verified 09/26/23 20:58)
Anaphylaxis
iodine Allergy (Verified 09/26/23 20:58)
Anaphylaxis
metformin Allergy (Verified 09/26/23 20:58)
vomiting,diarrhea
metformin HCl [From Glucophage] Allergy (Verified 09/26/23 20:58)
vomiting,diarrhea
tetracycline Allergy (Verified 09/26/23 20:58)
stomach pain
--- NOTE | 2023-10-09 14:41 | PTOTSP ---
Speech/language evaluation
Quick Aphasia Battery Form 1 overall score was 8.51 which is indicative of a mild aphasia. Patient presents with signs concerning for at least a mild expressive aphasia and concern for a cognitive linguistic impairment. Progressive cognitive
impairment noted prior to admission.
Recommend:
1. Language therapy at the acute care level and after D/C.
2. Further cognitive linguistic assessment at the acute care level and after D/C.
[2023-10-09 16:45] LABS: Glucose - Point of Care 145 mg/dl (70-99)
--- NOTE | 2023-10-09 17:09 | CM ---
Transitioned to inpatient status. Hypotensive and new brain infarcts. PT recommended SNF. Will discuss with family and provide lists.
[2023-10-09] MEDS: XARELTO 20 MG PO (17:45)
[2023-10-09] MEDS: LIPITOR 10 MG PO (20:21)
[2023-10-09 21:21] LABS: Glucose - Point of Care 105 mg/dl (70-99)
[2023-10-10 03:00] VITALS: BP 90/47
[2023-10-10 06:00] VITALS: BMI 27.2
[2023-10-10 07:15] VITALS: BP 91/50
[2023-10-10] MEDS: NOVOLOG FLEXPEN-LOW RESISTANCE SC ×2 (08:43→17:10)
[2023-10-10 08:44] LABS: Glucose - Point of Care 102 mg/dl (70-99)
[2023-10-10] MEDS: HIPREX 1 GRAM PO ×2 (08:45→19:56)
[2023-10-10] MEDS: FOLVITE 1 MG PO ×2 (08:45→19:56)
[2023-10-10] MEDS: FARXIGA 10 MG PO (08:45)
[2023-10-10] MEDS: PROTONIX 40 MG PO (08:45)
[2023-10-10] MEDS: TOPROL XL 25 MG PO (08:45)
[2023-10-10] MEDS: VITAMIN D3 (cholecalciferol) 50 MCG PO (08:46)
[2023-10-10] MEDS: DESENEX/MITRAZOL/ZEASORB 1 APPLIC TOPICAL ×2 (08:46→19:57)
[2023-10-10 11:05] VITALS: BP 96/59
[2023-10-10 11:10] LABS: Glucose - Point of Care 257 mg/dl (70-99)
[2023-10-10 12:25] VITALS: BP 104/69; PULSE 102
[2023-10-10] MEDS: NOVOLOG FLEXPEN-LOW RESISTANCE 3 UNITS SC (13:39)
[2023-10-10 15:15] VITALS: BP 97/54
--- NOTE | 2023-10-10 15:36 | CM ---
Spoke with 2 daughters concerning discharge plan of care. PT recommendation is for SNF. [facility]: [facility] Referrals will be forwarded at this time.
[2023-10-10 17:05] LABS: Glucose - Point of Care 118 mg/dl (70-99)
--- NOTE | 2023-10-10 17:09 | W.PN.HOSP.TC ---
Today's Communication/Plan
-
Neurologic status stable
Participated with physical therapy.
Diet has been advanced
Monitor hemodynamics with hope to improve blood pressure and reasonable tolerance to metoprolol while off JOLENE inhibitor
[facility].
Assessment / Plan
Assessment / Plan
IMPRESSION:
Mental status at baseline
Conditions prior to admission:
Cardiomyopathy, nonischemic
Recent COVID-19 infection
Rheumatoid arthritis on immunosuppression with Remicade and methotrexate.
Essential hypertension
Type 2 diabetes.
GERD.
History of urine tract infection with E. coli.
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
PLAN:
Presentation with altered mental status with lethargy and aphasia.
-CT scan of the head with no acute abnormalities.
-Brain MRI yesterday with nonhemorrhagic foci of acute infarct involving the right cerebellum and bilateral cerebrum consistent with an acute embolic CVA.
-No previous documented arrhythmias with repeat ECG noncontributory.
-Repeat echocardiogram yesterday with improved LVEF at 35% and no evidence of LV thrombus.
-Reassess LVEF in 90 days post stable GDMT.
-Discussed with cardiology.
-Vascular ultrasound with mild calcified plaque in the right and common carotid arteries and carotid bifurcation. However no severe stenosis.
-EEG yesterday with diffuse cerebral dysfunction but no seizure abnormalities.
-Neurology following.
-Patient has been on 2.5 mg Eliquis twice daily for chronic DVT prophylaxis.
-Given patient's age and weight fluctuations which affects Eliquis dosing, anticoagulation transition to Xarelto 20 mg daily.
-Discussed with neurology and cardiology. Contemplating additional workup with CHRIS to completely rule out LV thrombus. Also with no documented arrhythmia, there is no clear indication for systemic anticoagulation. Although given embolic nature of
CVA as well as patient previously on chronic anticoagulation for recurrent deep venous thrombosis and PE, and decision made to continue anticoagulation.
-Continue PT/OT
Nonischemic cardiomyopathy.
-Marginal blood pressure.
-Patient on midodrine and metoprolol.
-Consider discontinuing metoprolol.
-Recent echo with improved TR and LVEF from 25-30% to 30-35%.
-Cardiac cath with no evidence of CAD lesions to overt nonischemic cardiomyopathy, although possible SCAD less likely
-Dry weight down to 59.6 kg, monitor weight and volume status while off IV Lasix.
-Continue GDMT
-Hold lisinopril.
Diabetes type 2.� Recent hemoglobin A1c 6.1
-Recently on Ozempic with reported poor tolerance including nausea and vomiting and decreased oral intake
-Continue sliding scale
-Monitor for hypoglycemia
-Continue GDMT.
Chronic lower extremity DVT
-Continue Xarelto
Rheumatoid arthritis on Remicade and methotrexate prior to admission.
Plan for discharge to SNF
Anticipated Discharge: 24 - 48 hours
Subjective/Interval History
-
Date of Service: October 10, 2023
Objective Data
-
Vital Signs:
Vital Signs
Temp Pulse Resp BP Pulse Ox
97.8 F 98 18 97/54 96
10/10/23 15:15 10/10/23 15:15 10/10/23 15:15 10/10/23 15:15 10/10/23 15:15
I&O
10/09/23 10/10/23 10/11/23
06:59 06:59 06:59
Intake Total 780 / 780 720 / 720
Balance 780 / 780 720 / 720
Physical Exam
-
General: Well Developed and No Apparent Distress
HEENT: Normocephalic, Atraumatic and Moist Mucous Membranes
Respiratory: Clear to Auscultation
Cardiac: Regular Rhythm and S1/S2; Negative Murmur, Rub or Gallop
GI: Soft, Nontender, Nondistended and Normal Bowel Sounds; Negative Organomegaly
Rectal: Deferred by Provider
Musculoskeletal: No Clubbing, No Cyanosis and No Edema
Skin: Negative Rash
Neuro: Nonfocal/Grossly Intact
[2023-10-10] MEDS: XARELTO 20 MG PO (17:28)
[2023-10-10] MEDS: LIPITOR 10 MG PO (19:56)
[2023-10-10 21:31] LABS: Glucose - Point of Care 171 mg/dl (70-99)
[2023-10-10 23:41] VITALS: BP 99/58
[2023-10-11 04:00] VITALS: BMI 27.2
[2023-10-11 07:17] LABS: Glucose - Point of Care 142 mg/dl (70-99)
[2023-10-11 07:20] VITALS: BP 102/52
[2023-10-11] MEDS: NOVOLOG FLEXPEN-LOW RESISTANCE SC ×3 (07:43→16:36)
[2023-10-11] MEDS: FARXIGA 10 MG PO (08:48)
[2023-10-11] MEDS: FOLVITE 1 MG PO (08:48)
[2023-10-11] MEDS: HIPREX 1 GRAM PO (08:48)
[2023-10-11] MEDS: PROTONIX 40 MG PO (08:48)
[2023-10-11] MEDS: VITAMIN D3 (cholecalciferol) 50 MCG PO (08:49)
[2023-10-11] MEDS: TOPROL XL 25 MG PO (08:49)
[2023-10-11] MEDS: DESENEX/MITRAZOL/ZEASORB 1 APPLIC TOPICAL (08:55)
[2023-10-11 09:24] VITALS: BP 104/66
[2023-10-11 11:30] LABS: Glucose - Point of Care 150 mg/dl (70-99)
--- NOTE | 2023-10-11 11:57 | W.DS.TRANS ---
DC Summary - [employer]
-
Discharge Instructions:
Discharge Diagnosis/Procedures Acute CVA
Cardiomyopathy, nonischemic
Recent COVID-19 infection
Rheumatoid arthritis on immunosuppression with
Remicade and methotrexate.
Essential hypertension
Type 2 diabetes.
GERD.
History of urine tract infection with E. coli.
Chronic lower extremity deep venous thrombosis
on Eliquis
Diet Diabetic, Carb Controlled
Instructions:
Stand-Alone Forms:
Changes to Home Medications: Yes
Discharge Medications:
DC Medications w/original date entered in [employer]
simvastatin 10 mg tablet 10 mg PO HS High cholesterol 02/12/12
folic acid 1 mg tablet 1 mg PO BID Supplement 03/07/22
methotrexate sodium 2.5 mg tablet 20 mg PO TH@1700 Autoimmune disorder 03/07/22
metoprolol succinate 25 mg tablet,extended release 24 hr 25 mg PO DAILY Blood pressure 03/07/22
methenamine hippurate 1 gram tablet (Hiprex) 1 g PO BID Urinary Issue 09/26/23
omeprazole 20 mg tablet,delayed release 20 mg PO DAILY Gastrointestinal Issue 09/26/23
bisacodyl 10 mg rectal suppository (Dulcolax (bisacodyl)) 10 mg MO DAILY PRN if no BM in 8hr after MOM 10/07/23
cholecalciferol (vitamin D3) 50 mcg (2,000 unit) tablet 50 mcg PO DAILY Supplement 10/07/23
dapagliflozin propanediol 10 mg tablet (Farxiga) 10 mg PO DAILY diabetes 10/07/23
furosemide 40 mg tablet (Lasix) 40 mg PO DAILY PRN weight gain 10/07/23
magnesium hydroxide 400 mg/5 mL oral suspension (Milk of Magnesia) 30 ml PO DAILY PRN if no BM x 2 days 10/07/23
sodium phosphates 19 gram-7 gram/118 mL enema (Fleet Enema) 118 ml MO DAILYPRN PRN if no BM 8hr after supp. 10/07/23
rivaroxaban 20 mg tablet (Xarelto) 20 mg PO QPM #30 tabs 10/11/23
Home Medication Changes
Xarelto replaced Eliquis
Lisinopril stopped due to hypotension
Pending Results: No
--- NOTE | 2023-10-11 12:19 | CM ---
Patient has been medically cleared for discharge to [facility] care home and rehab services. Nurse to nurse report # [phone] and
. Ambulance transport to be scheduled. notified.
--- NOTE | 2023-10-11 13:39 | W.DCSUMMARY ---
Discharge Summary
Discharge Data
Date of Admission: 10/09/23
Date of Discharge: 10/23/23
-
Pending Results: No
Discharge Plan
-
Patient Disposition: [facility]pc/SNF
Discharge Diagnosis/Procedures: Acute CVA
Cardiomyopathy, nonischemic
Recent COVID-19 infection
Rheumatoid arthritis on immunosuppression with Remicade and methotrexate.
Essential hypertension
Type 2 diabetes.
GERD.
History of urine tract infection with E. coli.
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
Diet: Diabetic, Carb Controlled
Activity: As tolerated and With Walker
Driving Restrictions: As prior to admission
Bathing Restrictions: None
Other Services: PT and OT
Specialty Instructions: Weigh Daily- Call MD for wt gain/loss 3 lbs overnight/5 lbs in 1 week
Referrals:
Tianna Hearn DO [Family Provider] -
Prescriptions:
New
Xarelto 20 mg Tablet
20 mg PO QPM Qty: 30 0RF
Continued
simvastatin 10 MG tablet
10 mg PO HS
metoprolol succinate 25 mg Tablet Extended Release 24 Hr
25 mg PO DAILY
Rx Instructions:
10/07/2023, HOLD for HR<60.
methotrexate sodium 2.5 mg Tablet
20 mg PO TH@1700
folic acid 1 mg Tablet
1 mg PO BID
methenamine hippurate [Hiprex] 1 gram Tablet
1 g PO BID
omeprazole 20 mg Tablet,Delayed Release (Dr/Ec)
20 mg PO DAILY
magnesium hydroxide [Milk of Magnesia] 400 mg/5 mL Suspension
30 ml PO DAILY PRN (Reason: if no BM x 2 days)
bisacodyl [Dulcolax (bisacodyl)] 10 mg Suppository
10 mg IN DAILY PRN (Reason: if no BM in 8hr after MOM)
Fleet Enema 19-7 gram/118 mL Enema
118 ml IN DAILYPRN PRN (Reason: if no BM 8hr after supp. )
cholecalciferol (vitamin D3) 50 mcg (2,000 unit) Tablet
50 mcg PO DAILY
furosemide [Lasix] 40 mg tablet
40 mg PO DAILY PRN (Reason: weight gain )
Rx Instructions:
10/07/2023, (furosemide 40 mg PO DAILYPRN weight gain of 1-3 lbs/24 hours, 3-5 lbs/week).
dapagliflozin propanediol [Farxiga] 10 mg tablet
10 mg PO DAILY
Discontinued
Eliquis 2.5 mg Tablet
2.5 mg PO BID
lisinopril 2.5 mg tablet
2.5 mg PO DAILY
Discharge Orders:
Discharge Patient (As Directed); Ordered 10/11/23
Ordered By: Caleb Lemos
Discharge Date and Time
Discharge Date/Time: 10/11/23 17:21
--- NOTE | 2023-10-11 14:27 | W.DCSUMMARY ---
Discharge Summary
Discharge Data
Date of Admission: 10/09/23
Date of Discharge: 10/11/23
-
Pending Results: No
Hospital Course
Patient an 83-year-old female who presented to the [facility] from a long-term facility with lethargy, altered mental status and compensated blood pressure. She was evaluated in consultation with neurology and cardiology. CT scan of
the head showed no acute abnormalities and her MRI showed nonhemorrhagic foci of acute infarcts consistent with acute embolic CVA. Follow-up echocardiogram was consistent with an improved ejection fraction approximately 30 to 35% but no obvious LV
thrombus. She has been on Eliquis 2.5 mg twice daily for chronic lower extremity DVT. Given limitations with Eliquis dosing due to her age and weight, patient was transitioned to Xarelto for both DVT prophylaxis and concerns for undiagnosed A-fib.
She remained afebrile but however, with labile blood pressure going into the lower 70s SBP. Her lisinopril was subsequently held and she was monitored and improved hemodynamically within the next 24 hours. Her neurologic status significantly
improved with residual aphasia. Patient continued to tolerate Toprol and was continued on Xarelto while off JOLENE inhibitor. Mental status is currently at baseline and patient tolerated physical therapy.
Discharge Plan
-
Patient Disposition: Penitentiary/SNF
Discharge Diagnosis/Procedures: Acute CVA
Cardiomyopathy, nonischemic
Recent COVID-19 infection
Rheumatoid arthritis on immunosuppression with Remicade and methotrexate.
Essential hypertension
Type 2 diabetes.
GERD.
History of urine tract infection with E. coli.
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
Diet: Diabetic, Carb Controlled
Activity: As tolerated and With Walker
Driving Restrictions: As prior to admission
Bathing Restrictions: None
Other Services: PT and OT
Specialty Instructions: Weigh Daily- Call MD for wt gain/loss 3 lbs overnight/5 lbs in 1 week
Referrals:
Tianna Hearn DO [Family Provider] -
Prescriptions:
New
Xarelto 20 mg Tablet
20 mg PO QPM Qty: 30 0RF
Continued
simvastatin 10 MG tablet
10 mg PO HS
metoprolol succinate 25 mg Tablet Extended Release 24 Hr
25 mg PO DAILY
Rx Instructions:
10/07/2023, HOLD for HR<60.
methotrexate sodium 2.5 mg Tablet
20 mg PO TH@1700
folic acid 1 mg Tablet
1 mg PO BID
methenamine hippurate [Hiprex] 1 gram Tablet
1 g PO BID
omeprazole 20 mg Tablet,Delayed Release (Dr/Ec)
20 mg PO DAILY
magnesium hydroxide [Milk of Magnesia] 400 mg/5 mL Suspension
30 ml PO DAILY PRN (Reason: if no BM x 2 days)
bisacodyl [Dulcolax (bisacodyl)] 10 mg Suppository
10 mg [place] DAILY PRN (Reason: if no BM in 8hr after MOM)
Fleet Enema 19-7 gram/118 mL Enema
118 ml [place] DAILYPRN PRN (Reason: if no BM 8hr after supp. )
cholecalciferol (vitamin D3) 50 mcg (2,000 unit) Tablet
50 mcg PO DAILY
furosemide [Lasix] 40 mg tablet
40 mg PO DAILY PRN (Reason: weight gain )
Rx Instructions:
10/07/2023, (furosemide 40 mg PO DAILYPRN weight gain of 1-3 lbs/24 hours, 3-5 lbs/week).
dapagliflozin propanediol [Farxiga] 10 mg tablet
10 mg PO DAILY
Discontinued
Eliquis 2.5 mg Tablet
2.5 mg PO BID
lisinopril 2.5 mg tablet
2.5 mg PO DAILY
Discharge Orders:
Discharge Patient (As Directed); Ordered 10/11/23
Ordered By: Caleb Lemos
[2023-10-11 15:18] VITALS: BP 96/53
[2023-10-11 16:28] LABS: Glucose - Point of Care 82 mg/dl (70-99)
--- NOTE | 2023-10-11 16:41 | PTCARENOTE ---
report calledto [phone] to tigist burnette for this patient. pt changed into clothes and IV site was taken out prior to discharge.
--- NOTE | 2023-10-23 13:45 | HPS.HSE ---
Family Physician
-
Family Physician: Mallory Hearn DO
Chief Complaint
-
Altered mental status, weakness and aphasia.
History of Present Illness
Patient is an 83 years old female with past medical history of hypertension, DVT on Eliquis, DM, who presented to the ED for evaluation of altered mental status and lethargy. Patient was recently discharged to long-term facility for rehab
after diagnosis of acute hypoxic respiratory failure secondary to nonischemic cardiomyopathy, acute CHF. Patient is currently afebrile, hemodynamically stable with no apparent focal neurologic deficit. Her reports that she is increasingly
lethargic but was able to converse with him this morning without any difficulty. On examination, patient seems drowsy, but was easily aroused and was was only oriented to person and place but not time. Previous CT scan of the head showed no acute
abnormalities. Patient was also reported to have been aphasic with 'word salad' but the reports that she has been in and out for aphasia. Patient is scheduled to get a brain MRI without contrast and a carotid artery ultrasound today for
further evaluation.�Her basic metabolic panel, white count, urinalysis all within normal limits.
Medical History
Past Medical History
Past Medical History: Reports CAD, GERD, HTN and NIDDM
Past Surgical History: Reports Appendectomy, Cholecystectomy, Gynocological (Hysterectomy), Orthopedic (Right rotator cuff), Tonsilectomy, Urological (Lithotripsy) and Other (Hiatal hernia repair, left breast lumpectomy)
Social History
Tobacco: Non-smoker
Alcohol: None
Drug: None
Personal:
Living: With Family
Family History
Family History: Not pertinent
Allergies / Home Medications
Allergies reflects when Allergies were last updated in [facility].
Home Medications with original date entered in [facility]
Allergy/Medication List:
Allergies
Allergy/AdvReac Type Severity Reaction Status Date / Time
Iodinated Contrast Media Allergy Anaphylaxis Verified 09/26/23 20:58
[IV Dye, Iodine Containing
Contrast ]
iodine Allergy Anaphylaxis Verified 09/26/23 20:58
metformin Allergy vomiting,di Verified 09/26/23 20:58
arrhea
metformin HCl Allergy vomiting,di Verified 09/26/23 20:58
[From Glucophage] arrhea
tetracycline Allergy stomach Verified 09/26/23 20:58
pain
Home Medications
simvastatin 10 mg tablet 10 mg PO HS High cholesterol 02/12/12
folic acid 1 mg tablet 1 mg PO BID Supplement 03/07/22
methotrexate sodium 2.5 mg tablet 20 mg PO TH@1700 Autoimmune disorder 03/07/22
metoprolol succinate 25 mg tablet,extended release 24 hr 25 mg PO DAILY Blood pressure 03/07/22
apixaban 2.5 mg tablet (Eliquis) 2.5 mg PO BID Blood Clot Prevention/Tx 09/26/23
methenamine hippurate 1 gram tablet (Hiprex) 1 g PO BID Urinary Issue 09/26/23
omeprazole 20 mg tablet,delayed release 20 mg PO DAILY Gastrointestinal Issue 09/26/23
bisacodyl 10 mg rectal suppository (Dulcolax (bisacodyl)) 10 mg [place] DAILY PRN if no BM in 8hr after MOM 10/07/23
cholecalciferol (vitamin D3) 50 mcg (2,000 unit) tablet 50 mcg PO DAILY Supplement 10/07/23
dapagliflozin propanediol 10 mg tablet (Farxiga) 10 mg PO DAILY diabetes 10/07/23
furosemide 40 mg tablet (Lasix) 40 mg PO DAILY PRN weight gain 10/07/23
lisinopril 2.5 mg tablet 2.5 mg PO DAILY Blood Pressure 10/07/23
magnesium hydroxide 400 mg/5 mL oral suspension (Milk of Magnesia) 30 ml PO DAILY PRN if no BM x 2 days 10/07/23
sodium phosphates 19 gram-7 gram/118 mL enema (Fleet Enema) 118 ml [place] DAILYPRN PRN if no BM 8hr after supp. 10/07/23
Review of Systems
-
History Source: Patient and Family
A 12 point ROS was completed and negative except as noted: Yes
Physical Exam
Vital Signs
Vital Signs
Temp Pulse Resp BP Pulse Ox
97.4 F 90 18 96/53 96
10/11/23 15:18 10/11/23 15:18 10/11/23 15:18 10/11/23 15:18 10/11/23 15:18
Physical Exam
General: Well Developed, Well Nourished and No Apparent Distress
HEENT: NormoCephalic, Moist mucous membranes and Atraumatic
Respiratory: Clear
Cardiac: S1/S2 and Regular Rhythm; No Murmur or Rub
GI: Soft, Non Tender, Non Distended and Normal Bowel Sounds; No Organomegaly
Rectal: Deferred by Provider
Musculoskeletal: No Clubbing, No Cyanosis and No Edema
Skin: No Rash
Neuro: Awake, Alert, Oriented, AO x 3 and Nonfocal/grossly intact
Psych: Calm
Laboratory Results
-
10/07/23 11:33
10/07/23 11:33
Laboratory Results
Total Bilirubin Cancelled 10/07/23 11:33
AST Cancelled 10/07/23 11:33
ALT Cancelled 10/07/23 11:33
Alkaline Phosphatase Cancelled 10/07/23 11:33
Data Reviewed
-
CT Scan: Report Reviewed by me
Lab Data: Labs Reviewed by me
Impression/Plan
-
IMPRESSION:
Presentation with altered mental status with episode of less responsiveness and lethargy, aphasia acute versus chronic.
Conditions prior to admission:
Cardiomyopathy, nonischemic
Recent COVID-19 infection
Rheumatoid arthritis on immunosuppression with Remicade and methotrexate.
Essential hypertension
Type 2 diabetes.
GERD.
History of urine tract infection with E. coli.
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
PLAN:
Presentation with altered mental status with episode of less responsiveness and lethargy, aphasia acute versus chronic.
-Brain MRI findings today consistent with embolic CVA.
-Patient with no prior history of confirmed arrhythmia.
-Echocardiogram with No obvious LV thrombus.
-Carotid ultrasound with Mild calcified plaque right�common carotid artery and carotid bifurcation. Velocity profiles consistent with less than 50% bilateral internal carotid arteries. Antegrade flow bilateral vertebral arteries.
-CT scan of the head with no acute abnormalities.
-Initial evaluation was not consistent with infection.�Afebrile, urinalysis unremarkable stable respiratory status with recent chest x-ray showed improved bilateral infiltrates attributed to pulmonary edema
-No focal neurological findings on exam.
-Cardiology input appreciated
-On Eliquis 2.5 mg twice daily for DVT prophylaxis
-Transition to Xarelto 20 mg once daily given with fluctuations and normal kidney function
-Telemetry monitoring
-Neurology input appreciated
-Patient too weak for orthostasis
-Physical/Occupational Therapy evaluation
Recent diagnosis of nonischemic cardiomyopathy.
-LVEF improved from 25-30% to 30-35%, TR has improved and is now mild, with no obvious LV thrombus.
-Cardiac cath with no evidence of CAD lesions to overt nonischemic cardiomyopathy, although possible SCAD less likely
-Recently diuresed with now compensated volume status.� Dry weight down to 59.6 kg, previously 61 kg
-Noted marginal blood pressure
-Continue metoprolol.
-Hold lisinopril.
-Continue Farxiga
-Hold Lasix monitoring volume status and weight closely
-Orthostatic vitals.
Diabetes type 2.� Recent hemoglobin A1c 6.1
-Recently on Ozempic with reported poor tolerance including nausea and vomiting and decreased oral intake
-Continue sliding scale
-Monitor blood glucose avoiding hypoglycemia
-Continue Farxiga recently initiated for this and as a part of GDMT.
Chronic lower extremity DVT
-Start Xarelto
Rheumatoid arthritis on Remicade and methotrexate prior to admission.
== END 2023-10-11 17:21 | DRG 65 ==
LOC: 2 NORTH 08:41
PROVIDERS: Physician Assistant; ADMITTING PHYSICIAN Internal Medicine; CONSULT PHYSICIAN Internal Medicine Cardiovascular Disease; CONSULT PHYSICIAN Psychiatry & Neurology Neurology; EMERGENCY PHYSICIAN Emergency Medicine; FAMILY PHYSICIAN Student in an Organized Health Care Education/Training Program; REFERRING PHYSICIAN Family Medicine
DX: I63.9 Cerebral infarction, unspecified (principal); D84.821 Immunodeficiency due to drugs; I50.22 Chronic systolic (congestive) heart failure; I42.8 Other cardiomyopathies; I48.91 Unspecified atrial fibrillation; Z79.01 Long term (current) use of anticoagulants; I11.0 Hypertensive heart disease with heart failure; E11.9 Type 2 diabetes mellitus without complications; Z86.16 Personal history of COVID-19; Z79.620 Long term (current) use of immunosuppressive biologic; M06.9 Rheumatoid arthritis, unspecified; K21.9 Gastro-esophageal reflux disease without esophagitis; C55 Malignant neoplasm of uterus, part unspecified
CPT/HCPCS: 93308; 70450; 70551; 80048; 80061; 81003; 81015; 82962; 85025; 87040; 92523; 93005; 93321; 93325; 93880; 95816; 97116; 97163; 97166; 97530; 97535; 99285; Q9950

== ENCOUNTER → 2023-10-15 10:43 | Outpatient (REF) | payer MEDICARE, OTHER, SELFPAY ==
[2023-10-15 11:32] LABS: % Basophils 0.8 % (0-2); % Eosinophils 2.9 % (0-6); % Immature Granulocytes 0.2 % (0-0.5); % Lymphocytes 52.1 % (20.5-51.1); % Monocytes 6.5 % (1.7-9.3); % Neutrophils 37.5 % (42.2-75.2); Absolute Basophils 0.1 10^3/uL (0-0.2); Absolute Eosinophils 0.2 10^3/uL (0-0.7); Absolute Lymphocytes 4.4 10^3/uL (1.2-3.4); Absolute Monocytes 0.6 10^3/uL (0.1-0.6); Absolute Neutrophils 3.2 10^3/uL (1.4-6.5); Hematocrit 39.9 % (37.0-47.0); Hemoglobin 13.7 g/dL (12.0-16.0); Mean Corp Hgb Conc. 34.3 g/dL (33.0-37.0); Mean Corpuscular Hgb 33.6 pg (27.0-31.0); Mean Corpuscular Volume 97.8 fL (81.0-99.0); Mean Platelet Volume 10.1 fL (7.4-10.4); Nucleated Red Blood Cells % 0 %; Platelet Count 246 10^3/uL (130-400); Red Blood Cell Count 4.08 10^6/uL (4.20-5.40); Red Cell Dist. Width 13.9 % (11.5-14.5); White Blood Cell Count 8.4 10^3/uL (4.8-10.8)
[2023-10-15 11:50] LABS: Blood Urea Nitrogen 11 mg/dl (7-17); Calcium 8.3 mg/dl (8.4-10.2); Carbon Dioxide 24 mmol/L (22-30); Chloride 101 mmol/L (98-107); Glucose 124 mg/dl (70-99); Potassium 3.2 mmol/L (3.5-5.1); Sodium 134 mmol/L (135-145); eGFR > 60.00
== END ==
LOC: OLABP 10:43
PROVIDERS: ATTENDING PHYSICIAN Family Medicine
DX: I50.9 Heart failure, unspecified (principal); E11.9 Type 2 diabetes mellitus without complications; M62.81 Muscle weakness (generalized); R26.2 Difficulty in walking, not elsewhere classified; R42 Dizziness and giddiness; E78.5 Hyperlipidemia, unspecified; M81.0 Age-related osteoporosis without current pathological fracture; M06.9 Rheumatoid arthritis, unspecified; K21.9 Gastro-esophageal reflux disease without esophagitis; Z85.42 Personal history of malignant neoplasm of other parts of uterus; I63.9 Cerebral infarction, unspecified; I69.320 Aphasia following cerebral infarction; I69.392 Facial weakness following cerebral infarction; I42.8 Other cardiomyopathies
CPT/HCPCS: 36415; 80048; 85025

== ENCOUNTER → 2023-10-17 12:56 | Outpatient (REF) | payer OTHER, MEDICARE, SELFPAY ==
[2023-10-17 13:46] LABS: Blood Urea Nitrogen 12 mg/dl (7-17); Calcium 7.9 mg/dl (8.4-10.2); Carbon Dioxide 25 mmol/L (22-30); Chloride 106 mmol/L (98-107); Glucose 129 mg/dl (70-99); Magnesium 1.7 mg/dl (1.6-2.3); Potassium 3.4 mmol/L (3.5-5.1); Sodium 134 mmol/L (135-145); eGFR > 60.00
== END ==
LOC: OLABP 12:56
PROVIDERS: ATTENDING PHYSICIAN Family Medicine
DX: I50.9 Heart failure, unspecified (principal); E11.9 Type 2 diabetes mellitus without complications; M62.81 Muscle weakness (generalized); R26.2 Difficulty in walking, not elsewhere classified; R42 Dizziness and giddiness; E78.5 Hyperlipidemia, unspecified; M81.0 Age-related osteoporosis without current pathological fracture; M06.9 Rheumatoid arthritis, unspecified; K21.9 Gastro-esophageal reflux disease without esophagitis; Z85.42 Personal history of malignant neoplasm of other parts of uterus; I63.9 Cerebral infarction, unspecified; I69.320 Aphasia following cerebral infarction; I69.392 Facial weakness following cerebral infarction; I42.8 Other cardiomyopathies
CPT/HCPCS: 36415; 80048; 83735

== ENCOUNTER → 2023-10-21 13:00 | Outpatient (REF) | payer OTHER, MEDICARE, SELFPAY ==
[2023-10-21 13:39] LABS: Blood Urea Nitrogen 10 mg/dl (7-17); Calcium 8.2 mg/dl (8.4-10.2); Carbon Dioxide 23 mmol/L (22-30); Chloride 107 mmol/L (98-107); Glucose 116 mg/dl (70-99); Potassium 4.1 mmol/L (3.5-5.1); Sodium 136 mmol/L (135-145); eGFR > 60.00
== END ==
LOC: OLABP 13:00
PROVIDERS: ATTENDING PHYSICIAN Family Medicine
DX: I50.9 Heart failure, unspecified (principal); M62.81 Muscle weakness (generalized); R26.2 Difficulty in walking, not elsewhere classified; R42 Dizziness and giddiness; E78.5 Hyperlipidemia, unspecified; I69.320 Aphasia following cerebral infarction; K21.9 Gastro-esophageal reflux disease without esophagitis
CPT/HCPCS: 36415; 80048

== ENCOUNTER → 2023-10-25 09:10 | Outpatient (REF) | payer OTHER, MEDICARE, SELFPAY ==
[2023-10-25 10:14] LABS: % Basophils 0.9 % (0-2); % Eosinophils 4.3 % (0-6); % Immature Granulocytes 0.1 % (0-0.5); % Lymphocytes 45.8 % (20.5-51.1); % Monocytes 10.3 % (1.7-9.3); % Neutrophils 38.6 % (42.2-75.2); Absolute Basophils 0.1 10^3/uL (0-0.2); Absolute Eosinophils 0.3 10^3/uL (0-0.7); Absolute Lymphocytes 3.6 10^3/uL (1.2-3.4); Absolute Monocytes 0.8 10^3/uL (0.1-0.6); Absolute Neutrophils 3.1 10^3/uL (1.4-6.5); Hematocrit 38.1 % (37.0-47.0); Hemoglobin 12.8 g/dL (12.0-16.0); Mean Corp Hgb Conc. 33.6 g/dL (33.0-37.0); Mean Corpuscular Volume 98.2 fL (81.0-99.0); Mean Platelet Volume 9.9 fL (7.4-10.4); Nucleated Red Blood Cells % 0 %; Platelet Count 203 10^3/uL (130-400); Red Blood Cell Count 3.88 10^6/uL (4.20-5.40); Red Cell Dist. Width 14.4 % (11.5-14.5); White Blood Cell Count 7.9 10^3/uL (4.8-10.8)
[2023-10-25 10:21] LABS: Blood Urea Nitrogen 11 mg/dl (7-17); Calcium 8.5 mg/dl (8.4-10.2); Carbon Dioxide 26 mmol/L (22-30); Chloride 105 mmol/L (98-107); Glucose 137 mg/dl (70-99); Potassium 4.1 mmol/L (3.5-5.1); Sodium 135 mmol/L (135-145); eGFR > 60.00
== END ==
LOC: OLABP 09:10
PROVIDERS: ATTENDING PHYSICIAN Family Medicine
DX: R42 Dizziness and giddiness (principal); E11.9 Type 2 diabetes mellitus without complications; M62.81 Muscle weakness (generalized); R26.2 Difficulty in walking, not elsewhere classified; I63.9 Cerebral infarction, unspecified; I69.320 Aphasia following cerebral infarction
CPT/HCPCS: 36415; 80048; 85025

== ENCOUNTER → 2023-11-27 11:43 | Outpatient (REF) | payer OTHER, MEDICARE, SELFPAY ==
[2023-11-27 12:04] LABS: Mean Corp Hgb Conc. 33.3 g/dL (33.0-37.0); Mean Corpuscular Hgb 32.8 pg (27.0-31.0); Mean Corpuscular Volume 98.5 fL (81.0-99.0); Mean Platelet Volume 9.5 fL (7.4-10.4); Platelet Count 305 10^3/uL (130-400); Red Blood Cell Count 3.35 10^6/uL (4.20-5.40); Red Cell Dist. Width 14.4 % (11.5-14.5); White Blood Cell Count 5.9 10^3/uL (4.8-10.8)
[2023-11-27 12:34] LABS: Blood Urea Nitrogen 7 mg/dl (7-17); Calcium 8.2 mg/dl (8.4-10.2); Carbon Dioxide 26 mmol/L (22-30); Chloride 101 mmol/L (98-107); Glucose 94 mg/dl (70-99); Magnesium 1.7 mg/dl (1.6-2.3); Potassium 3.2 mmol/L (3.5-5.1); Sodium 134 mmol/L (135-145); eGFR > 60.00
[2023-11-27 13:04] LABS: TSH 0.91 uIU/ml (0.47-4.68)
[2023-11-27 14:25] LABS: Glycohemoglobin (HgbA1c) 6.3 % (4.0-5.6)
== END ==
LOC: OLABN 11:43
PROVIDERS: ATTENDING PHYSICIAN Student in an Organized Health Care Education/Training Program
DX: I50.20 Unspecified systolic (congestive) heart failure (principal); E11.9 Type 2 diabetes mellitus without complications
CPT/HCPCS: 36415; 80048; 83036; 83735; 84443; 85027

== ENCOUNTER → 2023-12-02 12:42 | Outpatient (REF) | payer OTHER, MEDICARE, SELFPAY ==
[2023-12-02 13:46] LABS: Blood Urea Nitrogen 7 mg/dl (7-17); Calcium 8.2 mg/dl (8.4-10.2); Carbon Dioxide 26 mmol/L (22-30); Chloride 103 mmol/L (98-107); Glucose 90 mg/dl (70-99); Sodium 136 mmol/L (135-145); eGFR > 60.00
[2023-12-02 13:51] LABS: Potassium 3.3 mmol/L (3.5-5.1)
== END ==
LOC: OLABN 12:42
PROVIDERS: ATTENDING PHYSICIAN Student in an Organized Health Care Education/Training Program
DX: E87.6 Hypokalemia (principal)
CPT/HCPCS: 36415; 80048

== ENCOUNTER → 2023-12-18 11:58 | Outpatient (REF) | payer OTHER, MEDICARE, SELFPAY ==
[2023-12-18 12:34] LABS: Blood Urea Nitrogen 7 mg/dl (7-17); Calcium 8.5 mg/dl (8.4-10.2); Carbon Dioxide 28 mmol/L (22-30); Chloride 105 mmol/L (98-107); Glucose 85 mg/dl (70-99); Magnesium 1.9 mg/dl (1.6-2.3); Potassium 3.8 mmol/L (3.5-5.1); Sodium 137 mmol/L (135-145); eGFR > 60.00
== END ==
LOC: OLABN 11:58
PROVIDERS: ATTENDING PHYSICIAN Student in an Organized Health Care Education/Training Program
DX: E87.6 Hypokalemia (principal)
CPT/HCPCS: 36415; 80048; 83735

== ENCOUNTER → 2024-01-24 08:11 | Outpatient (REF) | payer MEDICARE, OTHER, SELFPAY ==
[2024-01-24 10:17] LABS: % Basophils 0.8 % (0-2); % Eosinophils 2.9 % (0-6); % Immature Granulocytes 0.1 % (0-0.5); % Lymphocytes 27.6 % (20.5-51.1); % Monocytes 7.7 % (1.7-9.3); % Neutrophils 60.9 % (42.2-75.2); Absolute Basophils 0.1 10^3/uL (0-0.2); Absolute Eosinophils 0.2 10^3/uL (0-0.7); Absolute Lymphocytes 2.1 10^3/uL (1.2-3.4); Absolute Monocytes 0.6 10^3/uL (0.1-0.6); Absolute Neutrophils 4.7 10^3/uL (1.4-6.5); Hematocrit 41.9 % (37.0-47.0); Hemoglobin 13.5 g/dL (12.0-16.0); Mean Corp Hgb Conc. 32.2 g/dL (33.0-37.0); Mean Corpuscular Hgb 32.8 pg (27.0-31.0); Mean Corpuscular Volume 101.7 fL (81.0-99.0); Mean Platelet Volume 9.5 fL (7.4-10.4); Nucleated Red Blood Cells % 0 %; Platelet Count 241 10^3/uL (130-400); Red Blood Cell Count 4.12 10^6/uL (4.20-5.40); Red Cell Dist. Width 13.6 % (11.5-14.5); White Blood Cell Count 7.7 10^3/uL (4.8-10.8)
[2024-01-24 10:53] LABS: ALT (SGPT) 10 U/L (0-35); AST (SGOT) 26 U/L (14-36); Albumin 3.4 g/dl (3.5-5.0); Alkaline Phosphatase 79 U/L (38-126); Blood Urea Nitrogen 7 mg/dl (7-17); Calcium 8.9 mg/dl (8.4-10.2); Carbon Dioxide 27 mmol/L (22-30); Chloride 109 mmol/L (98-107); Glucose 81 mg/dl (70-99); Potassium 4.2 mmol/L (3.5-5.1); Sodium 141 mmol/L (135-145); Total Bilirubin 0.5 mg/dl (0.2-1.3); Total Protein 6.3 g/dl (6.3-8.2); eGFR > 60.00
[2024-01-24 11:59] LABS: Glycohemoglobin (HgbA1c) 5.9 % (4.0-5.6)
== END ==
LOC: HWLAB 08:11
PROVIDERS: ATTENDING PHYSICIAN Internal Medicine
DX: E11.9 Type 2 diabetes mellitus without complications (principal); Z79.4 Long term (current) use of insulin; M06.9 Rheumatoid arthritis, unspecified; K21.9 Gastro-esophageal reflux disease without esophagitis; Z86.718 Personal history of other venous thrombosis and embolism
CPT/HCPCS: 36415; 80053; 83036; 85025

== ENCOUNTER → 2024-02-11 14:33 | Outpatient (REF) | payer MEDICARE, OTHER, SELFPAY ==
[2024-02-12 19:23] LABS: Urine Albumin Trace (Neg - Trace); Urine Bilirubin Negative (Negative); Urine Character Very Cloudy (Clear); Urine Color Yellow; Urine Glucose 3+ (Negative); Urine Ketone Trace (Negative); Urine Leukocyte 2+ (Negative); Urine Nitrite Positive (Negative); Urine Occult Blood Trace (Negative); Urine Urobilinogen Negative (Neg - 1+)
[2024-02-12 20:01] LABS: Urine Bacteria Moderate (Negative); Urine Red Blood Cell 0-2 /HPF (0-2)
== END ==
LOC: CLAB 14:33
PROVIDERS: ATTENDING PHYSICIAN Nurse Practitioner
DX: N39.0 Urinary tract infection, site not specified (principal)
CPT/HCPCS: 81003; 81015; 87077; 87086

== ENCOUNTER → 2024-02-17 12:30 | Outpatient (REF) | payer MEDICARE, OTHER, SELFPAY ==
--- NOTE | 2024-02-17 14:36 | CARDSERVLU ---
Echocardiogram with Lumason completed after protocol screening completed. Allergies verified.
Patent IV site: ___Rt AC__
IV site flushed with 0.9% NaCl pre and post administration.
Diluted bolus method utilized to enhance visualization of ventricular horvath.
Total volume given: _2.5_ mL
Patient tolerated all procedures well without complications.
#22 ángel started Rt AC. Lumason given and dsg applied. pressure held. No bleeding noted.
== END ==
LOC: RCS 12:30
PROVIDERS: ATTENDING PHYSICIAN Nurse Practitioner Gerontology; FAMILY PHYSICIAN Internal Medicine
DX: I50.20 Unspecified systolic (congestive) heart failure (principal)
CPT/HCPCS: 93306; Q9950

== ENCOUNTER → 2024-02-28 08:38 | Outpatient (REF) | payer MEDICARE, OTHER, SELFPAY ==
[2024-02-28 12:08] LABS: Blood Urea Nitrogen 12 mg/dl (7-17); Calcium 9.6 mg/dl (8.4-10.2); Carbon Dioxide 25 mmol/L (22-30); Chloride 108 mmol/L (98-107); Glucose 106 mg/dl (70-99); Potassium 4.1 mmol/L (3.5-5.1); Sodium 141 mmol/L (135-145); eGFR > 60.00
== END ==
LOC: HWLAB 08:38
PROVIDERS: ATTENDING PHYSICIAN Internal Medicine
DX: R73.9 Hyperglycemia, unspecified (principal)
CPT/HCPCS: 36415; 80048

== ENCOUNTER → 2024-05-11 04:00 | Outpatient (REF) | payer MEDICARE, OTHER, SELFPAY | LOC: DHSLP 04:00 | PROVIDERS: ATTENDING PHYSICIAN Psychiatry & Neurology Neurology; FAMILY PHYSICIAN Internal Medicine | DX: G47.33 Obstructive sleep apnea (adult) (pediatric) (principal) | CPT/HCPCS: 95800 ==

== ENCOUNTER → 2024-06-19 07:43 | Outpatient (REF) | payer MEDICARE, OTHER, SELFPAY | LOC: WDC 07:43 | PROVIDERS: ATTENDING PHYSICIAN Internal Medicine | DX: Z12.31 Encounter for screening mammogram for malignant neoplasm of breast (principal) | CPT/HCPCS: 77063; 77067 ==

== ENCOUNTER → 2024-07-30 08:20 | Outpatient (REF) | payer MEDICARE, OTHER, SELFPAY ==
[2024-07-30 12:26] LABS: % Basophils 0.9 % (0-2); % Eosinophils 3.6 % (0-6); % Immature Granulocytes 0.3 % (0-0.5); % Monocytes 10.9 % (1.7-9.3); % Neutrophils 54.3 % (42.2-75.2); Absolute Basophils 0.1 10^3/uL (0-0.2); Absolute Eosinophils 0.2 10^3/uL (0-0.7); Absolute Lymphocytes 1.7 10^3/uL (1.2-3.4); Absolute Monocytes 0.6 10^3/uL (0.1-0.6); Absolute Neutrophils 3.1 10^3/uL (1.4-6.5); Hematocrit 44.4 % (37.0-47.0); Hemoglobin 14.7 g/dL (12.0-16.0); Mean Corp Hgb Conc. 33.1 g/dL (33.0-37.0); Mean Corpuscular Hgb 33.9 pg (27.0-31.0); Mean Corpuscular Volume 102.3 fL (81.0-99.0); Mean Platelet Volume 9.4 fL (7.4-10.4); Nucleated Red Blood Cells % 0 %; Platelet Count 243 10^3/uL (130-400); Red Blood Cell Count 4.34 10^6/uL (4.20-5.40); Red Cell Dist. Width 14.5 % (11.5-14.5); White Blood Cell Count 5.8 10^3/uL (4.8-10.8)
[2024-07-30 12:37] LABS: ALT (SGPT) 16 U/L (0-35); AST (SGOT) 25 U/L (14-36); Albumin 3.9 g/dl (3.5-5.0); Alkaline Phosphatase 82 U/L (38-126); Blood Urea Nitrogen 11 mg/dl (7-17); Calcium 8.5 mg/dl (8.4-10.2); Carbon Dioxide 29 mmol/L (22-30); Chloride 107 mmol/L (98-107); Glucose 113 mg/dl (70-99); HDL Cholesterol 52 mg/dl; LDL Cholesterol, Calculated 117 mg/dl; Potassium 4.1 mmol/L (3.5-5.1); Sodium 143 mmol/L (135-145); Total Bilirubin 0.4 mg/dl (0.2-1.3); Total Cholesterol 196 mg/dl (50-199); Total Protein 6.5 g/dl (6.3-8.2); Triglyceride 139 mg/dl (10-149); Very Low Density Lipoprotein 27 mg/dl (0-30); eGFR > 60.00
[2024-07-30 12:53] LABS: Microalbumin, Random Urine 1.3 mg/dl (0.6-1.7); Microalbumin/creatinine Ratio 12.1 mg/g
[2024-07-30 14:27] LABS: Glycohemoglobin (HgbA1c) 5.6 % (4.0-5.6)
== END ==
LOC: HWLAB 08:20
PROVIDERS: ATTENDING PHYSICIAN Internal Medicine
DX: E11.9 Type 2 diabetes mellitus without complications (principal); E78.2 Mixed hyperlipidemia; R71.8 Other abnormality of red blood cells; Z86.73 Personal history of transient ischemic attack (TIA), and cerebral infarction without residual deficits
CPT/HCPCS: 36415; 80053; 80061; 82043; 82570; 83036; 85025

== ENCOUNTER → 2024-11-12 15:08 | Outpatient (REF) | payer MEDICARE, OTHER, SELFPAY | LOC: CLAB 15:08 | PROVIDERS: ATTENDING PHYSICIAN Nurse Practitioner | DX: N39.0 Urinary tract infection, site not specified (principal) | CPT/HCPCS: 87077; 87086; 87147 ==

== ENCOUNTER 2024-12-22 06:28 | Outpatient (RCR) | payer MEDICARE, OTHER, SELFPAY | END 2024-12-22 23:59 | disposition home or self-care (01) | LOC: RST 06:28 | PROVIDERS: ATTENDING PHYSICIAN Psychiatry & Neurology Neurology | DX: I69.311 Memory deficit following cerebral infarction (principal); I69.318 Other symptoms and signs involving cognitive functions following cerebral infarction; I69.328 Other speech and language deficits following cerebral infarction; I69.354 Hemiplegia and hemiparesis following cerebral infarction affecting left non-dominant side; Z73.6 Limitation of activities due to disability | CPT/HCPCS: 96125; 97129; 97130 ==

== ENCOUNTER → 2025-01-06 11:25 | Outpatient (REF) | payer MEDICARE, OTHER, SELFPAY ==
[2025-01-06 16:08] LABS: % Basophils 0.8 % (0-2); % Immature Granulocytes 0.3 % (0-0.5); % Lymphocytes 19.5 % (20.5-51.1); % Monocytes 8.3 % (1.7-9.3); % Neutrophils 67.1 % (42.2-75.2); Absolute Basophils 0.1 10^3/uL (0-0.2); Absolute Eosinophils 0.3 10^3/uL (0-0.7); Absolute Lymphocytes 1.5 10^3/uL (1.2-3.4); Absolute Monocytes 0.6 10^3/uL (0.1-0.6); Hematocrit 40.1 % (37.0-47.0); Hemoglobin 13.8 g/dL (12.0-16.0); Mean Corp Hgb Conc. 34.4 g/dL (33.0-37.0); Mean Corpuscular Hgb 34.7 pg (27.0-31.0); Mean Corpuscular Volume 100.8 fL (81.0-99.0); Mean Platelet Volume 9.8 fL (7.4-10.4); Nucleated Red Blood Cells % 0 %; Platelet Count 260 10^3/uL (130-400); Red Blood Cell Count 3.98 10^6/uL (4.20-5.40); Red Cell Dist. Width 13.4 % (11.5-14.5); White Blood Cell Count 7.5 10^3/uL (4.8-10.8)
[2025-01-06 16:16] LABS: ALT (SGPT) 18 U/L (0-35); AST (SGOT) 22 U/L (14-36); Albumin 3.5 g/dl (3.5-5.0); Alkaline Phosphatase 74 U/L (38-126); Blood Urea Nitrogen 15 mg/dl (7-17); Calcium 9.4 mg/dl (8.4-10.2); Carbon Dioxide 27 mmol/L (22-30); Chloride 106 mmol/L (98-107); Glucose 159 mg/dl (70-99); Potassium 4.1 mmol/L (3.5-5.1); Sodium 138 mmol/L (135-145); Total Bilirubin 0.5 mg/dl (0.2-1.3); Total Protein 6.4 g/dl (6.3-8.2); eGFR > 60.00
[2025-01-06 16:34] LABS: Erythrocyte Sed Rate 41 mm/hour (0-20)
== END ==
LOC: HWLAB 11:25
PROVIDERS: ATTENDING PHYSICIAN Internal Medicine Rheumatology; FAMILY PHYSICIAN Internal Medicine
DX: M06.00 Rheumatoid arthritis without rheumatoid factor, unspecified site (principal); M19.041 Primary osteoarthritis, right hand; M81.0 Age-related osteoporosis without current pathological fracture; N39.0 Urinary tract infection, site not specified; Z51.81 Encounter for therapeutic drug level monitoring
CPT/HCPCS: 36415; 80053; 85025; 85652; 86140

== ENCOUNTER 2025-01-20 16:27 | Outpatient (RCR) | payer MEDICARE, OTHER, SELFPAY | END 2025-01-20 23:59 | disposition home or self-care (01) | LOC: ROT 16:27 | PROVIDERS: ATTENDING PHYSICIAN Psychiatry & Neurology Neurology | DX: I69.311 Memory deficit following cerebral infarction (principal); I69.318 Other symptoms and signs involving cognitive functions following cerebral infarction; I69.328 Other speech and language deficits following cerebral infarction; I69.354 Hemiplegia and hemiparesis following cerebral infarction affecting left non-dominant side; Z73.6 Limitation of activities due to disability | CPT/HCPCS: 97129; 97130 ==

== ENCOUNTER 2025-02-18 15:39 | Outpatient (RCR) | payer MEDICARE, OTHER, SELFPAY | END 2025-02-18 23:59 | disposition home or self-care (01) | LOC: ROT 15:39 | PROVIDERS: ATTENDING PHYSICIAN Psychiatry & Neurology Neurology | DX: I69.311 Memory deficit following cerebral infarction (principal); I69.318 Other symptoms and signs involving cognitive functions following cerebral infarction; I69.328 Other speech and language deficits following cerebral infarction; I69.354 Hemiplegia and hemiparesis following cerebral infarction affecting left non-dominant side; Z73.6 Limitation of activities due to disability; G30.9 Alzheimer's disease, unspecified | CPT/HCPCS: 97110; 97129; 97130; 97167; 97530; 97535 ==

== ENCOUNTER → 2025-02-23 07:18 | Outpatient (REF) | payer MEDICARE, OTHER, SELFPAY ==
[2025-02-23 09:30] LABS: Hematocrit 38.6 % (37.0-47.0); Hemoglobin 13.2 g/dL (12.0-16.0); Mean Corp Hgb Conc. 34.2 g/dL (33.0-37.0); Mean Corpuscular Volume 100.5 fL (81.0-99.0); Nucleated Red Blood Cells % 0 %; Platelet Count 281 10^3/uL (130-400); Red Cell Dist. Width 13.2 % (11.5-14.5)
[2025-02-23 09:49] LABS: ALT (SGPT) 20 U/L (0-35); AST (SGOT) 20 U/L (14-36); Albumin 3.7 g/dl (3.5-5.0); Alkaline Phosphatase 83 U/L (38-126); Blood Urea Nitrogen 22 mg/dl (7-17); Calcium 9.1 mg/dl (8.4-10.2); Carbon Dioxide 24 mmol/L (22-30); Chloride 109 mmol/L (98-107); Glucose 135 mg/dl (70-99); HDL Cholesterol 41 mg/dl; LDL Cholesterol, Calculated 41 mg/dl; Potassium 3.9 mmol/L (3.5-5.1); Sodium 141 mmol/L (135-145); Total Protein 6.2 g/dl (6.3-8.2); Very Low Density Lipoprotein 16 mg/dl (0-30); eGFR > 60.00
[2025-02-23 10:51] LABS: Folate > 20.0 ng/ml (2.76-20); Vitamin B12 218 pg/ml (239-931)
[2025-02-23 11:54] LABS: Glycohemoglobin (HgbA1c) 6.7 % (4.0-5.6)
== END ==
LOC: HWLAB 07:18
PROVIDERS: ATTENDING PHYSICIAN Internal Medicine; FAMILY PHYSICIAN Internal Medicine; REFERRING PHYSICIAN Psychiatry & Neurology Neurology
DX: E78.00 Pure hypercholesterolemia, unspecified (principal); I50.32 Chronic diastolic (congestive) heart failure; Z86.73 Personal history of transient ischemic attack (TIA), and cerebral infarction without residual deficits; E11.9 Type 2 diabetes mellitus without complications; E78.2 Mixed hyperlipidemia; R71.8 Other abnormality of red blood cells; Z86.718 Personal history of other venous thrombosis and embolism; N39.0 Urinary tract infection, site not specified; M06.9 Rheumatoid arthritis, unspecified; M81.0 Age-related osteoporosis without current pathological fracture; I25.42 Coronary artery dissection; R53.82 Chronic fatigue, unspecified; I10 Essential (primary) hypertension
CPT/HCPCS: 36415; 80053; 80061; 82607; 82746; 83036; 85025

== ENCOUNTER → 2025-03-18 16:23 | Outpatient (REF) | payer MEDICARE, OTHER, SELFPAY ==
[2025-03-18 16:43] LABS: Urine Character Slightly Cloudy (Clear)
[2025-03-18 16:53] LABS: Urine Squamous Cell >30 /LPF (Few)
== END ==
LOC: REG 16:23
PROVIDERS: ATTENDING PHYSICIAN Nurse Practitioner
DX: N39.0 Urinary tract infection, site not specified (principal)
CPT/HCPCS: 81003; 81015; 87086

== ENCOUNTER 2025-03-25 15:20 | Outpatient (RCR) | payer MEDICARE, OTHER, SELFPAY | END 2025-03-25 23:59 | disposition home or self-care (01) | LOC: ROT 15:20 | PROVIDERS: ATTENDING PHYSICIAN Psychiatry & Neurology Neurology | DX: I69.311 Memory deficit following cerebral infarction (principal); I69.318 Other symptoms and signs involving cognitive functions following cerebral infarction; I69.328 Other speech and language deficits following cerebral infarction; I69.354 Hemiplegia and hemiparesis following cerebral infarction affecting left non-dominant side; Z73.6 Limitation of activities due to disability; G30.9 Alzheimer's disease, unspecified | CPT/HCPCS: 97110; 97530; 97535 ==

== ENCOUNTER 2025-04-22 11:23 | Outpatient (RCR) | payer MEDICARE, OTHER, SELFPAY | END 2025-04-22 23:59 | disposition home or self-care (01) | LOC: ROT 11:23 | PROVIDERS: ATTENDING PHYSICIAN Psychiatry & Neurology Neurology | DX: I69.311 Memory deficit following cerebral infarction (principal); I69.318 Other symptoms and signs involving cognitive functions following cerebral infarction; I69.328 Other speech and language deficits following cerebral infarction; I69.354 Hemiplegia and hemiparesis following cerebral infarction affecting left non-dominant side; Z73.6 Limitation of activities due to disability; G30.9 Alzheimer's disease, unspecified; F02.82 Dementia in other diseases classified elsewhere, unspecified severity, with psychotic disturbance | CPT/HCPCS: 97110; 97112; 97116; 97163; 97530; 97535 ==

== ENCOUNTER → 2025-05-20 11:00 | Outpatient (REF) | payer MEDICARE, OTHER, SELFPAY | LOC: HWRAD 11:00 | PROVIDERS: ATTENDING PHYSICIAN Internal Medicine Rheumatology; FAMILY PHYSICIAN Internal Medicine | DX: M81.0 Age-related osteoporosis without current pathological fracture (principal); Z13.820 Encounter for screening for osteoporosis | CPT/HCPCS: 77080 ==

== ENCOUNTER → 2025-06-04 12:57 | Outpatient (REF) | payer MEDICARE, OTHER, SELFPAY | LOC: HWRCS 12:57 | PROVIDERS: ATTENDING PHYSICIAN Internal Medicine; FAMILY PHYSICIAN Internal Medicine | DX: I42.8 Other cardiomyopathies (principal); I50.32 Chronic diastolic (congestive) heart failure; I25.42 Coronary artery dissection; I35.1 Nonrheumatic aortic (valve) insufficiency; I34.2 Nonrheumatic mitral (valve) stenosis | CPT/HCPCS: 93306 ==

== ENCOUNTER 2025-06-24 17:03 | Emergency (ER) | payer MEDICARE, OTHER, SELFPAY ==
[2025-06-24 17:05] VITALS: BP 135/71
--- NOTE | 2025-06-24 17:59 | ED.GENMED ---
History of Present Illness
General
Chief Complaint: Fall
Source: patient and spouse
Time Seen by Provider: 06/24/25 17:27
History of Present Illness
History of Present Illness:
85-year-old female presents to the emergency room complaining of having a fall and striking her head. Patient was sitting in a chair on her porch. When she attempted to stand up she was having difficulty doing so and fell forward striking the left
frontal region. No loss of conscious. She does take oral anticoagulant in the form of Xarelto. Neck pain. She denies any other injury. Patient has been up and ambulating. She typically ambulates with a walker. She had been feeling at her
baseline health until the fall.
Past History
Past History
ED Past Medical History: GERD, NIDDM and Other (Kidney stones)
ED Past Surgical History: Appendectomy, Cholecystectomy, Gynecological (Hysterectomy), Orthopedic (Right rotator cuff), Tonsilectomy, Urological (Lithotripsy) and Other (Hiatal hernia repair, left breast lumpectomy)
Social History
Tobacco: Non-smoker
Alcohol: None
Drug: None
Personal:
Phy Exam
Physical Exam
Physical Exam:
General: Awake, Alert, Oriented X3. No acute distress.
Vitals: unremarkable
Head: Small left frontal hematoma
Eyes: Pupils equal, EOMI
Throat: Airway intact, no exudates
Neck: Trachea midline, no tenderness palpation of the midline cervical spine
Chest: Mild tenderness palpation right lower anterior chest wall
Lungs: Clear and equal b/l
Heart: Regular rate, no murmurs
Abd: Soft, Nontender, No pulsatile mass
Neuro: Nonfocal
Skin: Warm, dry, no rash
Extremities: pulses equal b/l, no edema. No pain with flexion or extension internal/external rotation of bilateral hips
Course
Orders/Labs/Results
Orders:
Orders
06/24/25 17:10
CT Head W/o Iv Contrast Urgent
Comment:
Reason For Exam: fall, head strike on blood thinner
06/24/25 17:59
CR Chest - 2 Views Urgent
Comment:
Reason For Exam: fall, chest pain
06/24/25 18:02
Acetaminophen [Tylenol] 1,000 mg PO NOW STA
Vital Signs
Initial and Last Documented VS:
Initial Vital Signs
Temp Pulse Resp BP Pulse Ox
97.7 F 89 18 135/71 96
06/24/25 17:05 06/24/25 17:05 06/24/25 17:05 06/24/25 17:05 06/24/25 17:05
Last Documented Vital Signs
Temp Pulse Resp BP Pulse Ox
97.7 F 80 18 135/71 94
06/24/25 17:05 06/24/25 18:45 06/24/25 18:45 06/24/25 17:05 06/24/25 18:45
MDM/Problems Addressed
Differential Diagnosis Includes:
Forehead contusion, subdural, subarachnoid
MDM/Problems Addressed:
Head CT shows no acute abnormality. Patient ambulatory here.
*Radiology
Radiology exam reviewed: preliminary read by ED provider (No acute abnormality my review of patient's chest x-ray. She does have elevated right hemidiaphragm which appears chronic) and radiology read reviewed
*Pulse Oximetry
SaO2: 96
Patient hypoxic: no
*Critical Care Note
Total Time (30-74mins, 75-104mins- exclusive of procedures): Not Applicable
ED Attending Note
-
Portions of this chart may have been created with voice recognition software.� Occasional wrong word or��sound alike� substitutions may have occurred due to the inherent limitations of voice recognition software.
Discharge Plan
Departure
Patient Disposition: Home (Routine Discharge)
Date of Disposition: 06/24/25
Time of Disposition: 18:36
Patient with high blood pressure during this ER visit?: No
Condition: Good
Discharge Problem:
Head injury, Chest wall contusion
Instructions: Head Injury in Adults (DC), Contusion (DC), Preventing falls in adults
Prescriptions:
No Action
simvastatin 10 MG tablet
10 mg PO HS
metoprolol succinate 25 mg Tablet Extended Release 24 Hr
25 mg PO DAILY
Rx Instructions:
10/07/2023, HOLD for HR<60.
methotrexate sodium 2.5 mg Tablet
20 mg PO TH@1700
folic acid 1 mg Tablet
1 mg PO BID
methenamine hippurate [Hiprex] 1 gram Tablet
1 g PO BID
omeprazole 20 mg Tablet,Delayed Release (Dr/Ec)
20 mg PO DAILY
magnesium hydroxide [Milk of Magnesia] 400 mg/5 mL Suspension
30 ml PO DAILY PRN (Reason: if no BM x 2 days)
bisacodyl [Dulcolax (bisacodyl)] 10 mg Suppository
10 mg [place] DAILY PRN (Reason: if no BM in 8hr after MOM)
Fleet Enema 19-7 gram/118 mL Enema
118 ml [place] DAILYPRN PRN (Reason: if no BM 8hr after supp. )
cholecalciferol (vitamin D3) 50 mcg (2,000 unit) Tablet
50 mcg PO DAILY
furosemide [Lasix] 40 mg tablet
40 mg PO DAILY PRN (Reason: weight gain )
Rx Instructions:
10/07/2023, (furosemide 40 mg PO DAILYPRN weight gain of 1-3 lbs/24 hours, 3-5 lbs/week).
dapagliflozin propanediol [Farxiga] 10 mg tablet
10 mg PO DAILY
Xarelto 20 mg Tablet
20 mg PO QPM Qty: 30 0RF
Referrals:
Mary Goyal DO [Family Provider, Family Practice]
Interventions
Interventions:
*Risk Screen - Suicide Last Done: 06/24/25 17:09
*General Assessment Last Done: 06/24/25 18:11
*Neglect/Abuse Screening Last Done: 06/24/25 17:09
*ED- Fall Risk Assessment Last Done: 06/24/25 17:31
*ED COVID-19 Vaccine History Last Done: 06/24/25 17:31
*ED Influenza Vaccine History Last Done: 06/24/25 17:31
*Nursing Disposition Last Done: 06/24/25 18:48
ED-Musculoskeletal Assessment Last Done: 06/24/25 18:11
ED- Neurological Assessment Last Done: 06/24/25 18:11
ED-Skin Assessment Last Done: 06/24/25 18:11
Discharge Date and Time
Discharge Date/Time: 06/24/25 18:50
Print Language: BAHAMIAN
[2025-06-24] MEDS: TYLENOL 1000 MG PO (18:07)
== END 2025-06-24 18:50 | disposition home or self-care (01) ==
LOC: EMR 17:03
PROVIDERS: EMERGENCY PHYSICIAN Emergency Medicine; FAMILY PHYSICIAN Internal Medicine
DX: S09.90XA Unspecified injury of head, initial encounter (principal); S20.211A Contusion of right front wall of thorax, initial encounter; W01.10XA Fall on same level from slipping, tripping and stumbling with subsequent striking against unspecified object, initial encounter; Y92.008 Other place in unspecified non-institutional (private) residence as the place of occurrence of the external cause; E11.9 Type 2 diabetes mellitus without complications; K21.9 Gastro-esophageal reflux disease without esophagitis; Z79.01 Long term (current) use of anticoagulants; Z79.84 Long term (current) use of oral hypoglycemic drugs
CPT/HCPCS: 99284; 70450; 71046